=== PATIENT | male | born 1970 | race Caucasian/White ===

== ENCOUNTER 2016-06-18 09:51 | Emergency (ER) | payer OTHER ==
--- NOTE | 2016-06-18 10:40 | ED ---
Extremity Problem HPI - General Chief complaint: Extremity Problem,Nontraumatic Stated complaint: Foot pain Time Seen by Provider: 06/18/16 10:26 Source: patient Mode of arrival: ambulatory Limitations: no limitations - History of Present Illness Initial comments: 45-year-old male presenting for gout attack in his left foot MTP. Patient states he's had recurrent issues with gout flareups in both of his feet over the past several years. He is not currently on allopurinol. He states that he believes this was triggered by eating steak about a week ago. He denies any injury or trauma to the area. He denies any fevers or chills. - Related Data Home Medications Medication Instructions Recorded Confirmed Aspirin 81 mg PO DAILY 10/12/13 06/18/16 Previous Rx's Medication Instructions Recorded Indomethacin [Indocin] 50 mg PO TID #21 capsule 06/18/16 Allergies Allergy/AdvReac Type Severity Reaction Status Date / Time No Known Allergies Allergy Verified 06/18/16 10:36 Review of Systems ROS Statement: Those systems with pertinent positive or pertinent negative responses have been documented in the HPI. ROS Other: All systems not noted in ROS Statement are negative. Past Medical History Past Medical History: No Reported History History of Any Multi-Drug Resistant Organisms: None Reported Past Surgical History: No Surgical Hx Reported Past Psychological History: No Psychological Hx Reported Smoking Status: Current every day smoker Past Alcohol Use History: None Reported Past Drug Use History: None Reported General Exam - General Exam Comments Initial Comments: General: Awake and Alert. No acute distress. Does not appear acutely ill. Eyes: NELIDA, EOM intact. No scleral icterus. HENT: Atraumatic, normocephalic. Mucous membranes moist. Trachea midline. Neck: The neck is supple, there is no tenderness or JVD. Cardiovascular: Regular rate and rhythm. Distal pulses intact. Respiratory: No respiratory distress. Nonlabored breathing. Normal respiratory rate. Gastrointestinal: Soft, Nontender. Non-distended. Musculoskeletal: No tenderness. Normal ROM. No gross deformity. No strength deficits. Left foot MTP with overlying erythema and tenderness. He is able to move all digits. Good distal pulses. Sensation intact distally. Neurological: A&Ox3. CN II-XII grossly intact, There are no obvious motor or sensory deficits. Coordination appears grossly intact. Speech is normal. Gait is normal. Skin: Skin is warm and dry and no rashes or lesions are noted. Psychiatric: Cooperative, appropriate mood & affect, normal judgment. Limitations: no limitations Course Vital Signs 06/18/16 06/18/16 10:22 10:52 Temperature 97.6 F 97.7 F Pulse Rate 79 75 Respiratory 20 16 Rate Blood Pressure 178/100 160/78 O2 Sat by Pulse 99 98 Oximetry Medical Decision Making - Medical Decision Making 45-year-old male presenting for left foot gout flareup. Patient without significant risk concerning for septic joint at this time. Symptoms do appear consistent with gout flare. Discussed dietary recommendations. Patient was written for indomethacin for symptomatic management. Discussed elevating affected limb and heat packs as well. Discussed importance of starting allopurinol given the recurrent nature of this, although he will need to follow up with his PCP after this flareup has resolved to pursue this. Patient voices understanding of this. Patient is otherwise stable and safe for discharge home. Discussed concerning signs symptoms for immediate return to the ED. Patient is agreeable to plan of discharge home. Disposition Clinical Impression: Acute gout of left foot Disposition: HOME SELF-CARE Condition: Stable Instructions: Gout (ED), Low Purine Diet (ED) Additional Instructions: Please follow up with your regular doctor in the next few weeks after the flare up has resolved, and discuss being started on Allopurinol to help prevent further gout flareups. Prescriptions: Indomethacin [Indocin] 50 mg PO TID #21 capsule Referrals: None,Stated [Primary Care Provider] - 1-2 days Time of Disposition: 10:35
[2016-06-18 10:54] VITALS: BP 160/78; PULSE 75; RESP 16; TEMP 97.7
== END 2016-06-18 10:52 | disposition home or self-care (01) ==
LOC: EC 09:51
DX: M10.9 Gout, unspecified (principal); F17.200 Nicotine dependence, unspecified, uncomplicated; Z79.82 Long term (current) use of aspirin
CPT/HCPCS: 99283

== ENCOUNTER 2016-12-20 11:52 | Emergency (ER) | payer OTHER ==
[2016-12-20 11:58] VITALS: TEMP 99
[2016-12-20] MEDS ORDERED: KETOROLAC 30 MG/ML 1 ML VIAL IVP STA (12:05)
--- NOTE | 2016-12-20 12:06 | ED ---
General Adult HPI - General Chief complaint: Chest Pain Stated complaint: chest pain Time Seen by Provider: 12/20/16 12:04 Source: patient, family, RN notes reviewed, old records reviewed Mode of arrival: wheelchair Limitations: no limitations - History of Present Illness Initial comments: This is a 46-year-old male to the ER for evaluation of chest pain. Left sided chest pain left-sided breast pain, pain for 2 days. Consistent. Patient does have history of high blood pressures of alcohol abuse history of smoking abuse. No recent fevers no cough no congestion or shortness of breath. Pain is worse with movement pain is rated on his left rib right under his left nipple. Patient was recently admitted in the hospital for blood pressure control and evaluation of his heart, patient states all symptoms and test came back normal all symptoms have resolved and patient has having much better blood pressure control at this time - Related Data Home Medications Medication Instructions Recorded Confirmed Aspirin 81 mg PO DAILY 10/12/13 06/18/16 Allergies Allergy/AdvReac Type Severity Reaction Status Date / Time atenolol Allergy Unknown Verified 12/20/16 13:11 Review of Systems ROS Statement: Those systems with pertinent positive or pertinent negative responses have been documented in the HPI. ROS Other: All systems not noted in ROS Statement are negative. Past Medical History Past Medical History: Hypertension History of Any Multi-Drug Resistant Organisms: None Reported Past Surgical History: No Surgical Hx Reported Past Psychological History: Anxiety Smoking Status: Current every day smoker Past Alcohol Use History: Daily Past Drug Use History: None Reported General Exam - General Exam Comments Initial Comments: Reproducible tenderness to left ribs Limitations: no limitations General appearance: alert, in no apparent distress Head exam: Present: atraumatic, normocephalic, normal inspection Eye exam: Present: normal appearance, PERRL, EOMI. Absent: scleral icterus, conjunctival injection, periorbital swelling ENT exam: Present: normal exam, mucous membranes moist Neck exam: Present: normal inspection. Absent: tenderness, meningismus, lymphadenopathy Respiratory exam: Present: normal lung sounds bilaterally. Absent: respiratory distress, wheezes, rales, rhonchi, stridor Cardiovascular Exam: Present: regular rate, normal rhythm, normal heart sounds. Absent: systolic murmur, diastolic murmur, rubs, gallop, clicks GI/Abdominal exam: Present: soft, normal bowel sounds. Absent: distended, tenderness, guarding, rebound, rigid Extremities exam: Present: normal inspection, full ROM, normal capillary refill. Absent: tenderness, pedal edema, joint swelling, calf tenderness Back exam: Present: normal inspection Neurological exam: Present: alert, oriented X3, CN II-XII intact Psychiatric exam: Present: normal affect, normal mood Skin exam: Present: warm, dry, intact, normal color. Absent: rash Course Vital Signs 12/20/16 11:55 Temperature 99 F Pulse Rate 74 Respiratory 16 Rate Blood Pressure 150/78 O2 Sat by Pulse 98 Oximetry - Reevaluation(s) Reevaluation #1: 12/20/16 13:14 Patient does have improvement pain control with Toradol, no acute distress EKG Findings - EKG Comments: EKG Findings:: EKG shows normal sinus of 60, KY 136, QRS 100, QTC 414 Medical Decision Making - Medical Decision Making 38 female here for evaluation of chest pain. Left-sided chest pain, no fevers cough congestion history of high blood pressure smoking, at this time patient would like to be discharged home, however considerable EKG is negative, both lipase and DVT, d-dimer negative - Radiology Data Radiology results: report reviewed, image reviewed Disposition Clinical Impression: Chest pain Disposition: HOME SELF-CARE Condition: Good Instructions: Chest Pain (ED) Referrals: Boni Monet MD [Primary Care Provider] - 1-2 days
--- NOTE | 2016-12-20 13:04 | XR ---
EXAMINATION TYPE: XR chest 2V DATE OF EXAM: 12/20/2016 COMPARISON: 07/15/2009 TECHNIQUE: PA and lateral views submitted. HISTORY: Chest pain FINDINGS: Subsegmental changes left lung base. Hyperinflation noted. Chronic rib deformities are seen. No overt failure. Hypertrophic and degenerative change of the spine. IMPRESSION: 1. No acute process. Correlate for COPD. 2. Subsegmental changes left lung base. Atelectasis favored over infiltrate. Correlate clinically. 3. Tiny nodularity overlying the cardiac border and lateral view may represent tiny granuloma short-t erm follow up CT chest is obtained.
[2016-12-20 13:32] LABS: Basophils % (A) 0 %; CH 33.2; CHCM 35.7; Eosinophils # (A) 0.2 k/uL (0-0.7); Eosinophils % (A) 3 %; HCT 44.5 % (39.0-53.0); HDW 2.11; HGB 15.9 gm/dL (13.0-17.5); Luc # (Auto) 0.14; Luc % (Auto) 2; Lymphocytes # (A) 1.3 k/uL (1.0-4.8); Lymphocytes % (A) 18 %; MCH 33.3 pg (25.0-35.0); MCHC 35.7 g/dL (31.0-37.0); MCV 93.1 fL (80.0-100.0); Mean Platelet Volume 7.5; Monocytes # (A) 0.5 k/uL (0-1.0); Monocytes % (A) 7 %; Neutrophils # (A) 5.1 k/uL (1.3-7.7); Neutrophils % (A) 69 %; RBC 4.78 m/uL (4.30-5.90); RDW 11.9 % (11.5-15.5); WBC 7.4 k/uL (3.8-10.6); WBC (Perox) 7.05
[2016-12-20 13:46] VITALS: BP 131/80; PULSE 70; RESP 18
[2016-12-20 13:47] LABS: ALT 50 U/L (21-72); AST 35 U/L (17-59); Alkaline Phosphatase 112 U/L (38-126); Anion Gap 8 mmol/L; Blood Urea Nitrogen 17 mg/dL (9-20); Calcium 9.4 mg/dL (8.4-10.2); Carbon Dioxide 27 mmol/L (22-30); Chloride 107 mmol/L (98-107); Glucose 130 mg/dL (74-99); Magnesium 1.9 mg/dL (1.6-2.3); Non-African American GFR(MDRD) >60 (>60 ml/min/1.73 sqM); Potassium 3.8 mmol/L (3.5-5.1); Sodium 142 mmol/L (137-145); Total Bilirubin 0.7 mg/dL (0.2-1.3); Total Protein 6.4 g/dL (6.3-8.2)
[2016-12-20 13:48] LABS: Creatine Kinase 87 U/L (55-170)
[2016-12-20 13:49] LABS: INR 1.1 (<1.2)
[2016-12-20] MEDS ORDERED: RX INFO: IV CONTRAST WAS GIVEN 1 EACH MISC MISCELLANE PRN (13:56)
[2016-12-20 14:00] LABS: Creatine Kinase MB 1.8 ng/mL (0.0-2.4); Troponin I <0.012 ng/mL (0.000-0.034)
--- NOTE | 2016-12-20 14:40 | CT ---
EXAMINATION TYPE: CT angio chest DATE OF EXAM: 12/20/2016 2:29 PM COMPARISON: NONE HISTORY: Lt side chest pain CT DLP: 389.1 mGycm Automated exposure control for dose reduction was used. CONTRAST: CTA scan of the thorax is performed with IV Contrast, patient injected with 77 mL of Omnipaque 350, p ulmonary embolism protocol. . FINDINGS: There is a 4 mm calcified granuloma in the right midlung there is a second, partially calci fied lesion along the major fissure on the right in the superior segment of the right lower lobe. Sev eral other calcified granulomas are identified. There is some airspace disease in the lateral aspect of the left lingula. There is some dependent ate lectasis. There is a small left effusion. There is no significant axillary, mediastinal or hilar adenopathy. There is no evidence of pulmonary embolus. Aorta is normal in caliber without evidence of dissection. The heart is not enlarged. There is a small hiatal hernia present. There is evidence of old granulomatous disease within the spleen. There is hypertrophic spondylosis within the dorsal spine. IMPRESSION: 1. THIS EXAMINATION IS NEGATIVE FOR PULMONARY EMBOLUS. 2. EVIDENCE OF OLD GRANULOMATOUS DISEASE INVOLVING THE SPLEEN AND LUNGS. 3. SMALL AMOUNT OF CONSOLIDATION IN THE LEFT LINGULA WITH CONCOMITANT EFFUSION. 4. DEGENERATIVE CHANGES WITHIN THE SPINE.
== END 2016-12-20 15:10 | disposition home or self-care (01) ==
LOC: EC 11:52
DX: R07.9 Chest pain, unspecified (principal); N64.4 Mastodynia; I10 Essential (primary) hypertension; F17.200 Nicotine dependence, unspecified, uncomplicated; Z79.82 Long term (current) use of aspirin; Z88.8 Allergy status to other drugs, medicaments and biological substances
CPT/HCPCS: 36415; 93005; 85379; 83880; 80053; 82550; 82553; 83690; 83735; 84484; 85025; 85610; 85730; 71020; 71275; 99285; 96374; Q9967; J1885

== ENCOUNTER 2017-07-12 07:09 | Emergency (ER) | payer OTHER ==
[2017-07-12 07:15] VITALS: BP 161/95; PULSE 69; RESP 16; TEMP 97.4
[2017-07-12] MEDS ORDERED: KETOROLAC 60 MG/2 ML VIAL IM STA (07:47)
--- NOTE | 2017-07-12 07:51 | ED ---
General Adult HPI - General Chief complaint: Extremity Problem,Nontraumatic Stated complaint: Foot pain Time Seen by Provider: 07/12/17 07:10 Source: patient, RN notes reviewed Mode of arrival: ambulatory Limitations: no limitations - History of Present Illness Initial comments: This is a 47-year-old male who presents to the emergency department complaining of left foot pain. Patient states been hurting for the last couple of days he doesn't recall injuring it but it is swelled up in the middle of his foot and now it hurts to walk on. Patient states he is able to walk on it but he does a lot of walking all day and it's irritating he wanted to make sure he didn't have a fracture in his foot. Patient denies any ankle pain patient denies knee pain patient denies any direct trauma or injury to the foot. - Related Data Home Medications Medication Instructions Recorded Confirmed Bisoprolol-Hctz 5-6.25 mg [Ziac 1 tab PO DAILY 12/20/16 07/12/17 5-6.25] Previous Rx's Medication Instructions Recorded Ibuprofen [Motrin] 600 mg PO Q6HR PRN #20 tab 07/12/17 Allergies Allergy/AdvReac Type Severity Reaction Status Date / Time atenolol Allergy Unknown Verified 07/12/17 08:38 Review of Systems ROS Statement: Those systems with pertinent positive or pertinent negative responses have been documented in the HPI. ROS Other: All systems not noted in ROS Statement are negative. Past Medical History Past Medical History: Hypertension History of Any Multi-Drug Resistant Organisms: None Reported Past Surgical History: No Surgical Hx Reported Past Psychological History: Anxiety Smoking Status: Current every day smoker Past Alcohol Use History: Occasional Past Drug Use History: None Reported General Exam - General Exam Comments Initial Comments: GENERAL Patient is well-developed and well-nourished. Patient is in mild distress. EYES Patient's pupils are equal and round. Extraocular motion is intact SKIN Unremarkable NEURO The patient is alert and oriented 3 PYSCH Patient has normal interpersonal interactions. MUSCULOSKELETAL The top left foot is mildly swollen and is tender to palpation Limitations: no limitations Course Vital Signs 07/12/17 07:12 Temperature 97.4 F L Pulse Rate 69 Respiratory 16 Rate Blood Pressure 161/95 O2 Sat by Pulse 99 Oximetry Medical Decision Making - Medical Decision Making x-ray shows no acute injury. Disposition Clinical Impression: Foot sprain Disposition: HOME SELF-CARE Instructions: Foot Sprain (ED) Prescriptions: Ibuprofen [Motrin] 600 mg PO Q6HR PRN #20 tab PRN Reason: For pain Referrals: Boni Monet MD [Primary Care Provider] - 1-2 days Time of Disposition: 08:49
--- NOTE | 2017-07-12 08:40 | XR ---
Left foot HISTORY: Pain and swelling 3 views of the left foot Bone mineralization, joint spaces and alignment are maintained. Soft tissue swelling noted at the fir st metatarsophalangeal joint and dorsum of the foot. Some degenerative change present at the joint. T here is a plantar calcaneal spur. Spurring also present at the intertarsal joints. IMPRESSION: Osteoarthritis.
== END 2017-07-12 09:06 | disposition home or self-care (01) ==
LOC: EC 07:09
DX: S93.602A Unspecified sprain of left foot, initial encounter (principal); I10 Essential (primary) hypertension; F17.200 Nicotine dependence, unspecified, uncomplicated; Z79.899 Other long term (current) drug therapy; Z88.8 Allergy status to other drugs, medicaments and biological substances
CPT/HCPCS: 73630; 99283; 96372; J1885

== ENCOUNTER 2018-01-28 06:54 | Emergency (ER) | payer OTHER ==
[2018-01-28] MEDS ORDERED: MECLIZINE 12.5 MG TAB PO STA (07:11)
[2018-01-28] MEDS ORDERED: SODIUM CHLORIDE 0.9% 1,000 ML IV STA ×2 (07:11)
--- NOTE | 2018-01-28 07:15 | ED ---
Dizziness HPI - General Chief Complaint: Dizziness Stated Complaint: ANXIETY Time Seen by Provider: 01/28/18 07:02 Source: patient, RN notes reviewed, old records reviewed Mode of arrival: ambulatory Limitations: no limitations - History of Present Illness Initial Comments: 47-year-old male presents emergency Department due to complaint of dizziness. Patient reports that he woke up around 3 AM feeling dizzy and lightheaded. Patient states that his took his blood pressure before leaving for work and he does not remember the number but feels like the diastolic number was 160. Patient states that he has had no fevers or chills. He denies any reasons for dehydration including nausea vomiting or diarrhea. He denies any significant chest pain. He does relate that he has a history of anxiety. Patient is a smoker. Patient denies any headaches. - Related Data Home Medications Medication Instructions Recorded Confirmed Bisoprolol-Hctz 5-6.25 mg [Ziac 1 tab PO DAILY 12/20/16 01/28/18 5-6.25] Aspirin EC [Ecotrin Low Dose] 81 mg PO DAILY 01/28/18 01/28/18 Allergies Allergy/AdvReac Type Severity Reaction Status Date / Time atenolol Allergy Unknown Verified 01/28/18 07:20 Review of Systems ROS Statement: Those systems with pertinent positive or pertinent negative responses have been documented in the HPI. ROS Other: All systems not noted in ROS Statement are negative. Past Medical History Past Medical History: Hypertension History of Any Multi-Drug Resistant Organisms: None Reported Past Surgical History: No Surgical Hx Reported Past Psychological History: Anxiety Smoking Status: Current every day smoker Past Alcohol Use History: Occasional Past Drug Use History: None Reported General Exam - General Exam Comments Initial Comments: 47-year-old male. Alert and oriented 3. No acute distress. Limitations: no limitations General appearance: alert, in no apparent distress Head exam: Present: atraumatic, normocephalic, normal inspection Eye exam: Present: normal appearance, PERRL, EOMI. Absent: scleral icterus, conjunctival injection, periorbital swelling ENT exam: Present: normal exam, mucous membranes moist Neck exam: Present: normal inspection. Absent: tenderness, meningismus, lymphadenopathy Respiratory exam: Present: normal lung sounds bilaterally. Absent: respiratory distress, wheezes, rales, rhonchi, stridor Cardiovascular Exam: Present: regular rate, normal rhythm, normal heart sounds. Absent: systolic murmur, diastolic murmur, rubs, gallop, clicks GI/Abdominal exam: Present: soft, normal bowel sounds. Absent: distended, tenderness, guarding, rebound, rigid Extremities exam: Present: normal inspection, full ROM, normal capillary refill. Absent: tenderness, pedal edema, joint swelling, calf tenderness Back exam: Present: normal inspection Neurological exam: Present: alert, oriented X3, CN II-XII intact Psychiatric exam: Present: normal affect, normal mood Skin exam: Present: warm, dry, intact, normal color. Absent: rash Course Vital Signs 01/28/18 01/28/18 06:58 07:57 Temperature 98.2 F Pulse Rate 51 L 49 L Respiratory 16 16 Rate Blood Pressure 149/91 160/90 O2 Sat by Pulse 99 96 Oximetry Medical Decision Making - Medical Decision Making 47-year-old male presents emergency Department chief complaint of dizziness. He questions that he was having a panic attack this is occurring around 3 AM today. Patient is some episodes of vomiting complaint of increased gas production. A discussed at this time patient's EKG shows no significant changes. He did report that he's had outpatient stress test with the past year at [facility]. Patient had no abdominal tenderness, lung sounds are clear to auscultation and heart was normal rate and rhythm. Troponin was negative at this time. Patient's lab work otherwise was unremarkable. I discussed at this time patient's etiology could be related to an anxiety attack. He does state he feels better upon arriving to the emergency department. Discussed also the possibility of gallbladder etiology for increased belching. Patient has been advised that close follow-up with his primary care physician and to return to the emergency department if any alarming signs or symptoms occur. Discussed the Patient could likely get further testing per the gallbladder as well as recommended following up with a loan and credit manager. I did discuss the case with Dr. Raphael. Patient understands treatment plan will comply. Return parameters were discussed. - Lab Data Result diagrams: 01/28/18 07:29 01/28/18 07:29 Lab Results 01/28/18 01/28/18 01/28/18 Range/Units 07:29 07:29 07:29 WBC 5.3 (3.8-10.6) k/uL RBC 4.69 (4.30-5.90) m/uL Hgb 14.9 (13.0-17.5) gm/dL Hct 43.7 (39.0-53.0) % MCV 93.0 (80.0-100.0) fL MCH 31.8 (25.0-35.0) pg MCHC 34.2 (31.0-37.0) g/dL RDW 12.0 (11.5-15.5) % Plt Count 152 (150-450) k/uL Neutrophils % 61 % Lymphocytes % 24 % Monocytes % 8 % Eosinophils % 5 % Basophils % 1 % Neutrophils # 3.3 (1.3-7.7) k/uL Lymphocytes # 1.3 (1.0-4.8) k/uL Monocytes # 0.4 (0-1.0) k/uL Eosinophils # 0.3 (0-0.7) k/uL Basophils # 0.0 (0-0.2) k/uL Sodium 145 (137-145) mmol/L Potassium 4.0 (3.5-5.1) mmol/L Chloride 111 H (98-107) mmol/L Carbon Dioxide 25 (22-30) mmol/L Anion Gap 9 mmol/L BUN 21 H (9-20) mg/dL Creatinine 0.93 (0.66-1.25) mg/dL Est GFR (CKD-EPI)AfAm >90 (>60 ml/min/1.73 sqM) Est GFR (CKD-EPI)NonAf >90 (>60 ml/min/1.73 sqM) Glucose 113 H (74-99) mg/dL Calcium 9.5 (8.4-10.2) mg/dL Total Bilirubin 0.5 (0.2-1.3) mg/dL AST 35 (17-59) U/L ALT 36 (21-72) U/L Alkaline Phosphatase 97 (38-126) U/L Troponin I <0.012 (0.000-0.034) ng/mL Total Protein 6.7 (6.3-8.2) g/dL Albumin 3.7 (3.5-5.0) g/dL 01/28/18 07:34 EKG shows sinus bradycardia with marked sinus arrhythmia, incomplete right bundle block. Whirling EKG noted. Ventricular rate of 51 bpm. LA interval is 170 ms. QRS ration 104 ms. QTQTC's 44/400 ms. - Radiology Data Interpreted by me: Chest x-ray was reviewed and negative for any acute cardiac pulmonary process. This is read by Dr. gregg. Disposition Clinical Impression: Light-headed feeling Disposition: HOME SELF-CARE Condition: Good Instructions: Dizziness (ED) Additional Instructions: Patient is advised to rest, remain hydrated. Have close follow-up with primary care physician within the week. Follow up in regards to possible anxiety , gallbladder issues. Return to the emergency department if any alarming signs or symptoms occur. Is patient prescribed a controlled substance at d/c from ED?: No Referrals: Boni Monet MD [Primary Care Provider] - 1-2 days Time of Disposition: 08:44
[2018-01-28 07:38] LABS: Basophils % (A) 1 %; Eosinophils # (A) 0.3 k/uL (0-0.7); Eosinophils % (A) 5 %; HCT 43.7 % (39.0-53.0); HGB 14.9 gm/dL (13.0-17.5); Lymphocytes # (A) 1.3 k/uL (1.0-4.8); Lymphocytes % (A) 24 %; MCH 31.8 pg (25.0-35.0); MCHC 34.2 g/dL (31.0-37.0); Mean Platelet Volume 7.8; Monocytes # (A) 0.4 k/uL (0-1.0); Monocytes % (A) 8 %; Neutrophils # (A) 3.3 k/uL (1.3-7.7); Neutrophils % (A) 61 %; Platelet Count 152 k/uL (150-450); RBC 4.69 m/uL (4.30-5.90); WBC 5.3 k/uL (3.8-10.6)
[2018-01-28 07:46] LABS: ALT 36 U/L (21-72); AST 35 U/L (17-59); Albumin 3.7 g/dL (3.5-5.0); Alkaline Phosphatase 97 U/L (38-126); Anion Gap 9 mmol/L; Blood Urea Nitrogen 21 mg/dL (9-20); Calcium 9.5 mg/dL (8.4-10.2); Carbon Dioxide 25 mmol/L (22-30); Chloride 111 mmol/L (98-107); Glucose 113 mg/dL (74-99); Sodium 145 mmol/L (137-145); Total Bilirubin 0.5 mg/dL (0.2-1.3); Total Protein 6.7 g/dL (6.3-8.2)
[2018-01-28 07:59] VITALS: PULSE 49
--- NOTE | 2018-01-28 08:01 | XR ---
EXAMINATION TYPE: XR chest 2V DATE OF EXAM: 01/28/2018 COMPARISON: Chest x-ray and CT chest December 20, 2016. HISTORY: Shortness of breath and dizziness. TECHNIQUE: Frontal and lateral views of the chest are obtained. FINDINGS: There is no focal air space opacity, pleural effusion, or pneumothorax seen. Some calcifi ed nodules or granulomas scattered throughout the right lung are redemonstrated The cardiac silhouett e size is within normal limits. There are several old posterior lateral left upper to mid rib fractur es redemonstrated. IMPRESSION: No acute cardiopulmonary process.
[2018-01-28 08:47] LABS: Appearance,Urine Clear (Clear); Bilirubin,Urine Negative (Negative); Blood,Urine Trace (Negative); Color,Urine Light Yellow; Glucose,Urine (UA) Negative (Negative); Ketones,Urine Negative (Negative); Leukocyte Esterase,Urine Negative (Negative); Mucus,Urine Rare /hpf; Nitrite,Urine Negative (Negative); PH, Urine 5.5 (5.0-8.0); Protein,Urine Negative (Negative); RBC,Urine 2 /hpf (0-5); Specific Gravity,Urine 1.011 (1.001-1.035); Urobilinogen,Urine <2.0 mg/dL (<2.0); WBC,Urine <1 /hpf (0-5)
[2018-01-28 08:52] LABS: Amphetamine Screen,Urine Not Detected (NotDetected); Barbiturate Screen,Urine Not Detected (NotDetected); Benzodiazepines Screen,Urine Not Detected (NotDetected); Cocaine Screen,Urine Not Detected (NotDetected); Methadone Screen, Urine Not Detected (NotDetected); Opiate Screen,Urine Not Detected (NotDetected); Oxycodone Screen, Urine Not Detected (NotDetected); Phencyclidine Screen,Urine Not Detected (NotDetected); Tricyclic Antidepressant,Urine Not Detected (NotDetected); Urn Cannabinoid Scrn Not Detected (NotDetected)
[2018-01-28 09:01] VITALS: BP 152/92; RESP 18; TEMP 97.2
== END 2018-01-28 09:01 | disposition home or self-care (01) ==
LOC: EC 06:54
DX: R42 Dizziness and giddiness (principal); R11.10 Vomiting, unspecified; F41.9 Anxiety disorder, unspecified; I10 Essential (primary) hypertension; F17.200 Nicotine dependence, unspecified, uncomplicated; Z79.82 Long term (current) use of aspirin; Z79.899 Other long term (current) drug therapy; Z88.8 Allergy status to other drugs, medicaments and biological substances
CPT/HCPCS: 36415; 71046; 80053; 80306; 81001; 84484; 85025; 93005; 96360; 99284

== ENCOUNTER 2018-11-08 13:27 | Emergency (ER) | payer OTHER ==
[2018-11-08 13:45] VITALS: BP 143/99; PULSE 90; RESP 18; TEMP 98.1
[2018-11-08] MEDS ORDERED: KETOROLAC 60 MG/2 ML VIAL IM STA (14:27)
--- NOTE | 2018-11-08 14:46 | ED ---
General Adult HPI - General Chief complaint: Extremity Injury, Lower Stated complaint: Gout Time Seen by Provider: 11/08/18 13:47 Source: patient, RN notes reviewed, old records reviewed Mode of arrival: ambulatory Limitations: no limitations - History of Present Illness Initial comments: 48-year-old male patient past medical history of gout presents ED for reported gout exacerbation that has been ongoing for 1 week. Patient reports that he has pain in his right great toe as well as bases ankle. Patient reports that these are identical to his gout symptoms of the past. Patient has a new concerning symptoms, denies any fevers chills, nausea vomiting diarrhea, denies other complaints. Systemic: Pt denies fatigue, fever/chills, rash. Pt denies weakness, night sweats, weight loss. Neuro: Pt denies headache, visual disturbances, syncope or pre-syncope. HEENT: Pt denies ocular discharge or irritation, otalgia, rhinorrhea, pharyngiti s or notable lymphadenopathy. Cardiopulmonary: Pt denies chest pain, SOB, heart palpitations, dyspnea on exertion. Abdominal/GI: Pt denies abdominal pain, n/v/d. : Pt denies dysuria, burning w/ urination, frequency/urgency. Denies new onset urinary or bowel incontinence. MSK: Pt deniesoss of strength or function in extremities. Neuro: Pt denies new onset weakness, paresthesias. - Related Data Home Medications Medication Instructions Recorded Confirmed Bisoprolol-Hctz 5-6.25 mg [Ziac 1 tab PO DAILY 12/20/16 01/28/18 5-6.25] Aspirin EC [Ecotrin Low Dose] 81 mg PO DAILY 01/28/18 01/28/18 Previous Rx's Medication Instructions Recorded Ibuprofen [Motrin] 600 mg PO Q6HR PRN #40 day 11/08/18 Allergies Allergy/AdvReac Type Severity Reaction Status Date / Time atenolol Allergy Unknown Verified 01/28/18 07:20 Review of Systems ROS Statement: Those systems with pertinent positive or pertinent negative responses have been documented in the HPI. ROS Other: All systems not noted in ROS Statement are negative. Past Medical History Past Medical History: Hypertension Additional Past Medical History / Comment(s): gout History of Any Multi-Drug Resistant Organisms: None Reported Past Surgical History: No Surgical Hx Reported Past Psychological History: Anxiety Smoking Status: Current every day smoker Past Alcohol Use History: Occasional Past Drug Use History: None Reported General Exam - General Exam Comments Initial Comments: Constitutional: NAD, AOX3, Pt has pleasant affect. HEENT: NC/AT, trachea midline, neck supple, no lymphadenopathy. Posterior pharynx non erythematous, without exudates. External ears appear normal, without discharge. Mucous membranes moist. Eyes PERRLA, EOM intact. There is no scleral icterus. No pallor noted. Cardiopulmonary: RRR, no murmurs, rubs or gallops, no JVD noted. Lungs CTAB in anterior and posterior vides. No peripheral edema. Abdominal exam: Abdomen soft and non-distended. Abdomen non-tender to palpation in all 4 quadrants. Bowel sounds active in LLQ. No hepatosplenomegaly. No ecchymosis Neuro: CN II-XII grossly intact. No nuchal rigidity. No raccon eyes, no baldwin sign, no hemotympanum. No cervical spinal tenderness. MSK: Right great toe, anterior aspect of ankle mortise mildly tender to palpation. No other areas of tenderness. No erythema or skin changes. Distal pulses intact and equal. Capillary refill less than 2 seconds. No posterior calf tenderness bilaterally, homans sign negative bilaterally. Posterior tibialis and radial pulse +2 bilaterally. Sensation intact in upper and lower extremities. Full active ROM in upper and lower extremities, 5/5 stregnth. Limitations: no limitations Course Vital Signs 11/08/18 13:41 Temperature 98.1 F Pulse Rate 90 Respiratory 18 Rate Blood Pressure 143/99 O2 Sat by Pulse 98 Oximetry Medical Decision Making - Medical Decision Making 48-year-old male patient presents to ED with chief complaint of gout exacerbation. Patient wasn't stable, afebrile. Physicla exam displayed: Right great toe, anterior aspect of ankle mortise mildly tender to palpation. No other areas of tenderness. No erythema or skin changes. Distal pulses intact and equal. Patient administered a dose of Toradol, will discharge ibuprofen. Patient follow up with primary care provider tomorrow. Return to ER patient worsens. Case discussed with Dr. George. Disposition Clinical Impression: Gout Disposition: HOME SELF-CARE Condition: Stable Instructions (If sedation given, give patient instructions): Low Purine Diet (ED), Gout (ED) Additional Instructions: Patient to adhere to previously discussed treatment plan and will take medication(s) as directed. Patient to follow up with PCP in 1-2 days. Patient to return to ED if symptoms do not improve. Take medication as directed. Follow-up with primary care provider tomorrow. Return to ER if condition worsens. Prescriptions: Ibuprofen [Motrin] 600 mg PO Q6HR PRN #40 day PRN Reason: Pain Is patient prescribed a controlled substance at d/c from ED?: No Referrals: Boni Monet MD [Primary Care Provider] - 1-2 days
== END 2018-11-08 15:08 | disposition home or self-care (01) ==
LOC: EC 13:27
DX: M10.9 Gout, unspecified (principal); I10 Essential (primary) hypertension; F17.200 Nicotine dependence, unspecified, uncomplicated; Z79.82 Long term (current) use of aspirin; Z79.899 Other long term (current) drug therapy; Z88.8 Allergy status to other drugs, medicaments and biological substances
CPT/HCPCS: 99283; 96372; J1885

== ENCOUNTER 2019-08-20 11:38 | Emergency (ER) | payer OTHER ==
[2019-08-20 11:47] VITALS: TEMP 98
[2019-08-20] MEDS ORDERED: KETOROLAC 60 MG/2 ML VIAL IM STA (12:04)
--- NOTE | 2019-08-20 12:08 | ED ---
General Adult HPI - General Chief complaint: Extremity Problem,Nontraumatic Stated complaint: possible blood clot Time Seen by Provider: 08/20/19 11:45 Source: patient, RN notes reviewed, old records reviewed Mode of arrival: wheelchair Limitations: no limitations - History of Present Illness Initial comments: This is a 49-year-old male who presents to the emergency department complaining of posterior right thigh pain. Patient states it started yesterday at work and now is become much more sensitive particularly to touch. Patient does not notice any swelling to the right patient denies any redness to the area. 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 Patient denies any swelling to the calf pain to the calf. Patient denies any lower leg symptoms. Patient states touching it or extending the lower leg completely increases the pain in that area. Patient points to the lower medial posterior aspect of the thigh. She denies any fever chills per patient denies any difficulty breathing shortest breath or chest pain. - Related Data Home Medications Medication Instructions Recorded Confirmed Bisoprolol-Hctz 5-6.25 mg [Ziac 1 tab PO DAILY 12/20/16 08/20/19 5-6.25] Aspirin EC [Ecotrin Low Dose] 81 mg PO DAILY 01/28/18 08/20/19 Previous Rx's Medication Instructions Recorded Apixaban [Eliquis Starter Pack 0 mg PO DIRECTED 30 Days #1 pack 08/20/19 (for VTE)] Allergies Allergy/AdvReac Type Severity Reaction Status Date / Time atenolol Allergy Unknown Verified 08/20/19 12:55 Review of Systems ROS Statement: Those systems with pertinent positive or pertinent negative responses have been documented in the HPI. ROS Other: All systems not noted in ROS Statement are negative. Past Medical History Past Medical History: Hypertension Additional Past Medical History / Comment(s): gout History of Any Multi-Drug Resistant Organisms: None Reported Past Surgical History: No Surgical Hx Reported Past Psychological History: Anxiety Smoking Status: Current every day smoker Past Alcohol Use History: Occasional Past Drug Use History: None Reported General Exam - General Exam Comments Initial Comments: GENERAL: Patient is well-developed and well-nourished. Patient is nontoxic and well- hydrated and is in mild distress. ENT: Neck has full range of motion without eliciting any pain. EYES: The sclera were anicteric and conjunctiva were pink and moist. Extraocular movements were intact and pupils were equal round and reactive to light. Eyelids were unremarkable. PULMONARY: Unlabored respirations. Good breath sounds bilaterally. No audible rales rhonchi or wheezing was noted. CARDIOVASCULAR: There is a regular rate and rhythm without any murmurs gallops or rubs. Patient has good DP pulses on the right ABDOMEN: Soft and nontender with normal bowel sounds. No palpable organomegaly was noted. There is no palpable pulsatile mass. SKIN: Skin is clear with no lesions or rashes and otherwise unremarkable. NEUROLOGIC: Patient is alert and oriented x3. Cranial nerves II through XII are grossly intact. Motor and sensory are also intact. Normal speech, volume and content. Symmetrical smile. MUSCULOSKELETAL: Normal extremities with adequate strength and full range of motion. Patient has some tenderness to the distal medial posterior aspect of the right thigh. There is no area of redness or swelling. LYMPHATICS: No significant lymphadenopathy is noted PSYCHIATRIC: Normal psychiatric evaluation Limitations: no limitations Course Vital Signs 08/20/19 11:44 Temperature 98 F Pulse Rate 62 Respiratory 18 Rate Blood Pressure 144/96 O2 Sat by Pulse 98 Oximetry Medical Decision Making - Medical Decision Making Ultrasound shows a DVT and superficial venous thrombosis. Patient was started on eliquis. Patient will be giving a prescription for eliquis to go home with Disposition Clinical Impression: Deep vein thrombosis (DVT) of lower extremity Disposition: HOME SELF-CARE Condition: Good Instructions (If sedation given, give patient instructions): Deep Vein Thrombosis (ED) Prescriptions: Apixaban [Eliquis Starter Pack (for VTE)] 0 mg PO DIRECTED 30 Days #1 pack Is patient prescribed a controlled substance at d/c from ED?: No Referrals: Boni Monet MD [Primary Care Provider] - 1-2 days Time of Disposition: 13:02
--- NOTE | 2019-08-20 12:40 | US ---
EXAMINATION TYPE: US venous doppler duplex LE RT DATE OF EXAM: 08/20/2019 12:31 PM COMPARISON: NONE CLINICAL HISTORY: Right leg pain . Pain. No redness or swelling. No injury. Not on blood clots. SIDE PERFORMED: Right TECHNIQUE: The lower extremity deep venous system is examined utilizing real time linear array sonog dominga with graded compression, doppler sonography and color-flow sonography. VESSELS IMAGED: External Iliac Vein (EIV) Common Femoral Vein Deep Femoral Vein Greater Saphenous Vein * Femoral Vein Popliteal Vein Small Saphenous Vein * Proximal Calf Veins (* superficial vessels) Right Leg: Appears POSITIVE for DVT at CFV/GSV junction. Appears POSITIVE for SVT in GSV. Grayscale, color doppler, spectral doppler imaging performed of the deep veins of the right lower ext remity. Acute venous thrombus in the greater saphenous vein is present with some extension into the c ommon femoral vein in the right groin region which is hyperexpanded with hyperechoic material and are as of diminished and absent color flow. IMPRESSION: Acute superficial and deep venous thrombosis right lower extremity as detailed above.
[2019-08-20] MEDS ORDERED: APIXABAN 5 MG TAB PO STA (12:57)
[2019-08-20 13:10] VITALS: RESP 20
[2019-08-20 13:11] VITALS: BP 136/99; PULSE 59
== END 2019-08-20 13:20 | disposition home or self-care (01) ==
LOC: EC 11:38
DX: I82.411 Acute embolism and thrombosis of right femoral vein (principal); I82.811 Embolism and thrombosis of superficial veins of right lower extremity; I10 Essential (primary) hypertension; F17.200 Nicotine dependence, unspecified, uncomplicated; Z79.82 Long term (current) use of aspirin; Z79.899 Other long term (current) drug therapy; Z88.8 Allergy status to other drugs, medicaments and biological substances
CPT/HCPCS: 93971; 99284; 96372; J1885

== ENCOUNTER 2019-11-19 14:01 | Emergency (ER) | payer OTHER ==
[2019-11-19] MEDS ORDERED: IBUPROFEN 600 MG TAB PO STA (14:29)
--- NOTE | 2019-11-19 14:50 | ED ---
Fever HPI - General Chief Complaint: Fever Stated Complaint: fever Time Seen by Provider: 11/19/19 14:20 Source: patient Mode of arrival: ambulatory Limitations: no limitations - History of Present Illness Initial Comments: 49-year-old male with history of hypertension, DVT, gout presenting to the ER today for cc of fever, urgency and foul smelling urine. Patient states the past 2 days he has had urgency and foul smelling urine he went to his primary care office where he had a fever and was told to come to the emergency department for evaluation patient denies any diarrhea. Admits to one episode of nausea. Denies CP, SOB or cough. Candelario URI symptoms such as sore throat or congestion. patient candelario abdominal pain. Admits to some fullness of the lower back b/l, denies unilateral back or flank pain Denies DM history of history of UTIs. bedside states he does have prostate disorder. Remaining ROS (-). Upon arrival patient does not appears toxic nor in distress. - Related Data Home Medications Medication Instructions Recorded Confirmed Bisoprolol-Hctz 5-6.25 mg [Ziac 1 tab PO DAILY 12/20/16 11/19/19 5-6.25] Allopurinol [Zyloprim] 300 mg PO DAILY 11/19/19 11/19/19 Apixaban [Eliquis] 5 mg PO BID 11/19/19 11/19/19 Previous Rx's Medication Instructions Recorded Cephalexin [Keflex] 500 mg PO Q6HR 10 Days #40 cap 11/19/19 Allergies Allergy/AdvReac Type Severity Reaction Status Date / Time atenolol AdvReac PASSED OUT Verified 11/19/19 18:22 Review of Systems ROS Statement: Those systems with pertinent positive or pertinent negative responses have been documented in the HPI. ROS Other: All systems not noted in ROS Statement are negative. Past Medical History Past Medical History: Hypertension Additional Past Medical History / Comment(s): gout History of Any Multi-Drug Resistant Organisms: None Reported Past Surgical History: No Surgical Hx Reported Past Psychological History: Anxiety Smoking Status: Current every day smoker Past Alcohol Use History: Occasional Past Drug Use History: None Reported General Exam - General Exam Comments Initial Comments: General: The patient is awake and alert, in no distress Eye: +3 mm pupils are equal, round and reactive to light, extra-ocular movements are intact. No nystagmus. There is normal conjunctiva bilaterally. No signs of icterus. Ears, nose, mouth and throat: There are moist mucous membranes and no oral lesions. Neck: The neck is supple, there is no tenderness or JVD. Cardiovascular: There is a regular rate and rhythm. No murmur, rub or gallop is appreciated. Respiratory: Lungs are clear to auscultation, respirations are non-labored, breath sounds are equal. No wheezes, stridor, rales, or rhonchi. Gastrointestinal: Soft, non-distended, non-tender abdomen without masses or organomegaly noted. There is no rebound or guarding present. No CVA tenderness. Musculoskeletal: Normal ROM, no tenderness. Strength 5/5. Sensation intact. Radial pulses equal bilaterally 2+. Neurological: A&O x 3. CN II-XII intact grossly, There are no obvious motor or sensory deficits. Coordination appears grossly intact. Speech is normal. Skin: Skin is warm and dry and no rashes or lesions are noted. Psychiatric: Cooperative, appropriate mood & affect, normal judgment. Limitations: no limitations Course Vital Signs 11/19/19 11/19/19 11/19/19 14:17 15:19 18:32 Temperature 101.4 F H 99.5 F Pulse Rate 87 96 Respiratory 18 16 16 Rate Blood Pressure 143/87 120/74 O2 Sat by Pulse 99 98 Oximetry 11/19/19 19:05 Temperature 98.6 F Pulse Rate 72 Respiratory 16 Rate Blood Pressure 142/82 O2 Sat by Pulse 97 Oximetry Medical Decision Making - Medical Decision Making nontoxic-appearing 49-year-old male who presents febrile complaining of foul- smelling urine and urgency. UA concerning for hemorrhagic cystitis. CT obtained to rule out a septic stone. No stone identified on CT. Patient denied a unilateral flank pain only very low back fullness. No severe pain. Patient does not appear toxic. He denies any past medical history that would make him immune compromise. Denies chronic steroid use. I encouraged admission however patient is adamant on discharge if possible I discussed [facility] Dr. Estevez who is agreeable to discharge with IV dose of rocephin, strict return parameters and f/u in 24-48 hours for repeat laboratory studies. Patient is agreeable to this care plan and discharge. she is to follow-up with urology within the next week - Lab Data Result diagrams: 11/19/19 14:43 11/19/19 14:43 Lab Results 11/19/19 11/19/19 11/19/19 Range/Units 14:43 14:43 14:43 WBC 9.1 (3.8-10.6) k/uL RBC 4.82 (4.30-5.90) m/uL Hgb 15.0 (13.0-17.5) gm/dL Hct 44.5 (39.0-53.0) % MCV 92.5 (80.0-100.0) fL MCH 31.1 (25.0-35.0) pg MCHC 33.6 (31.0-37.0) g/dL RDW 13.3 (11.5-15.5) % Plt Count 152 (150-450) k/uL Neutrophils % 82 % Lymphocytes % 7 % Monocytes % 8 % Eosinophils % 1 % Basophils % 0 % Neutrophils # 7.5 (1.3-7.7) k/uL Lymphocytes # 0.6 L (1.0-4.8) k/uL Monocytes # 0.7 (0-1.0) k/uL Eosinophils # 0.1 (0-0.7) k/uL Basophils # 0.0 (0-0.2) k/uL Sodium 135 L (137-145) mmol/L Potassium 4.2 (3.5-5.1) mmol/L Chloride 102 (98-107) mmol/L Carbon Dioxide 24 (22-30) mmol/L Anion Gap 9 mmol/L BUN 28 H (9-20) mg/dL Creatinine 1.51 H (0.66-1.25) mg/dL Est GFR (CKD-EPI)AfAm 61 (>60 ml/min/1.73 sqM) Est GFR (CKD-EPI)NonAf 53 (>60 ml/min/1.73 sqM) Glucose 124 H (74-99) mg/dL Plasma Lactic Acid Todd 1.2 (0.7-2.0) mmol/L Calcium 9.4 (8.4-10.2) mg/dL Total Bilirubin 1.2 (0.2-1.3) mg/dL AST 31 (17-59) U/L ALT 22 (4-49) U/L Alkaline Phosphatase 98 (38-126) U/L Total Protein 7.4 (6.3-8.2) g/dL Albumin 3.9 (3.5-5.0) g/dL Urine Color Urine Appearance (Clear) Urine pH (5.0-8.0) Ur Specific [place] (1.001-1.035) Urine Protein (Negative) Urine Glucose (UA) (Negative) Urine Ketones (Negative) Urine Blood (Negative) Urine Nitrite (Negative) Urine Bilirubin (Negative) Urine Urobilinogen (<2.0) mg/dL Ur Leukocyte Esterase (Negative) Urine RBC (0-5) /hpf Urine WBC (0-5) /hpf Urine WBC Clumps (None) /hpf Ur Squamous Epith Cells (0-4) /hpf Urine Bacteria (None) /hpf Hyaline Casts (0-2) /lpf Urine Mucus (None) /hpf 11/19/19 Range/Units 15:32 WBC (3.8-10.6) k/uL RBC (4.30-5.90) m/uL Hgb (13.0-17.5) gm/dL Hct (39.0-53.0) % MCV (80.0-100.0) fL MCH (25.0-35.0) pg MCHC (31.0-37.0) g/dL RDW (11.5-15.5) % Plt Count (150-450) k/uL Neutrophils % % Lymphocytes % % Monocytes % % Eosinophils % % Basophils % % Neutrophils # (1.3-7.7) k/uL Lymphocytes # (1.0-4.8) k/uL Monocytes # (0-1.0) k/uL Eosinophils # (0-0.7) k/uL Basophils # (0-0.2) k/uL Sodium (137-145) mmol/L Potassium (3.5-5.1) mmol/L Chloride (98-107) mmol/L Carbon Dioxide (22-30) mmol/L Anion Gap mmol/L BUN (9-20) mg/dL Creatinine (0.66-1.25) mg/dL Est GFR (CKD-EPI)AfAm (>60 ml/min/1.73 sqM) Est GFR (CKD-EPI)NonAf (>60 ml/min/1.73 sqM) Glucose (74-99) mg/dL Plasma Lactic Acid Todd (0.7-2.0) mmol/L Calcium (8.4-10.2) mg/dL Total Bilirubin (0.2-1.3) mg/dL AST (17-59) U/L ALT (4-49) U/L Alkaline Phosphatase (38-126) U/L Total Protein (6.3-8.2) g/dL Albumin (3.5-5.0) g/dL Urine Color Dark Brown Urine Appearance Turbid (Clear) Urine pH 5.5 (5.0-8.0) Ur Specific [place] 1.019 (1.001-1.035) Urine Protein 2+ H (Negative) Urine Glucose (UA) Negative (Negative) Urine Ketones Negative (Negative) Urine Blood Moderate H (Negative) Urine Nitrite Negative (Negative) Urine Bilirubin Negative (Negative) Urine Urobilinogen 3.0 (<2.0) mg/dL Ur Leukocyte Esterase Large H (Negative) Urine RBC >182 H (0-5) /hpf Urine WBC >182 H (0-5) /hpf Urine WBC Clumps Many H (None) /hpf Ur Squamous Epith Cells 2 (0-4) /hpf Urine Bacteria Occasional H (None) /hpf Hyaline Casts 14 H (0-2) /lpf Urine Mucus Few H (None) /hpf Disposition Clinical Impression: Pyelonephritis, Hemorrhagic cystitis Disposition: HOME SELF-CARE Condition: Good Additional Instructions: Please use medication as discussed. Please follow-up with family doctor in the next 2 days REPEAT Cr and BUN, urology in next week. IMMEDIATE RETURN FOR WORSENING SYMPTOMS, PERSISTENT fever Please return to emergency room if the symptoms increase or worsen or for any other concerns. Prescriptions: Cephalexin [Keflex] 500 mg PO Q6HR 10 Days #40 cap Is patient prescribed a controlled substance at d/c from ED?: No Referrals: Boni Monet MD [Primary Care Provider] - 1-2 days Ibrahima Santos MD [STAFF PHYSICIAN] - 1-2 days Time of Disposition: 18:48
[2019-11-19 15:01] LABS: Albumin 3.9 g/dL (3.5-5.0); Calcium 9.4 mg/dL (8.4-10.2); Potassium 4.2 mmol/L (3.5-5.1); Total Bilirubin 1.2 mg/dL (0.2-1.3); Total Protein 7.4 g/dL (6.3-8.2)
[2019-11-19 15:09] LABS: Basophils % (A) 0 %; Eosinophils # (A) 0.1 k/uL (0-0.7); Eosinophils % (A) 1 %; HCT 44.5 % (39.0-53.0); Lymphocytes # (A) 0.6 k/uL (1.0-4.8); Lymphocytes % (A) 7 %; MCH 31.1 pg (25.0-35.0); MCHC 33.6 g/dL (31.0-37.0); MCV 92.5 fL (80.0-100.0); Mean Platelet Volume 8.7; Monocytes # (A) 0.7 k/uL (0-1.0); Monocytes % (A) 8 %; Neutrophils # (A) 7.5 k/uL (1.3-7.7); Neutrophils % (A) 82 %; Platelet Count 152 k/uL (150-450); RBC 4.82 m/uL (4.30-5.90); RDW 13.3 % (11.5-15.5); WBC 9.1 k/uL (3.8-10.6)
[2019-11-19] MEDS ORDERED: SODIUM CHLORIDE 0.9% 1,000 ML IV ONE ×2 (15:39→16:47)
[2019-11-19] MEDS ORDERED: SODIUM CHLORIDE 0.9% 500 ML 500 ML IV ONE (15:39)
[2019-11-19] MEDS ORDERED: SODIUM CHLORIDE 0.9% 1,000 ML IV SCH (15:45)
[2019-11-19 15:54] LABS: Appearance,Urine Turbid (Clear); Bacteria,Urine Occasional /hpf; Bilirubin,Urine Negative (Negative); Blood,Urine Moderate (Negative); Color,Urine Dark Brown; Glucose,Urine (UA) Negative (Negative); Hyaline Casts,Urine 14 /lpf (0-2); Ketones,Urine Negative (Negative); Leukocyte Esterase,Urine Large (Negative); Mucus,Urine Few /hpf; Nitrite,Urine Negative (Negative); PH, Urine 5.5 (5.0-8.0); Protein,Urine 2+ (Negative); RBC,Urine >182 /hpf (0-5); Specific Gravity,Urine 1.019 (1.001-1.035); Squamous Epithelial Cell,Urine 2 /hpf (0-4); WBC,Urine >182 /hpf (0-5)
[2019-11-19] MEDS ORDERED: cefTRIAXone IN SWFI 1,000 MG/10 ML SYRINGE IVP STA (16:47)
[2019-11-19 16:53] VITALS: RESP 16
[2019-11-19] MEDS ORDERED: ACETAMINOPHEN TAB 325 MG TAB PO STA (16:59)
--- NOTE | 2019-11-19 17:39 | CT ---
EXAMINATION TYPE: CT abdomen pelvis wo con DATE OF EXAM: 11/19/2019 COMPARISON: Lung base images 12/20/2016 HISTORY: Abdominal and back pain. Pain with urination. CT DLP: 785.1 mGycm Automated exposure control for dose reduction was used. TECHNIQUE: Helical acquisition of images was performed from the lung bases through the pelvis. FINDINGS: Given the decreased sensitivity for focal visceral and intravascular findings without the u se of IV contrast, the following observations are made. LUNG BASES: No acute processes. A few scattered subcentimeter calcifications at the periphery are red emonstrated, unchanged. These are likely calcified granulomas. LIVER/GB: No significant abnormality is appreciated. PANCREAS: No significant abnormality is seen. SPLEEN: No significant abnormality is seen. ADRENALS: No significant abnormality is seen. KIDNEYS: No significant abnormality is seen. FREE AIR: No free air is visualized RETROPERITONEAL ADENOPATHY: None visualized REPRODUCTIVE ORGANS: No significant abnormality is seen URINARY BLADDER: No significant abnormality is seen. PELVIC ADENOPATHY: None visualized. OSSEOUS STRUCTURES: There are advanced multilevel level lumbar spondylosis changes noted. No focal s keletal lesions. BOWEL: No acute process. IMPRESSION: NO ACUTE PROCESS.
[2019-11-19 19:11] VITALS: BP 142/82; PULSE 72; TEMP 98.6
== END 2019-11-19 19:05 | disposition home or self-care (01) ==
LOC: EC 14:01
DX: N12 Tubulo-interstitial nephritis, not specified as acute or chronic (principal); N30.90 Cystitis, unspecified without hematuria; I10 Essential (primary) hypertension; M10.9 Gout, unspecified; F17.200 Nicotine dependence, unspecified, uncomplicated; Z20.828 Contact with and (suspected) exposure to other viral communicable diseases; Z86.718 Personal history of other venous thrombosis and embolism; Z79.01 Long term (current) use of anticoagulants; Z79.899 Other long term (current) drug therapy; Z88.8 Allergy status to other drugs, medicaments and biological substances
CPT/HCPCS: 99284; 96374; 96361 ×2; 36415; 80053; 83605; 85025; 81001; 87040; 87086; 87077; 87186; 74176; U0003; J0696

== ENCOUNTER → 2023-01-24 | Outpatient (CLI) | payer OTHER ==
--- NOTE | 2023-01-24 13:28 | CT ---
"EXAMINATION TYPE: CT lumbar spine wo con DATE OF EXAM: 01/24/2023 1:11 PM COMPARISON: CT abdomen pelvis dated 11/19/2019 HISTORY: Low back pain radiating down left leg post lifting injury. CT DLP: 768.4 mGycm Automated exposure control for dose reduction was used. Unenhanced CT of the lumbar spine was performed. Bone and soft tissue window settings are submitted as well as coronal and sagittal reconstructions. There is straightening of the lumbar spine with large spurs noted anteriorly involving the lower lumb ar spine and thoracolumbar junction. Diffuse osteopenia. Mild thickening of the left adrenal gland st able. Small hiatal hernia. Assessment spinal canal limited due to resolution artifact. There is ectasia of the abdominal aorta. Measures a maximal dimension of 3 cm. Mild hypertrophic arthropathy of the SI joints. L1-L2: There is posterior disc herniation capped by spur with severe compression of the thecal sac. C annot exclude compression of the distal spinal cord. Bilateral foraminal facet arthropathy. L2-L3: Diffuse disc bulging with spur and facet arthropathy with severe canal stenosis and bilateral foraminal encroachment. L3-L4: Diffuse disc bulging with posterior spurring. Advanced facet arthropathy ligament flavum hyper trophy. Severe canal stenosis and bilateral foraminal protrusion L4-L5: Broad-based central disc protrusion with facet arthropathy and ligamentum flavum hypertrophy. Severe canal stenosis and bilateral foraminal encroachment. L5-S1: Broad-based disc bulging. Degenerative disc disease with posterior spurring. Neural foramina. BE patent. No obvious canal stenosis. IMPRESSION: 1. There is disc herniation with posterior spurring or disc osteophyte complexes most noted at L1-L2 with severe compression of the thecal sac. Mass effect upon the distal spinal cord not excluded corre late clinically. MRI recommended. 2. Disc protrusion or herniations with posterior spondylosis and hypertrophic changes result in sever e additional multilevel canal stenosis and bilateral foraminal encroachment. A [place] critical message alert has been initiated for Mitchell Alvarez DO via the [place] [facility] 0 | Critical Results System on 01/24/2023 1:23 PM. This message alert has been sent to Mitchell yadav DO via the preferences provided by the clinician for the receipt of Radiology Critical Findings. Message ID [id number]."
== END | disposition home or self-care (01) ==
LOC: RADCTMAIN 12:56
PROVIDERS: ATTEND Emergency Medicine
DX: S39.012A Strain of muscle, fascia and tendon of lower back, initial encounter (principal); M51.26 Other intervertebral disc displacement, lumbar region; M47.816 Spondylosis without myelopathy or radiculopathy, lumbar region; M48.061 Spinal stenosis, lumbar region without neurogenic claudication; R20.9 Unspecified disturbances of skin sensation
CPT/HCPCS: 72131

== ENCOUNTER → 2023-02-07 | Outpatient (CLI) | payer OTHER ==
--- NOTE | 2023-02-09 00:23 | MR ---
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 IV Contrast: (None if empty) FINDINGS: Alignment: The lumbar vertebral bodies have preserved heights and straightened alignment. Cord: The conus medullaris and the distal spinal cord appear unremarkable with regards to their signa l intensity and morphology. Cauda equina bunching as described below. Bones/Discs: Degeneration changes throughout the spine with osteophyte formation and Modic endplate c hanges as well as facet joint arthropathy. There is large osteophytes in the spinal canal at L1-L2, L 2-L3 and L3-L4. T12-L1: No evidence of significant spinal canal stenosis or neural foraminal stenosis. L1-L2: Severe spinal canal stenosis secondary to central disc extrusion with inferior and superior mi gration up to 6 mm inferiorly and 13 mm superiorly. There is osteophytes which correlate with prior C T also largely contributing to this spinal canal stenosis. There is bunching of the cauda equina. L2-L3: Severe spinal canal stenosis secondary disc bulge and facet joint arthropathy and superimposed right central and right subarticular disc protrusion with possible underlying extrusion that extends across midline to the left aspect of the spinal canal. Moderate bilateral neural foraminal stenosis. Disc material is felt to be extending inferiorly 5 mm and superiorly 3 mm. There is osteophytes whic h correlate with prior CT also largely contributing to this spinal canal stenosis. There is bunching of the cauda equina. L3-L4: Severe spinal canal stenosis secondary to disc bulge and facet joint arthropathy and superimpo sed right central disc protrusion. Moderate bilateral neural foraminal stenosis. There is osteophytes which correlate with prior CT also largely contributing to this spinal canal stenosis. There is bunc nany of the cauda equina. L4-L5: Disc bulge and facet joint arthropathy result in mild spinal canal and moderate to severe left and moderate right bilateral neural foraminal stenosis. There is a posterior annular fissure. L5-S1: The disc is rounded posterior morphology without significant spinal canal stenosis. Facet join t arthropathy with mild bilateral neural foraminal stenosis. There is a posterior annular fissure. No significant spinal canal or neural foraminal stenosis in the remainder of the visualized levels. Other findings: None. IMPRESSION: 1. L3-L4 severe spinal canal stenosis with disc bulge with right central disc protrusion. 2. L2-L3 severe spinal canal stenosis with disc bulge, osteophytes and large protrusion/extrusion. 3. L1-L2 severe spinal canal stenosis with disc bulge, osteophytes and large protrusion/extrusion. 4. Multilevel disc degeneration changes throughout the spine as described above.
== END | disposition home or self-care (01) ==
LOC: RADMRIMAIN 20:45
PROVIDERS: ATTEND Orthopaedic Surgery Orthopaedic Surgery of the Spine
DX: M47.26 Other spondylosis with radiculopathy, lumbar region (principal); M51.16 Intervertebral disc disorders with radiculopathy, lumbar region; S39.012A Strain of muscle, fascia and tendon of lower back, initial encounter; M45.9 Ankylosing spondylitis of unspecified sites in spine; M25.78 Osteophyte, vertebrae; M48.062 Spinal stenosis, lumbar region with neurogenic claudication; M47.24 Other spondylosis with radiculopathy, thoracic region; M99.73 Connective tissue and disc stenosis of intervertebral foramina of lumbar region; M47.27 Other spondylosis with radiculopathy, lumbosacral region; M62.830 Muscle spasm of back; X58.XXXA Exposure to other specified factors, initial encounter
CPT/HCPCS: 72148

== ENCOUNTER 2023-05-18 12:59 | Emergency (ER) | payer OTHER ==
[2023-05-18 13:12] VITALS: RESP 16; TEMP 98.2
--- NOTE | 2023-05-18 13:31 | ED ---
Chest Pain HPI - General Chief Complaint: Chest Pain Stated Complaint: Chest pain Time Seen by Provider: 05/18/23 13:05 Source: patient, EMS Mode of arrival: ambulatory Limitations: no limitations - History of Present Illness Initial Comments: This patient is a 52-year-old man who presents evaluation of substernal chest pain that started approximately an hour before he got here while he was watching TV. The patient noticed the pain in the substernal area and states that he then felt like something was going to his left arm. He was not able to characterize it well stating it was "just pain." Patient tried taking Mylanta and didn't notice immediate improvement. There were no associated symptoms, but when the pain was in the left arm he called EMS. The patient had aspirin, nitroglycerin, oxygen and states that between all of things pain seemed to go away and he has no symptoms now. MD Complaint: chest pain Onset/Timin -: hour(s) Onset: during rest Pain Location: substernal Pain Radiation: LUE Severity: mild Quality: other (Just pain) Consistency: now resolved Improves With: nitroglycerin, antacids Worsens With: nothing Treatments Prior to Arrival: aspirin, nitroglycerin, other (Antacid) - Related Data Home Medications Medication Instructions Recorded Confirmed Apixaban [Eliquis] 5 mg PO DAILY 11/19/19 05/18/23 Bisoprolol-Hctz 2.5-6.25 mg [Ziac 1 tab PO DAILY 05/18/23 05/18/23 2.5-6.25 MG] Omeprazole Magnesium [PriLOSEC OTC] 20 mg PO DAILY PRN 05/18/23 05/18/23 Allergies Allergy/AdvReac Type Severity Reaction Status Date / Time atenolol AdvReac PASSED OUT Verified 11/19/19 18:22 Review of Systems ROS Statement: Those systems with pertinent positive or pertinent negative responses have been documented in the HPI. ROS Other: All systems not noted in ROS Statement are negative. Constitutional: Denies: fever, chills, weakness Respiratory: Denies: cough, dyspnea Cardiovascular: Reports: chest pain. Denies: palpitations, dyspnea on exertion, orthopnea, edema, syncope Gastrointestinal: Denies: abdominal pain, nausea, vomiting, diarrhea Genitourinary: Denies: dysuria, hematuria Musculoskeletal: Denies: back pain Skin: Denies: rash Neurological: Denies: headache, weakness, numbness EKG Findings - EKG Comments: EKG Findings:: Possible old septal infarct - EKG Results: EKG: interpreted by NESS, sinus rhythm, normal axis EKG shows: bradycardia (Rate 54 bpm) - Blocks, [place], Hypertrophy, ST Abn: AV and intraventricular conduction: right bundle branch block (fixed/intermittent, complete/incomplete) (Incomplete right bundle branch) Chamber hypertrophy or enlargement: only voltage criteria for left ventricular hypertrophy Past Medical History Past Medical History: Hypertension Additional Past Medical History / Comment(s): gout History of Any Multi-Drug Resistant Organisms: None Reported Past Surgical History: No Surgical Hx Reported Past Psychological History: Anxiety Smoking Status: Current every day smoker Past Alcohol Use History: Occasional Past Drug Use History: None Reported General Exam Limitations: no limitations General appearance: alert, in no apparent distress Head exam: Present: atraumatic, normocephalic Eye exam: Present: normal appearance. Absent: scleral icterus, conjunctival injection Neck exam: Present: normal inspection Respiratory exam: Present: normal lung sounds bilaterally. Absent: respiratory distress, wheezes, rales, rhonchi, stridor Cardiovascular Exam: Present: regular rate, normal rhythm, normal heart sounds. Absent: systolic murmur, diastolic murmur, rubs, gallop GI/Abdominal exam: Present: soft. Absent: distended, tenderness, guarding, rebound, rigid, mass Extremities exam: Present: normal inspection, normal capillary refill. Absent: pedal edema, calf tenderness Back exam: Present: normal inspection. Absent: CVA tenderness (R), CVA tender ness (L) Neurological exam: Present: alert Skin exam: Present: warm, dry, intact, normal color. Absent: rash Course Vital Signs 05/18/23 05/18/23 05/18/23 13:01 14:09 17:00 Temperature 98.2 F Pulse Rate 54 L 52 L 52 L Respiratory 16 16 16 Rate Blood Pressure 153/105 164/101 163/116 O2 Sat by Pulse 98 100 100 Oximetry Chest Pain MDM - MDM The patient had chest x-ray that I interpreted to show no acute infiltrate, pneumothorax, congestive heart failure Patient had CT of the chest which I interpreted as being negative for acute pulmonary embolism. Patient is 52-year-old man with chest pain though that did resolve and he has no symptoms now. My recommendation based on the risk factors and on the character the pain is that he stay to have repeat cardiac enzymes and telemetry monitoring as well as cardiology consultation. We discussed the rationale for this and the patient is declining. He states that he will follow-up as an outpatient. He will return should any symptoms recur. Was pt. sent in by a medical professional or institution (, [facility], [employer] CUTTER HELPER, urgent care, hospital, or halfway...) When possible be specific @ -[No] Did you speak to anyone other than the patient for history (EMS, parent, family, police, friend...)? What history was obtained from this source @ -[No] Did you review nursing and triage notes (agree or disagree)? Why? @ -[I reviewed and agree with nursing and triage notes] Were old charts reviewed (outside hosp., previous admission, EMS record, old EKG, old radiological studies, urgent care reports/EKG's, halfway records)? Report findings @ -[No old charts were reviewed] Differential Diagnosis (chest pain, altered mental status, abdominal pain women, abdominal pain men, vaginal bleeding, weakness, fever, dyspnea, syncope, headache, dizziness, GI bleed, back pain, seizure, CVA, palpatations, mental health, musculoskeletal)? @ -[Differential Chest Pain: Stable Angina, Unstable Angina, STEMI, NSTEMI Aortic Dissection, Pneumothorax, Musculoskeletal, Esophageal Spasm GERD, Cholecystitis, Pancreatitis, Zoster, this is not meant to be an all-inclusive list. EKG interpreted by me (3pts min.). @ -[I interpreted as above] X-rays interpreted by me (1pt min.). @ -[I interpreted as above CT interpreted by me (1pt min.). @ -[I interpreted as above U/S interpreted by me (1pt. min.). @ -[None done] What testing was considered but not performed or refused? (CT, X-rays, U/S, labs)? Why? @ -[None] What meds were considered but not given or refused? Why? @ -[None] Did you discuss the management of the patient with other professionals (professionals i.e. , [facility], [employer] HELPER, lab, RT, psych nurse, social media sr strategy manager, bead stringer, teacher, adult parole officer, child support case officer)? Give summary @ -[No] Was smoking cessation discussed for >3mins.? @ -[No] Was critical care preformed (if so, how long)? @ -[No] Were there social determinants of health that impacted care today? How? (Homelessness, low income, unemployed, alcoholism, drug addiction, transportation, low edu. Level, literacy, decrease access to med. care, fpc, rehab)? @ -[No] Was there de-escalation of care discussed even if they declined (Discuss DNR or withdrawal of care, Hospice)? DNR status @ -[No] What co-morbidities impacted this encounter? (DM, HTN, Smoking, COPD, CAD, Cancer, CVA, ARF, Chemo, Hep., AIDS, mental health diagnosis, sleep apnea, morbid obesity)? @ -[None] Was patient admitted / discharged? Hospital course, mention meds given and route, prescriptions, significant lab abnormalities, going to OR and other pertinent info. @ -[See above Undiagnosed new problem with uncertain prognosis? @ -[No] Drug Therapy requiring intensive monitoring for toxicity (Heparin, Nitro, Insulin, Cardizem)? @ -[No] Were any procedures done? @ -[No] Diagnosis/symptom? @ -[Acute chest pain Acute, or Chronic, or Acute on Chronic? @ -[Acute Uncomplicated (without systemic symptoms) or Complicated (systemic symptoms)? @ -[Uncomplicated Side effects of treatment? @ -[No] Exacerbation, Progression, or Severe Exacerbation? @ -[No] Poses a threat to life or bodily function? How? (Chest pain, [place], [place], pneumonia, PE, COPD, DKA, ARF, appy, cholecystitis, CVA, Diverticulitis, Homicidal, Suicidal, threat to staff... and all critical care pts) @ -[This will require further evaluation, but there definitely is risk that the chest pain is of cardiac etiology given the patient's risk factors Disposition Clinical Impression: Chest pain Disposition: HOME SELF-CARE Condition: Good Instructions (If sedation given, give patient instructions): Chest Pain (ED) Is patient prescribed a controlled substance at d/c from ED?: No Referrals: Boni Monet MD [Primary Care Provider] - 1-2 days Zach Fernandez MD [Medical Doctor] - 1-2 days
[2023-05-18 14:03] LABS: Basophils % (A) 0 %; Eosinophils % (A) 0 %; HCT 43.8 % (39.0-53.0); HGB 15.4 gm/dL (13.0-17.5); Lymphocytes # (A) 1.1 k/uL (1.0-4.8); Lymphocytes % (A) 9 %; MCH 35.1 pg (25.0-35.0); MCHC 35.1 g/dL (31.0-37.0); MCV 99.9 fL (80.0-100.0); Mean Platelet Volume 8.6; Monocytes # (A) 0.8 k/uL (0-1.0); Monocytes % (A) 7 %; Neutrophils # (A) 10.1 k/uL (1.3-7.7); Neutrophils % (A) 83 %; Platelet Count 168 k/uL (150-450); RBC 4.38 m/uL (4.30-5.90); RDW 11.9 % (11.5-15.5); WBC 12.2 k/uL (3.8-10.6)
--- NOTE | 2023-05-18 14:07 | XR ---
EXAMINATION TYPE: XR chest 2V DATE OF EXAM: 05/18/2023 COMPARISON: 01/28/2018 INDICATION: Chest pain TECHNIQUE: Frontal and lateral views of the chest are obtained. FINDINGS: The heart size is normal. The pulmonary vasculature is normal. The lungs are clear. Some hyperinflation is present. IMPRESSION: 1. No acute pulmonary process.
[2023-05-18 14:15] LABS: ALT 66 U/L (4-49); AST 53 U/L (17-59); African American GFR (CKD) >90 (>60 ml/min/1.73 sqM); Albumin 4.1 g/dL (3.5-5.0); Alkaline Phosphatase 93 U/L (38-126); Anion Gap 9 mmol/L; Blood Urea Nitrogen 25 mg/dL (9-20); Calcium 9.2 mg/dL (8.4-10.2); Carbon Dioxide 23 mmol/L (22-30); Chloride 111 mmol/L (98-107); Glucose 146 mg/dL (74-99); Non-African American GFR(CKD) >90 (>60 ml/min/1.73 sqM); Potassium 3.7 mmol/L (3.5-5.1); Sodium 143 mmol/L (137-145); Total Bilirubin 0.7 mg/dL (0.2-1.3); Total Protein 6.9 g/dL (6.3-8.2)
[2023-05-18 14:22] LABS: Partial Thromboplastin Time 23.1 sec (22.0-30.0); Prothrombin Time 10.5 sec (10.0-12.5)
[2023-05-18 14:23] VITALS: PULSE 52
--- NOTE | 2023-05-18 15:08 | CT ---
CTA CHEST EXAMINATION TYPE: CT angio chest DATE OF EXAM: 05/18/2023 INDICATION: CP. R/O PE. CT DLP: 395.3 mGycm, Automated exposure control for dose reduction was used. CONTRAST: Patient injected with 100ml mL of Isovue 370. COMPARISON: 12/20/2016 TECHNIQUE: CT of the chest is performed on a spiral scan at 2 mm thick sections. Study is performed with intravenous contrast timed for evaluation for pulmonary embolism. This will limit additional po rtions of the evaluation. 3-D MIP images reconstructed by the technologist are reviewed on the compu ter in the coronal and sagittal planes. FINDINGS: No persistent filling defects are evident to suggest an acute pulmonary embolism. No mediastinal or hilar adenopathy enlarged by CT criteria is evident. The ascending aorta diameter at the level of the main pulmonary artery is 3.2 cm. The main pulmonary artery diameter at the bifurcation is 2.6 cm. Calcified lymphadenopathy is at the right infrahilar region. Calcified granulomas in the posterior lateral right lung present previously, image 97, 88, 73 and 49 right lung. Punctate calcifications in the left lower lobe, image 96. Limited CT sections were through the upper abdomen. Upper abdomen appears unremarkable. IMPRESSION: 1. No acute pulmonary embolism.
[2023-05-18 17:10] VITALS: BP 163/116
== END 2023-05-18 17:18 | disposition home or self-care (01) ==
LOC: EC 12:59
DX: R07.2 Precordial pain (principal); R00.1 Bradycardia, unspecified; I25.2 Old myocardial infarction; I10 Essential (primary) hypertension; F17.200 Nicotine dependence, unspecified, uncomplicated; Z86.59 Personal history of other mental and behavioral disorders; Z88.8 Allergy status to other drugs, medicaments and biological substances
CPT/HCPCS: 36415; 93005; 85379; 80053; 83735; 84484; 85025; 85610; 85730; 71046; 71275; 99285; Q9967

== ENCOUNTER 2023-08-09 09:51 | Observation (INO) | payer BC, OTHER ==
[2023-08-09 11:20] LABS: Basophils % (A) 0 %; Eosinophils # (A) 0.1 k/uL (0-0.7); Eosinophils % (A) 1 %; HCT 50.1 % (39.0-53.0); HGB 16.7 gm/dL (13.0-17.5); Lymphocytes % (A) 12 %; MCH 34.2 pg (25.0-35.0); MCHC 33.3 g/dL (31.0-37.0); MCV 102.6 fL (80.0-100.0); Macrocytosis Slight; Mean Platelet Volume 8.8; Monocytes # (A) 0.6 k/uL (0-1.0); Monocytes % (A) 8 %; Neutrophils # (A) 6.2 k/uL (1.3-7.7); Neutrophils % (A) 77 %; Platelet Count 147 k/uL (150-450); RBC 4.89 m/uL (4.30-5.90); RDW 12.4 % (11.5-15.5); WBC 8.1 k/uL (3.8-10.6)
[2023-08-09 11:32] LABS: ALT 45 U/L (4-49); AST 41 U/L (17-59); African American GFR (CKD) >90 (>60 ml/min/1.73 sqM); Alkaline Phosphatase 126 U/L (38-126); Anion Gap 7 mmol/L; Blood Urea Nitrogen 14 mg/dL (9-20); Carbon Dioxide 29 mmol/L (22-30); Chloride 107 mmol/L (98-107); Glucose 119 mg/dL (74-99); Magnesium 1.6 mg/dL (1.6-2.3); Non-African American GFR(CKD) >90 (>60 ml/min/1.73 sqM); Potassium 3.9 mmol/L (3.5-5.1); Sodium 143 mmol/L (137-145)
[2023-08-09 11:37] LABS: INR 0.9 (<1.2); Partial Thromboplastin Time 24.6 sec (22.0-30.0); Prothrombin Time 10.4 sec (10.0-12.5)
--- NOTE | 2023-08-09 11:42 | XR ---
EXAMINATION TYPE: XR chest 2V DATE OF EXAM: 08/09/2023 10:45 AM CLINICAL INDICATION:Male, 53 years old with history of Chest Pain; COMPARISON: Chest radiographs from 05/18/2023 TECHNIQUE: XR chest 2V Frontal and lateral views of the chest. FINDINGS: Lungs/Pleura: There is no evidence of pleural effusion, focal consolidation, or pneumothorax. Pulmonary vascularity: Unremarkable. Heart/mediastinum: Cardiomediastinal silhouette is unremarkable. Musculoskeletal: No acute osseous pathology. Other findings: None IMPRESSION: No acute cardiopulmonary disease/process.
[2023-08-09] MEDS ORDERED: HEPARIN SODIUM 1,000 UN/ML (10ML VL) IV PRN (12:58)
--- NOTE | 2023-08-09 13:00 | CT ---
EXAMINATION TYPE: CT angio chest DATE OF EXAM: 08/09/2023 COMPARISON: 05/18/2023 HISTORY: 53-year-old male Right sided chest pain, Elevated D-dimer TECHNIQUE: Contiguous axial scanning of the chest after the administration of 100 ml mL of Isovue 370 . Coronal/sagittal MIP reconstructions performed. CT DLP: 339.2mGycm. Automatic exposure control utilized for a dose reduction. FINDINGS: The heart is normal size without pericardial effusion. No flattening of the interventricular septum o r reflux of contrast into the hepatic veins. Aorta normal caliber with conventional arch vessel branching anatomy. Calcified right hilar lymph nodes. No thoracic lymph adenopathy by CT size criteria. Satisfactory opacification of the pulmonary arterial system with small distal segmental and subsegmen sharifa branch emboli to the right lateral and posterior basilar lower lobe, for example, axial image 78 through 87. No large central embolus is seen. Some patchy subpleural groundglass change is developing in the corresponding right lung base. A few scattered small calcified granulomas. No pleural effusion. Tiny hiatal hernia. Moderate to severe fatty infiltration of the liver. Benign calcified granulomas w ithin the spleen. Bones: [facility] throughout the visualized thoracic spine. IMPRESSION: 1. Exam positive for small peripheral pulmonary emboli to the basilar right lower lobe (distal segmen sharifa and subsegmental branches of the posterior and lateral basilar RLL). No right heart strain or la rge central embolus. 2. Some developing subpleural groundglass in the corresponding right lung base may reflect early pulm onary infarct. 3. Evidence of prior granulomatous disease. 4. Tiny hiatal hernia and hepatic steatosis. Critical findings called to Dr. Estevez in the ER at 12:57 PM.
[2023-08-09] MEDS: HEPARIN SODIUM 1,000 UN/ML (10ML VL) IV ONE (13:16)
[2023-08-09] MEDS: HEPARIN SOD,PORK IN 0.45% NACL 25,000 UNIT in 0.45% NACL 1 250ML.BAG IV SCH (13:44)
--- NOTE | 2023-08-09 13:56 | ED ---
General Adult HPI - General Chief complaint: Recheck/Abnormal Lab/Rx Stated complaint: AUSTYN,R side pain Time Seen by Provider: 08/09/23 10:27 Source: patient, RN notes reviewed, old records reviewed Mode of arrival: ambulatory Limitations: no limitations - History of Present Illness Initial comments: 53-year-old male presenting with right-sided chest pain which has been present throughout the day today. Worse with deep inspiration. No injury. Patient does report productive cough with yellow sputum. No fever. Patient has history of DVT and is prescribed Eliquis but he has been out of this medication for the past 1 week. - Related Data Home Medications Medication Instructions Recorded Confirmed Apixaban [Eliquis] 5 mg PO DAILY 11/19/19 08/09/23 Bisoprolol-Hctz 2.5-6.25 mg [Ziac 1 tab PO DAILY 05/18/23 08/09/23 2.5-6.25 MG] Omeprazole Magnesium [PriLOSEC OTC] 20 mg PO DAILY PRN 05/18/23 08/09/23 Multivitamins, Thera [Multivitamin 1 tab PO DAILY 08/09/23 08/09/23 (formulary)] Allergies Allergy/AdvReac Type Severity Reaction Status Date / Time atenolol AdvReac PASSED OUT Verified 08/09/23 12:38 Review of Systems ROS Statement: Those systems with pertinent positive or pertinent negative responses have been documented in the HPI. ROS Other: All systems not noted in ROS Statement are negative. Past Medical History Past Medical History: Hypertension Additional Past Medical History / Comment(s): gout History of Any Multi-Drug Resistant Organisms: None Reported Past Surgical History: No Surgical Hx Reported Past Psychological History: Anxiety Smoking Status: Current every day smoker Past Alcohol Use History: Occasional Past Drug Use History: None Reported General Exam Limitations: no limitations General appearance: alert, in no apparent distress Head exam: Present: atraumatic, normocephalic Eye exam: Present: normal appearance, PERRL ENT exam: Present: normal exam Neck exam: Present: normal inspection. Absent: tenderness, meningismus Respiratory exam: Present: normal lung sounds bilaterally. Absent: respiratory distress, wheezes Cardiovascular Exam: Present: regular rate, normal rhythm GI/Abdominal exam: Present: soft. Absent: distended, tenderness Extremities exam: Present: normal inspection, normal capillary refill Neurological exam: Present: alert, oriented X3, CN II-XII intact, normal gait. Absent: motor sensory deficit Psychiatric exam: Present: normal affect, normal mood Skin exam: Present: warm, dry, intact. Absent: cyanosis, diaphoretic Course Vital Signs 08/09/23 10:06 Temperature 98 F Pulse Rate 74 Respiratory 18 Rate Blood Pressure 152/90 O2 Sat by Pulse 99 Oximetry Medical Decision Making - Medical Decision Making Was pt. sent in by a medical professional or institution (CANDIDA Yap, RN NEONATAL, urgent care, hospital, or shelter...) When possible be specific @ -No Did you speak to anyone other than the patient for history (EMS, parent, family, police, friend...)? What history was obtained from this source @ -No Did you review nursing and triage notes (agree or disagree)? Why? @ -I reviewed and agree with nursing and triage notes Were old charts reviewed (outside hosp., previous admission, EMS record, old EKG, old radiological studies, urgent care reports/EKG's, shelter records)? Report findings @ -No old charts were reviewed Differential Diagnosis (chest pain, altered mental status, abdominal pain women, abdominal pain men, vaginal bleeding, weakness, fever, dyspnea, syncope, headache, dizziness, GI bleed, back pain, seizure, CVA, palpatations, mental health, musculoskeletal)? @ -Not applicable EKG interpreted by me (3pts min.). @Sinus bradycardia incomplete right bundle branch block, rate of 58, CT interval 160, QRS duration 102, QTc [address] segment elevation. X-rays interpreted by me (1pt min.). @ -Chest x-ray negative for acute cardiopulmonary findings. CT interpreted by me (1pt min.). @CT angiogram showing pulmonary embolism without right heart strain, concern for pulmonary infarction. U/S interpreted by me (1pt. min.). @ -None done What testing was considered but not performed or refused? (CT, X-rays, U/S, labs)? Why? @ -None What meds were considered but not given or refused? Why? @ -None Did you discuss the management of the patient with other professionals (professionals i.e. CANDIDA Yap, RN NEONATAL, lab, RT, psych nurse, administrator social welfare, harmonic analyst, teacher, targeting acquisition officer, casework specialist)? Give summary @ -EMH Was smoking cessation discussed for >3mins.? @ -No Was critical care preformed (if so, how long)? @ -Yes, 35 minutes Were there social determinants of health that impacted care today? How? (Homelessness, low income, unemployed, alcoholism, drug addiction, transportation, low edu. Level, literacy, decrease access to med. care, residential, rehab)? @ -No Was there de-escalation of care discussed even if they declined (Discuss DNR or withdrawal of care, Hospice)? DNR status @ -No What co-morbidities impacted this encounter? (DM, HTN, Smoking, COPD, CAD, Cancer, CVA, ARF, Chemo, Hep., AIDS, mental health diagnosis, sleep apnea, morbid obesity)? @ -DVT Was patient admitted / discharged? Hospital course, mention meds given and route, prescriptions, significant lab abnormalities, going to OR and other pertinent info. @ -53-year-old male history of DVT with pleuritic right-sided chest pain. D- dimer is positive. CT angiogram confirms pulmonary embolism with concern for developing infarction. Patient started on heparin. There is no signs of right heart strain, EKG is sinus bradycardia. Troponin is negative. Patient admitted to internal medicine with pulmonology on consult. Undiagnosed new problem with uncertain prognosis? @ -No Drug Therapy requiring intensive monitoring for toxicity (Heparin, Nitro, I nsulin, Cardizem)? @ -No Were any procedures done? @ -No Diagnosis/symptom? @Pulmonary embolism Acute, or Chronic, or Acute on Chronic? @ -Acute Uncomplicated (without systemic symptoms) or Complicated (systemic symptoms)? @ -Complicated Side effects of treatment? @ -No Exacerbation, Progression, or Severe Exacerbation? @ -No Poses a threat to life or bodily function? How? (Chest pain, [place], [place], pneumonia, PE, COPD, DKA, ARF, appy, cholecystitis, CVA, Diverticulitis, Homicidal, Suicidal, threat to staff... and all critical care pts) @Yes, pulmonary embolism - Lab Data Result diagrams: 08/09/23 10:49 08/09/23 10:49 Lab Results 08/09/23 08/09/23 08/09/23 Range/Units 10:49 10:49 10:49 WBC 8.1 (3.8-10.6) k/uL RBC 4.89 (4.30-5.90) m/uL Hgb 16.7 (13.0-17.5) gm/dL Hct 50.1 (39.0-53.0) % MCV 102.6 H (80.0-100.0) fL MCH 34.2 (25.0-35.0) pg MCHC 33.3 (31.0-37.0) g/dL RDW 12.4 (11.5-15.5) % Plt Count 147 L (150-450) k/uL MPV 8.8 Neutrophils % 77 % Lymphocytes % 12 % Monocytes % 8 % Eosinophils % 1 % Basophils % 0 % Neutrophils # 6.2 (1.3-7.7) k/uL Lymphocytes # 1.0 (1.0-4.8) k/uL Monocytes # 0.6 (0-1.0) k/uL Eosinophils # 0.1 (0-0.7) k/uL Basophils # 0.0 (0-0.2) k/uL Macrocytosis Slight PT 10.4 (10.0-12.5) sec INR 0.9 (<1.2) APTT 24.6 (22.0-30.0) sec D-Dimer 2.61 H (<0.60) mg/L FEU Sodium 143 (137-145) mmol/L Potassium 3.9 (3.5-5.1) mmol/L Chloride 107 (98-107) mmol/L Carbon Dioxide 29 (22-30) mmol/L Anion Gap 7 mmol/L BUN 14 (9-20) mg/dL Creatinine 0.72 (0.66-1.25) mg/dL Est GFR (CKD-EPI)AfAm >90 (>60 ml/min/1.73 sqM) Est GFR (CKD-EPI)NonAf >90 (>60 ml/min/1.73 sqM) Glucose 119 H (74-99) mg/dL Calcium 9.0 (8.4-10.2) mg/dL Magnesium 1.6 (1.6-2.3) mg/dL Total Bilirubin 1.0 (0.2-1.3) mg/dL AST 41 (17-59) U/L ALT 45 (4-49) U/L Alkaline Phosphatase 126 (38-126) U/L Troponin I (0.000-0.034) ng/mL Total Protein 7.0 (6.3-8.2) g/dL Albumin 4.0 (3.5-5.0) g/dL 08/09/23 Range/Units 10:49 WBC (3.8-10.6) k/uL RBC (4.30-5.90) m/uL Hgb (13.0-17.5) gm/dL Hct (39.0-53.0) % MCV (80.0-100.0) fL MCH (25.0-35.0) pg MCHC (31.0-37.0) g/dL RDW (11.5-15.5) % Plt Count (150-450) k/uL MPV Neutrophils % % Lymphocytes % % Monocytes % % Eosinophils % % Basophils % % Neutrophils # (1.3-7.7) k/uL Lymphocytes # (1.0-4.8) k/uL Monocytes # (0-1.0) k/uL Eosinophils # (0-0.7) k/uL Basophils # (0-0.2) k/uL Macrocytosis PT (10.0-12.5) sec INR (<1.2) APTT (22.0-30.0) sec D-Dimer (<0.60) mg/L FEU Sodium (137-145) mmol/L Potassium (3.5-5.1) mmol/L Chloride (98-107) mmol/L Carbon Dioxide (22-30) mmol/L Anion Gap mmol/L BUN (9-20) mg/dL Creatinine (0.66-1.25) mg/dL Est GFR (CKD-EPI)AfAm (>60 ml/min/1.73 sqM) Est GFR (CKD-EPI)NonAf (>60 ml/min/1.73 sqM) Glucose (74-99) mg/dL Calcium (8.4-10.2) mg/dL Magnesium (1.6-2.3) mg/dL Total Bilirubin (0.2-1.3) mg/dL AST (17-59) U/L ALT (4-49) U/L Alkaline Phosphatase (38-126) U/L Troponin I <0.012 (0.000-0.034) ng/mL Total Protein (6.3-8.2) g/dL Albumin (3.5-5.0) g/dL Critical Care Time Critical Care Time: Yes Total Critical Care Time: 35 Disposition Clinical Impression: Pulmonary embolism, Pulmonary embolism and infarction Disposition: ADMITTED IP TO THIS HOSP Condition: Stable Is patient prescribed a controlled substance at d/c from ED?: No Referrals: Boni Monet MD [Primary Care Provider] - 1-2 days Time of Disposition: 13:58
[2023-08-09] MEDS ORDERED: NALOXONE 0.4 MG/ML 1 ML VIAL IV PRN (13:58)
[2023-08-09] MEDS ORDERED: IBUPROFEN 400 MG TAB PO PRN (13:58)
[2023-08-09] MEDS ORDERED: ACETAMINOPHEN TAB 325 MG TAB PO PRN (13:58)
[2023-08-09] MEDS ORDERED: PANTOPRAZOLE 40 MG TABLET PO PRN (15:19)
[2023-08-09] MEDS ORDERED: HYDROmorphone 0.5 MG/0.5 ML SYRINGE IVP PRN (15:20)
[2023-08-09] MEDS ORDERED: ALPRAZolam 0.25 MG TAB PO PRN (15:20)
[2023-08-09] MEDS: NICOTINE 14MG/24HR PATCH TRANSDERM SCH (15:31)
--- NOTE | 2023-08-09 17:23 | P.CNPUL ---
History of Present Illness Consult date: 08/09/23 Requesting physician: Kin Ritchie Reason for consult: chest pain, pulmonary embolism Chief complaint: Right-sided chest pain History of present illness: This is a very pleasant 53-year-old male patient with a known history of hypertension, gastroesophageal reflux disease and a right lower extremity DVT approximately 1 year ago and had been maintained on Eliquis. Recently the patient had been having chronic back pain issues and was taken off his Eliquis for 1 week for spinal injections per anesthesia. He was to participate in physical therapy today however he developed right-sided chest pain with pain on inhalation and presented here to the emergency room. He is still off his Eliquis that he was going to be picking up today. Unfortunately he is found to have a small peripheral pulmonary emboli to the basilar right lower lobe. No evidence of right heart strain or large central embolus. There is some developing subpleural groundglass in the right lung base reflecting early pulm onary infarct. Evidence of prior granulomatous disease. Chest x-ray revealed no acute pulmonary process. White count 8.1. Hemoglobin 16.7. Platelets 147. D- dimer 2.61. Sodium 143. Potassium 3.9. Bicarb 29. BUN 14. Creatinine 0.72. Glucose 119. He has been initiated on a heparin drip. He is seen today in the emergency department. Sitting up in a stretcher. Awake and alert in no acute distress. He is maintaining good O2 saturations in the 90s on room air. He is afebrile. Hemodynamically stable. He denies any worsening shortness of breath cough or congestion. No hemoptysis. Review of Systems REVIEW OF SYSTEMS: CONSTITUTIONAL: Denies any recent significant weight loss or weight gain. EYES: Denies change in vision. EARS, NOSE, MOUTH, THROAT: Denies headaches, denies sore throat. CARDIOVASCULAR: Positive for right-sided chest pain, no palpitations or syncopal episodes. RESPIRATORY: Denies shortness of breath, cough, congestion or hemoptysis. GASTROINTESTINAL: Denies change in appetite, denies abdominal pain GENITOURINARY: Denies hematuria, denies infections. MUSKULOSKELETAL: Denies pain, denies swelling. INTEGUMENTARY: Denies rash, denies eczema. NEUROLOGICAL: Denies recent memory loss, no recent seizure activity. PSYCHIATRIC: Denies anxiety, denies depression. HEMATOLOGIC/LYMPHATIC: Denies anemia, denies enlarged lymph nodes. Past Medical History Past Medical History: Hypertension Additional Past Medical History / Comment(s): gout History of Any Multi-Drug Resistant Organisms: None Reported Past Surgical History: No Surgical Hx Reported Past Psychological History: Anxiety Smoking Status: Current every day smoker Past Alcohol Use History: Occasional Past Drug Use History: None Reported Medications and Allergies Home Medications Medication Instructions Recorded Confirmed Type Apixaban [Eliquis] 5 mg PO DAILY 11/19/19 08/09/23 History Bisoprolol-Hctz 2.5-6.25 mg [Ziac 1 tab PO DAILY 05/18/23 08/09/23 History 2.5-6.25 MG] Omeprazole Magnesium [PriLOSEC OTC] 20 mg PO DAILY PRN 05/18/23 08/09/23 History Multivitamins, Thera [Multivitamin 1 tab PO DAILY 08/09/23 08/09/23 History (formulary)] Allergies Allergy/AdvReac Type Severity Reaction Status Date / Time atenolol AdvReac PASSED OUT Verified 08/09/23 12:38 Physical Exam Vitals: Vital Signs Temp Pulse Resp BP Pulse Ox 08/09/23 10:06 98 F 74 18 152/90 99 Intake and Output 08/09/23 08/09/23 08/09/23 06:59 14:59 22:59 Other: Weight 89.358 kg GENERAL EXAM: Alert, pleasant 53-year-old male, on room air, fairly comfortable in no apparent distress. HEAD: Normocephalic. EYES: Normal reaction of pupils, equal size. NOSE: Clear with pink turbinates. THROAT: No erythema or exudates. NECK: No masses, no JVD. CHEST: No chest wall deformity. LUNGS: Equal air entry with crackles in the right posterior base. CVS: S1 and S2 normal with no audible murmur, regular rhythm. ABDOMEN: No hepatosplenomegaly, normal bowel sounds, no guarding or rigidity. SPINE: No scoliosis or deformity SKIN: No rashes CENTRAL NERVOUS SYSTEM: No focal deficits, tone is normal in all 4 extremities. EXTREMITIES: There is no peripheral edema. No clubbing, no cyanosis. Per ipheral pulses are intact. Results - Laboratory Findings CBC and BMP: 08/09/23 10:49 08/09/23 10:49 PT/INR, D-dimer PT 10.4 sec (10.0-12.5) 08/09/23 10:49 INR 0.9 (<1.2) 08/09/23 10:49 D-Dimer 2.61 mg/L FEU (<0.60) H 08/09/23 10:49 Abnormal lab findings: Abnormal Labs 08/09/23 08/09/23 08/09/23 10:49 10:49 10:49 MCV 102.6 H Plt Count 147 L D-Dimer 2.61 H Glucose 119 H - Diagnostic Findings Chest x-ray: image reviewed CT scan - chest: image reviewed Assessment and Plan Assessment: Right-sided chest pain in a patient found to have right-sided pulmonary emboli with signs of early pulmonary infarct. No evidence of right heart strain. Stable and on room air. Chronic back pain with recent spinal injection and had been off his Eliquis for 1 week History of right lower extremity DVT had been maintained on Eliquis Hypertension Gastroesophageal reflux disease Chronic tobacco dependence Plan: The patient was seen and evaluated CAT scan, chest x-ray, labs and medications reviewed Continue heparin drip for now Will resume Eliquis tomorrow Will require lifelong anticoagulation Currently stable and on room air Educated regarding the importance of smoking cessation NicoDerm patch will be offered We will continue to follow and make further recommendations based on his clinical status I have personally seen and examined the patient, performed the documentation and the assessment and plan as written. Number of minutes spent on the visit: 20.
--- NOTE | 2023-08-09 22:29 | HP ---
HISTORY AND PHYSICAL CHIEF COMPLAINT: Right-sided chest pain, shortness of breath. HISTORY OF PRESENT ILLNESS: This is a 53-year-old gentleman with a past medical history of multiple medical problems including hypertension, gout, possibly on blood thinner which the patient is not taking for 1 week. The patient is complaining of shortness of breath and right- sided chest pains, increasing aspiration, D-dimer was elevated. CT angio chest for pulmonary embolism on the right lower lobe. The patient was admitted for further evaluation and treatment. A pulmonary infarct was also suspected. PAST MEDICAL HISTORY: History of hypertension, gout, rest of the history and rest of the chart is also reviewed. HOME MEDICATIONS: Reviewed include Prilosec and Eliquis, dose and rest of medications noted. ALLERGIES: Atenolol. FAMILY HISTORY: No history of heart disease or strokes in the family. SOCIAL HISTORY: Smoking. REVIEW OF SYSTEMS: A 14-point review is negative except as mentioned earlier. PHYSICAL EXAMINATION: VITAL SIGNS: Pulse is 74, blood pressure 150/90, respirations 18. HEENT: Conjunctivae normal. NECK: No jugular venous distention. CARDIOVASCULAR: S1, S2. RESPIRATIONS: Diminished at the bases, few scattered rhonchi. No crackles. ABDOMEN: Soft. LEGS: No edema. NERVOUS SYSTEM: Nonfocal. SKIN: No ulcer, rash, bleeding. JOINTS: No active deforming arthropathy. LABORATORY DATA: D-dimer 2.6, CT angio noted. ASSESSMENT: 1. Right-sided chest pain, shortness of breath, possible acute pulmonary embolism. 2. Possibly early pulmonary infarct. 3. Hypertension. 4. Gout. 5. Anxiety. 6. History of nicotine dependence. RECOMMENDATIONS AND DISCUSSION: This 53-year-old gentleman presented with multiple complex medical history, will monitor the patient closely. Continue with IV heparin. Symptomatic treatment and also consult Pulmonary. Once the patient is stabilized, the patient will be discharged home on Eliquis. Guarded prognosis. Further recommendations to follow. See orders for details. Repeat labs will be ordered for tomorrow. MMODL / IJN: [id number] /
[2023-08-10 04:46] LABS: Basophils % (A) 0 %; Eosinophils # (A) 0.1 k/uL (0-0.7); Eosinophils % (A) 3 %; HCT 43.7 % (39.0-53.0); Lymphocytes # (A) 0.9 k/uL (1.0-4.8); Lymphocytes % (A) 16 %; MCH 34.8 pg (25.0-35.0); MCHC 34.4 g/dL (31.0-37.0); MCV 101.1 fL (80.0-100.0); Mean Platelet Volume 9.4; Monocytes # (A) 0.5 k/uL (0-1.0); Monocytes % (A) 9 %; Neutrophils # (A) 3.8 k/uL (1.3-7.7); Neutrophils % (A) 70 %; Platelet Count 107 k/uL (150-450); RBC 4.32 m/uL (4.30-5.90); RDW 12.7 % (11.5-15.5); WBC 5.4 k/uL (3.8-10.6)
[2023-08-10 05:06] LABS: African American GFR (CKD) >90 (>60 ml/min/1.73 sqM); Anion Gap 7 mmol/L; Blood Urea Nitrogen 13 mg/dL (9-20); Calcium 7.9 mg/dL (8.4-10.2); Carbon Dioxide 23 mmol/L (22-30); Chloride 107 mmol/L (98-107); Glucose 89 mg/dL (74-99); Non-African American GFR(CKD) >90 (>60 ml/min/1.73 sqM); Sodium 137 mmol/L (137-145)
[2023-08-10] MEDS ORDERED: Potassium Replacement Protocol 1 EACH MISC MISCELLANE PRN (06:57)
[2023-08-10] MEDS: Apixaban Initiation Dose--VTE 5 MG TAB PO SCH (08:20)
[2023-08-10] MEDS: POTASSIUM CHLORIDE ER 20 MEQ TAB.ER PO SCH (08:20)
[2023-08-10] MEDS: BISOPROLOL-HCTZ 2.5-6.25 MG 1 EACH TAB PO SCH (08:20)
[2023-08-10] MEDS: MULTIVITAMINS, THERA 1 EACH TAB PO SCH (08:20)
--- NOTE | 2023-08-10 12:31 | P.PN ---
Subjective Progress Note Date: 08/10/23 This is a very pleasant 53-year-old male patient with a known history of hypertension, gastroesophageal reflux disease and a right lower extremity DVT approximately 1 year ago and had been maintained on Eliquis. Recently the patient had been having chronic back pain issues and was taken off his Eliquis f or 1 week for spinal injections per anesthesia. He was to participate in physical therapy today however he developed right-sided chest pain with pain on inhalation and presented here to the emergency room. He is still off his Eliquis that he was going to be picking up today. Unfortunately he is found to have a small peripheral pulmonary emboli to the basilar right lower lobe. No evidence of right heart strain or large central embolus. There is some developing subpleural groundglass in the right lung base reflecting early pulmonary infarct. Evidence of prior granulomatous disease. Chest x-ray revealed no acute pulmonary process. White count 8.1. Hemoglobin 16.7. Platelets 147. D-dimer 2.61. Sodium 143. Potassium 3.9. Bicarb 29. BUN 14. Creatinine 0.72. Glucose 119. He has been initiated on a heparin drip. He is seen today in the emergency department. Sitting up in a stretcher. Awake and alert in no acute distress. He is maintaining good O2 saturations in the 90s on room air. He is afebrile. Hemodynamically stable. He denies any worsening shortness of breath cough or congestion. No hemoptysis. The patient is seen today August 10, 2023 in follow-up on the regular medical floor. He is awake and alert in no acute distress. Maintaining O2 saturations in the 90s on room air. His right-sided chest discomfort is subsiding. Echocardiogram pending. White count 5.4. Hemoglobin 15.0. Platelets 107. Sodium 137. Potassium 3.0. Bicarb 23. BUN 13. Creatinine 0.63. Glucose 89. He remains on a heparin drip. Objective - Vital Signs Vital signs: Vital Signs Temp 98.6 F 08/10/23 07:23 Pulse 68 08/10/23 07:23 Resp 16 08/10/23 07:23 BP 167/96 08/10/23 07:23 Pulse Ox 95 08/10/23 07:23 FiO2 Intake & Output 04/19/24 04/20/24 04/20/24 18:59 06:59 18:59 Intake Total 720.248 Balance 720.248 Weight 89.358 kg Intake: Intake, IV Titration 240.248 Amount Heparin Sod,Pork in 0.45% 240.248 NaCl 25,000 unit In 0.45 % NaCl 1 250ml.bag @ 18 UNITS/KG/HR 16.084 mls/hr IV .[id number] [facility] Rx#: [id number] Oral 480 Other: Voiding Method Toilet Toilet Urinal Urinal - Exam GENERAL EXAM: Alert, 53-year-old male, on room air, comfortable in no apparent distress. HEAD: Normocephalic. EYES: Normal reaction of pupils, equal size. NOSE: Clear with pink turbinates. THROAT: No erythema or exudates. NECK: No masses, no JVD. CHEST: No chest wall deformity. LUNGS: Equal air entry with no crackles, wheeze, rhonchi or dullness. CVS: S1 and S2 normal with no audible murmur, regular rhythm. ABDOMEN: No hepatosplenomegaly, normal bowel sounds, no guarding or rigidity. SPINE: No scoliosis or deformity SKIN: No rashes CENTRAL NERVOUS SYSTEM: No focal deficits, tone is normal in all 4 extremities. EXTREMITIES: There is no peripheral edema. No clubbing, no cyanosis. Peripheral pulses are intact. - Labs CBC & Chem 7: 08/10/23 03:53 08/10/23 03:53 Labs: Abnormal Lab Results - Last 24 Hours (Table) 08/09/23 08/10/23 08/10/23 Range/Units 18:56 03:53 03:53 MCV 101.1 H (80.0-100.0) fL Plt Count 107 L (150-450) k/uL Lymphocytes # 0.9 L (1.0-4.8) k/uL APTT 96.8 H (22.0-30.0) sec Potassium 3.0 L (3.5-5.1) mmol/L Creatinine 0.63 L (0.66-1.25) mg/dL Calcium 7.9 L (8.4-10.2) mg/dL 08/10/23 Range/Units 03:53 MCV (80.0-100.0) fL Plt Count (150-450) k/uL Lymphocytes # (1.0-4.8) k/uL APTT 65.9 H (22.0-30.0) sec Potassium (3.5-5.1) mmol/L Creatinine (0.66-1.25) mg/dL Calcium (8.4-10.2) mg/dL Assessment and Plan Assessment: Right-sided chest pain in a patient found to have right-sided pulmonary emboli with signs of early pulmonary infarct. No evidence of right heart strain. Stable and on room air. Chronic back pain with recent spinal injection and had been off his Eliquis for 1 week History of right lower extremity DVT had been maintained on Eliquis Hypertension Gastroesophageal reflux disease Chronic tobacco dependence Plan: The patient was seen and evaluated Labs and medications reviewed Echocardiogram pending Discontinue heparin Initiate Eliquis Will require lifelong anticoagulation Currently stable and on room air We will continue to follow I have personally seen and examined the patient, performed the documentation and the assessment and plan as written. Number of minutes spent on the visit: 10.
[2023-08-10 13:09] VITALS: BP 147/98; PULSE 80; RESP 20; TEMP 98.4
--- NOTE | 2023-08-10 14:36 | DS ---
DISCHARGE SUMMARY FINAL DIAGNOSES: 1. Right-sided chest pain, shortness of breath, possible acute pulmonary embolism. 2. Possible early pulmonary infarct, improved. 3. Hypertension. 4. Gout. DISCHARGE DISPOSITION: The patient will be discharged in stable condition and guarded prognosis. HISTORY OF PRESENT ILLNESS: This is a 53-year-old gentleman, admitted with features of pulmonary embolism, treated symptomatically, improved significantly. The patient was noncompliant with medications. Pulmonary saw the patient, recommend outpatient discharge, outpatient followup. PHYSICAL EXAMINATION: VITAL SIGNS: Stable. CARDIOVASCULAR: S1 and S2. ABDOMEN: Soft. MEDICATIONS: Please refer to the medication sheet for list of medications. Continue with apixaban initiation dose. Follow up with CBC and BMP with Dr. Monet. MMEDGARDO / LETYN: [id number] /
--- NOTE | 2023-08-10 15:33 | CA ---
Transthoracic Echo Report Name: Richard Hope Age: 53 Gender: M : 1970 Exam Date: 08/10/2023 07:55 Exam Location: [facility] Ht (in): 73 Wt (lb): 197 Ordering Physician: Kin Ritchie MD Attending/Referring Phys: Keg Raiser Meenakshi Nava RDCS Procedure CPT: Indications: PE Cardiac Hx: Technical Quality: Good Contrast 1: Total Dose (mL): Contrast 2: Total Dose (mL): MEASUREMENTS (Male / Female) Normal Values 2D ECHO LV Diastolic Diameter PLAX 4.8 cm 4.2 - 5.9 / 3.9 - 5.3 cm LV Systolic Diameter PLAX 3.0 cm IVS Diastolic Thickness 1.0 cm 0.6 - 1.0 / 0.6 - 0.9 cm LVPW Diastolic Thickness 1.1 cm 0.6 - 1.0 / 0.6 - 0.9 cm LV Relative Wall Thickness 0.4 RV Internal Dim ED PLAX 3.1 cm LA Systolic Diameter LX 3.7 cm 3.0 - 4.0 / 2.7 - 3.8 cm LA Volume 49.0 cm??? 18 - 58 / 22 - 52 cm??? LA Volume Index 22.7 cm???/m??? 16 - 28 cm???/m??? Aorta at Sinotubular Diameter 3.5 cm DOPPLER AV Peak Velocity 159.4 cm/s AV Peak Gradient 10.2 mmHg MV Area PHT 3.1 cm??? Mitral E Point Velocity 69.5 cm/s Mitral A Point Velocity 76.8 cm/s Mitral E to A Ratio 0.9 MV Deceleration Time 243.1 ms FINDINGS Left Ventricle Left ventricular ejection fraction is estimated at 60-65 %. Left ventricular cavity size normal. Left ventricular wall thickness normal. No obvious regional wall motion abnormalities. Right Ventricle Normal right ventricular size. Unable to estimate the right ventricular systolic pressure. Right Atrium Normal right atrial size. Left Atrium Normal left atrial size. Mitral Valve Structurally normal mitral valve. No evidence for mitral valve prolapse. No mitral stenosis. Trace mitral regurgitation. Aortic Valve Trileaflet aortic valve. No aortic valve stenosis or regurgitation. Tricuspid Valve Structurally normal tricuspid valve. No tricuspid stenosis, regurgitation or prolapse. Pulmonic Valve Structurally normal pulmonic valve. No pulmonic regurgitation. Pericardium No pericardial effusion. Aorta Normal size aortic root and proximal ascending aorta. CONCLUSIONS Normal LV systolic function Previewed by: Dr. Shaggy Singh MD (Electronically Signed) Final Date: 10 August 2023 15:32
== END 2023-08-10 13:50 | disposition home or self-care (01) ==
LOC: EC 09:51 → 5NMEDONC 13:58
PROVIDERS: ADMIT Hospitalist; ATTEND Hospitalist
DX: I26.99 Other pulmonary embolism without acute cor pulmonale (principal); T45.516A Underdosing of anticoagulants, initial encounter; D71 Functional disorders of polymorphonuclear neutrophils; I45.10 Unspecified right bundle-branch block; I10 Essential (primary) hypertension; M10.9 Gout, unspecified; K21.9 Gastro-esophageal reflux disease without esophagitis; G89.29 Other chronic pain; M54.9 Dorsalgia, unspecified; F41.9 Anxiety disorder, unspecified; F17.200 Nicotine dependence, unspecified, uncomplicated; Z79.01 Long term (current) use of anticoagulants; Z79.899 Other long term (current) drug therapy; Z88.8 Allergy status to other drugs, medicaments and biological substances; Z86.718 Personal history of other venous thrombosis and embolism; Z98.890 Other specified postprocedural states
CPT/HCPCS: 96366 ×3; 96376; 96365; 99291; 36415; 93005; 93306; 85379; 80053; 80048; 83735; 84484; 85025 ×2; 85610; 85730 ×2; 71046; 71275; G0378 ×2; S4990 ×2; J1644 ×3; Q9967

== ENCOUNTER → 2024-02-03 | Outpatient (CLI) | payer SELFPAY | END | disposition home or self-care (01) | LOC: LABWHC1 15:31 | PROVIDERS: ATTEND Physician Assistant | CPT/HCPCS: 80307 ==

== ENCOUNTER → 2024-03-02 | Outpatient (CLI) | payer OTHER | END | disposition home or self-care (01) | LOC: LABWHC1 13:53 | PROVIDERS: ATTEND Physician Assistant | DX: Z01.818 Encounter for other preprocedural examination (principal) | CPT/HCPCS: 80307 ==

== ENCOUNTER → 2024-04-03 | Outpatient (CLI) | payer OTHER ==
[2024-04-03 16:18] LABS: INR 1.1 (<1.2); Partial Thromboplastin Time 25.1 sec (22.0-30.0); Prothrombin Time 11.9 sec (10.0-12.5)
[2024-04-03 18:35] LABS: Basophils # (A) 0.04 X 10*3/uL (0.00-0.10); Basophils % (A) 0.7 %; Eosinophils # (A) 0.16 X 10*3/uL (0.04-0.35); HCT 49.1 % (39.6-50.0); Lymphocytes # (A) 0.78 X 10*3/uL (0.90-5.00); Lymphocytes % (A) 14.5 %; MCH 33.7 pg (27.0-32.0); MCHC 34.6 g/dL (32.0-37.0); MCV 97.4 FL (80.0-97.0); Mean Platelet Volume 11.2 FL (9.5-12.2); Monocytes # (A) 0.57 X 10*3/uL (0.20-1.00); Monocytes % (A) 10.6 %; NRBC Per 100 WBC 0 X 10*3/uL (0.00-0.01); Neutrophils # (A) 3.78 X 10*3/uL (1.80-7.70); Neutrophils % (A) 70.3 %; Platelet Count 126 X 10*3/uL (140-440); RBC 5.04 X 10*6/uL (4.40-5.60); RDW 11.7 % (11.5-14.5); WBC 5.38 X 10*3/uL (4.50-10.00)
[2024-04-03 19:27] LABS: Appearance,Urine Cloudy (Clear); Bilirubin,Urine Moderate (Negative); Blood,Urine Negative (Negative); Color,Urine Orange (Yellow); Ketones,Urine Trace (Negative); Nitrite,Urine Positive (Negative); PH, Urine 5.5; Specific Gravity,Urine 1.024 (1.001-1.030)
[2024-04-03 19:46] LABS: Amorphous Sediment,Urine Present (None Seen); Bacteria,Urine None Seen (None Seen)
[2024-04-03 22:03] LABS: Blood Urea Nitrogen 11.6 mg/dL (9.0-27.0); Calcium 9.3 mg/dL (8.7-10.3); Carbon Dioxide 20.8 mmol/L (21.6-31.8); Chloride 101 mmol/L (96-109); Glucose 140 mg/dL (70-110); Potassium 3.4 mmol/L (3.5-5.5); Sodium 139 mmol/L (135-145)
== END | disposition home or self-care (01) ==
LOC: LABPAT 14:56
PROVIDERS: ATTEND Orthopaedic Surgery Orthopaedic Surgery of the Spine
DX: Z01.812 Encounter for preprocedural laboratory examination (principal); M48.061 Spinal stenosis, lumbar region without neurogenic claudication; Z22.322 Carrier or suspected carrier of Methicillin resistant Staphylococcus aureus
CPT/HCPCS: 80048; 81001; 85025; 85610; 85730; 86850; 86900; 86901; 87070

== ENCOUNTER → 2024-04-07 | Outpatient (CLI) | payer OTHER ==
--- NOTE | 2024-04-07 11:55 | XR ---
EXAMINATION TYPE: XR chest 2V DATE OF EXAM: 04/07/2024 11:38 AM COMPARISON: Chest radiographs from 08/09/2023 CLINICAL INDICATION: Male, 53 years old with history of Pre surgical; TECHNIQUE: XR chest 2V Frontal and lateral views of the chest. FINDINGS: Lungs/Pleura: There is no evidence of pleural effusion, focal consolidation, or pneumothorax. Pulmonary vascularity: Unremarkable. Heart/mediastinum: Cardiomediastinal silhouette is unremarkable. Musculoskeletal: No acute osseous pathology. IMPRESSION: No acute cardiopulmonary disease/process. [facility], , 04/07/2024 11:53 AM
== END | disposition home or self-care (01) ==
LOC: LABPAT 10:56
PROVIDERS: ATTEND Orthopaedic Surgery Orthopaedic Surgery of the Spine
DX: Z01.818 Encounter for other preprocedural examination (principal); M48.061 Spinal stenosis, lumbar region without neurogenic claudication; Z22.322 Carrier or suspected carrier of Methicillin resistant Staphylococcus aureus
CPT/HCPCS: 71046

== ENCOUNTER 2024-04-08 10:35 | Observation (INO) | payer OTHER ==
[2024-04-06 14:33] VITALS: BMI 28.2
[2024-04-08] MEDS: IV FLUID CONTINUATION 1,000 ML IV ONE ×2 (10:58→17:09)
[2024-04-08] MEDS: LACTATED RINGERS 1,000 ML IV SCH (11:11)
[2024-04-08] MEDS: ONDANSETRON 4 MG/2 ML VIAL IVP ONE (11:14)
[2024-04-08] MEDS: MIDAZOLAM 2 MG/2 ML VIAL IV ONE (11:41)
[2024-04-08] MEDS ORDERED: TRANEXAMIC 1,000 MG/100ML-NACL PREMIX BAG ONE (12:00)
[2024-04-08] MEDS ORDERED: ceFAZolin 1 GM/50 ML BAG (PMX) ONE (12:00)
[2024-04-08] MEDS ORDERED: GLYCOPYRROLATE 0.2 MG/ML 2 ML VIAL ONE (12:00)
[2024-04-08] MEDS ORDERED: PHENYLEPHRINE 10 MG/ML VIAL ONE (12:00)
[2024-04-08] MEDS ORDERED: PHENYLEPHRINE-0.9% NACL SYG 1,000 MCG/10 ML SYRINGE ONE (12:00)
[2024-04-08] MEDS ORDERED: PROPOFOL 10 MG/ML 20 ML VIAL IV ONE (12:00)
[2024-04-08] MEDS ORDERED: NEOSTIGMINE 1 MG/ML 10 ML VIAL ONE (12:00)
[2024-04-08] MEDS ORDERED: MIDAZOLAM 2 MG/2 ML VIAL ONE (12:00)
[2024-04-08] MEDS ORDERED: SODIUM CHLORIDE 0.9% IRRIG 1,000 ML BTL IRRIGATION ONE (12:00)
[2024-04-08] MEDS ORDERED: HYDROmorphone (PF) 1 MG/ML ONE (12:00)
[2024-04-08] MEDS ORDERED: ROCURONIUM 10 MG/ML (5 ML VIAL) IV ONE (12:00)
[2024-04-08] MEDS ORDERED: SUCCINYLCHOLINE CHLORIDE 200 MG/10 ML VIAL IV ONE (12:00)
[2024-04-08] MEDS ORDERED: fentaNYL (PF) 50 MCG/ML 2 ML AMP ONE (12:00)
[2024-04-08] MEDS ORDERED: ALBUMIN HUMAN 5% (25gm) 500 ML VIAL IVPB ONE (12:00)
[2024-04-08] MEDS ORDERED: KETAMINE HCL IN 0.9 % NACL 50 MG/5 ML SYRINGE ONE (12:00)
[2024-04-08] MEDS ORDERED: LIDOCAINE 1% INJ 10MG/ML (20 ML MDV) ONE (12:00)
[2024-04-08] MEDS ORDERED: HEPARIN SODIUM,PORCINE 10,000 UNIT/ML 1 ML VIAL ONE (12:00)
[2024-04-08] MEDS: LIDOCAINE 1%-EPI 1:100,000 20 ML VIAL SQ ONE ×2 (12:04)
[2024-04-08] MEDS: LACTATED RINGERS 1,000 ML IV ONE ×2 (12:04→16:48)
[2024-04-08] MEDS: BUPIVACAINE (PF) 0.5% 30 ML VIAL SQ ONE ×2 (12:04)
[2024-04-08] MEDS: ceFAZolin 1,000 MG in SODIUM CHLORIDE 0.9% 1,000 ML IRRIGATION ONE ×4 (12:04→18:46)
[2024-04-08] MEDS: THROMBIN (BOVINE) 5,000 UNIT VIAL TOPICAL ONE (12:04)
[2024-04-08] MEDS ORDERED: ONDANSETRON 4 MG/2 ML VIAL IVP PRN (17:07)
[2024-04-08] MEDS ORDERED: SENNOSIDES-DOCUSATE SODIUM 1 EACH TAB PO PRN (17:07)
[2024-04-08] MEDS ORDERED: PANTOPRAZOLE 40 MG TABLET PO PRN (17:09)
--- NOTE | 2024-04-08 17:40 | FL ---
EXAMINATION TYPE: FL guidance operating room, XR lumbar spine 2 or 3V DATE OF EXAM: 04/08/2024 5:21 PM COMPARISON: Pre Operative Images if available both CT/MRI or plain film CLINICAL INDICATION: Male, 53 years old with history of PLDF; TECHNIQUE: FL guidance operating room, XR lumbar spine 2 or 3V, multiple fluoroscopic images provided for procedure. Total fluoroscopy time: 44 seconds Total submitted images to PACS: 6 DAP: 84.040 mGym2 Gycm2 uGym2 cGycm2 or equivalent. FINDINGS: Fluoroscopic images during internal fixation/arthroplasty demonstrate hardware in appropriate positio n. Hardware appears intact. No immediate complication identified. IMPRESSION: 1. No evidence for intraoperative complication. 2. Please see the operative/procedural note for further details. [facility], , 04/08/2024 5:38 PM
[2024-04-08] MEDS: HYDROmorphone 0.5 MG/0.5 ML SYRINGE IVP PRN (17:49)
[2024-04-08] MEDS: DEXAMETHASONE SOD PHOSPHATE 4 MG/ML 1 ML VIAL IV ONE (18:46)
[2024-04-08] MEDS: HYDROcodone/APAP 7.5-325MG 1 EACH TAB PO PRN (18:51)
[2024-04-08] MEDS: CYCLOBENZAPRINE 10 MG TAB PO PRN (18:51)
[2024-04-08] MEDS: SODIUM CHLORIDE 0.9% 1,000 ML IV SCH (18:55)
--- NOTE | 2024-04-08 19:33 | P.OP ---
Date of Procedure: 04/08/24 Preoperative Diagnosis: Spinal stenosis L1-L2 3 L3-4 L4-5 L5-S1, herniated nucleus pulposus L1-L2 3 L3-4 L4-5, low back pain, lower extremity radiculopathy, Postoperative Diagnosis: Same Anesthesia: GETA Pathology: none sent Condition: stable Disposition: PACU Description of Procedure: BRIEF OPERATIVE NOTE Preoperative Diagnosis:Spinal stenosis L1-2 L2 3 L3-4 L4-5 , herniated nucleus pulposus L1-L2 3 L3-4 L4-5, low back pain, lower extremity radiculopathy, Postoperative Diagnosis:Spinal stenosis L1-L2 L2-3 L3-4 L4-5 , herniated nucleus pulposus L1-L2 3 L3-4 L4-5, low back pain, lower extremity radiculopathy, Procedure: Open lumbar posterior lateral decompression and fusion L1-L2 3 L3-4 L4-5 Transforaminal interbody fusion for a 360 degree fusion L3-4 L4-5 Wide laminectomy decompression with partial medial facetectomy and foraminotomies L1-L2 3 L3-4 L4-5 Discectomy for decompression L3-4 L4-5 Harvesting local autogenous bone graft Harvesting of bone marrow aspirate via the pedicle of L3 on the right Use of Ziemba CT-guided navigation intraoperatively for placement of hardware and evaluation of screw sites Use of fluoroscopic guidance for fusion technique Use of neuromonitoring Use of Cell Saver Surgeon: Dr. Cantu Inspector Assembly: Raul TIRADO who is present throughout the entire the case persistence during positioning, dissection, exposure, visualization, and all crucial elements of the case as well as closure. Anesthesia: General anesthesia per Dr. Donato Estimated blood loss: Approximately 450 cc with 175 given back through Cell Saver Complications: None apparent Components implanted: Peculiar K2 M cannulated Carlton pedicle screws measuring 5.5 and 6.5 mm x 50 mm with 2 rods and 2 expandable interbody cages with allogra ft bone fiber boats, DBX bone putty to supplement the local autogenous bone graft and 2 cross-links Disposition: To recovery room in good stable condition. OPERATIVE INDICATIONS OPERATIVE SUMMARY Patient has a long history of lumbar issues after sustaining an injury. He was found to have significant changes at his lumbar spine with herniations at L1-L2 3 L3-4 and L4-5 causing significant stenosis which correlated with his back and lower extremity symptoms. Patient has been treated conservatively for an extended period of time however failed conservative management exhausted conservative care and different treatment options clean surgical intervention was discussed with him. After discussing all the risks, patient alternatives and benefits at length, the patient elected to proceed with surgical intervention, signed informed consent, and presented for their procedure. The patient was seen and examined in the preoperative holding area and the surgical site was marked. The patient was given antibiotics and brought to the operating room. The patient was sedated and intubated by anesthesia in standard fashion. The patient was positioned on to the operating room table in a prone position on the appropriate frame which was well-padded and well molded. We were careful to pad any bony prominences and pressure points. We were careful to maintain the patient's cervical spine and good neutral alignment and position throughout. The patient was prepped and draped in a normal standard fashion. An appropriate timeout and keystone protocol performed. We were able to proceed with the surgery. The local wound area was infiltrated with local anesthetic. An incision was made at the midline longitudinally over the appropriate levels from L1-L5. Dissection was taken down subcutaneously to the level of the fascia which was split midline. Dissection was taken over the lamina bilaterally over the facet joints and to the transverse processes. Intraoperative x-ray was take n which showed a marker at the appropriate level. I was able to establish appropriate exposure from L1-L5 and was able to place a spinous process clamp with a navigation device attached. We then prepped and draped with a circumferential drape and then used the [email or web address] CT-guided navigation system in order to do appropriate spin intraoperatively. With this we then prepared for placement of screws from L1-L5 bilaterally. With the appropriate level positively confirmed, we were able to proceed with placement of the pedicle holes and screws. The patient had all their twitches back. The wound was copiously irrigated and suctioned dry as had been done periodically throughout the case. Screw holes were established similarly at each level. A navigated sharp awl was used to establish the starting hole. I was able to visually inspect as well as use the navigation system in order to establish the screw at the pedicle. I started to establish the pedicle hole being careful not to penetrate superiorly and medially inferior or laterally and entered into the posterior aspect vertebral body. With this I was able to place a wire for guidance for the cannulated screw. This was done similarly at each level from L1 L5 bilaterally. Imaging was done with fluoroscopic guidance as well to show excellent lamina and position of all the wires. And then screws were placed individually L1 L2-L3-L4 and L5 bilaterally with's guidance over the guidewire. All the screws had good alignment good position with excellent bony purchase. Images were taken which showed excellent alignment and position. The transverse process or sacral ala was decorticated with a high-speed bur. I was able to use these holes to place the appropriate size screw and good alignment and good position with good bony purchase. When the screws were inserted there were stimulated, and found to have no stimulation at 20 mA, except at L5 on the left which had stimulation at 12 mA. We did another CT guided spin which showed excellent position of all the hardware from L1 L5 pedicle screws. I was able to turn my attention to the decompression decompression was performed with a combination of rongeurs, curettes, Kerrison rongeurs and a ball-tip feeler. All of the bone that was removed was stripped and morcellized for use as autogenous bone graft later in the case. This was done similarly at L1-2 and then L2-3 and then 3 4 and then 4 5. There is significant foraminal stenosis each level which was remedied with decompression. I was able to obtain good central decompression as well as wide bilateral foraminal decompression. There is no evidence of dural tear or leak. Good hemostasis was maintained. The wound was irrigated and suctioned dry. I prepared to do interbody fusion at L3-4 and L4-5. This was done similarly. I performed a complete facetectomy at the appropriate level starting at L3-4 and then at L4-5 on the most symptomatic side on the left. All bone that was removed was saved for local autogenous bone grafting. I was able to gain access to the disc space at the appropriate level/levels. Good hemostasis was maintained. I was able to protect the neurologic structures. A discectomy was performed. There was some disc protrusion at each of the levels and the discectomy provided further decompression. I was also able to perform complete discectomy and endplate preparation with a combination of pituitary curettes, rasps and scrapers. With the interbody space prepared, I was able to do appropriate sizing. The appropriate size cage was chosen. The wound was irrigated and suctioned dry. The interbody space was packed with local autogenous bone graft and a small portion of bone graft substitute, and I backfilled the expandable cage after placement as well. Protecting the soft tissue structures, I was able place the cage in good alignment and good position with good fit and fill after appropriate expansion under C-arm guidance. There is no evidence of extrusion of the graft material nor protrusion of the interbody device. The wound was irrigated and suctioned dry. With the hardware intact, intraoperative x-ray was again taken which showed good alignment and position of the hardware at the appropriate levels from L1-L5. We were then able to measure, contour and place the rods and appropriate hardware bilaterally. I was able to place capcrews, tighten them down, and torque them off appropriately. I also placed raad connectors x 2 from raad to raad for further stability. With this intact I was able to place the local autogenous bone graft with additional bone graft enhancer as necessary into the posterior lateral gutters bilaterally. With the bone graft intact, a stable construct, and good decompression at the appropriate levels, we were able to proceed with closure. Good hemostasis was maintained. There is no evidence of dural tear or leak. The fascia was closed for a watertight closure. The subcutaneous tissue was closed over a superficial drain. The subcuticular tissue was closed with absorbable suture. The wound was cleaned and dried and dressed with the appropriate dressing. The drapes were broken down. The patient was gently rolled back onto their hospital bed being careful to maintain their cervical spine and good neutral alignment and position. They were woken up by anesthesia, extubated, and brought to the recovery room in good stable condition. The patient will be admitted to the hospital for appropriate postoperative care, medical management and monitoring. We will continue to follow them closely about the postoperative course.
[2024-04-08] MEDS: HYDROmorphone 1 MG/ML 1 ML SYRINGE IVP PRN (20:06)
[2024-04-09] MEDS: diazePAM 5 MG TAB PO PRN (06:08)
[2024-04-09] MEDS ORDERED: Potassium Replacement Protocol 1 EACH MISC MISCELLANE PRN (08:45)
--- NOTE | 2024-04-09 08:47 | P.CONS ---
History of Present Illness - Reason for Consult Consult date: 04/09/24 - Chief Complaint medical management - History of Present Illness This is a 53-year-old male with a history of a work injury which resulted in a lower back injury. Yesterday patient underwent extensive spinal surgery with Dr. Cantu for spinal stenosis L1-L2 3 L3-4 L4-5 L5-S1, herniated nucleus p ulposus L1-L2 3 L3-4 L4-5. Patient seen this morning laying in bed resting comfortably. Patient reports pain is well-controlled, however did have some difficulty with sleeping last night with bed position. He has a history of a pulmonary embolism, is maintained on Eliquis. Also has a history of hypertension. Vital signs are stable. He is able to move his lower extremities with no difficulty. Review of Systems Constitutional: Denies chills, Denies fever Cardiovascular: Denies chest pain, Denies dyspnea on exertion Respiratory: Denies cough, Denies dyspnea Gastrointestinal: Denies abdominal pain, Denies nausea, Denies vomiting Musculoskeletal: Denies arm numbness/tingling, Denies leg numbness/tingling Neurological: Denies headaches, Denies weakness Past Medical History Past Medical History: Hypertension Additional Past Medical History / Comment(s): gout History of Any Multi-Drug Resistant Organisms: None Reported Past Surgical History: No Surgical Hx Reported Past Anesthesia/Blood Transfusion Reactions: No Reported Reaction Past Psychological History: Anxiety Smoking Status: Current every day smoker Past Alcohol Use History: Occasional Additional Past Alcohol Use History / Comment(s): QUIT SMOKING 12/18/23 Past Drug Use History: None Reported - Past Family History Father Family Medical History: Diabetes Mellitus Medications and Allergies Home Medications Medication Instructions Recorded Confirmed Type Bisoprolol-Hctz 2.5-6.25 mg [Ziac 1 tab PO DAILY 05/18/23 04/08/24 History 2.5-6.25 MG] Omeprazole Magnesium [PriLOSEC OTC] 20 mg PO DAILY PRN 05/18/23 04/08/24 History Multivitamins, Thera [Multivitamin 1 tab PO DAILY 08/09/23 04/08/24 History (formulary)] Nicotine 14Mg/24Hr Patch [Habitrol] 1 patch TRANSDERM DAILY patch 08/10/23 04/08/24 Rx Apixaban Initiation Dose--VTE 5 mg PO BID 04/06/24 04/08/24 History [Eliquis Initiation Dosing for VTE Treatment] amLODIPine [Norvasc] 5 mg PO DAILY 04/06/24 04/08/24 History Allergies Allergy/AdvReac Type Severity Reaction Status Date / Time atenolol AdvReac PASSED OUT Verified 04/08/24 11:09 Physical Exam Vitals: Vital Signs Temp Pulse Resp BP Pulse Ox 04/09/24 01:04 98.3 F 71 15 114/77 98 04/08/24 20:45 66 111/69 97 04/08/24 20:29 63 114/73 97 04/08/24 20:14 63 119/77 95 04/08/24 19:59 103 H 136/86 100 04/08/24 19:44 72 136/87 97 04/08/24 19:29 63 146/86 96 04/08/24 19:14 72 135/88 97 04/08/24 19:01 72 136/87 97 04/08/24 18:44 77 138/87 97 04/08/24 18:20 70 16 119/74 96 04/08/24 17:55 83 16 130/78 94 L 04/08/24 17:40 85 16 132/80 94 L 04/08/24 17:24 97 16 139/78 93 L 04/08/24 17:09 98.7 F 97 14 141/78 95 04/08/24 10:59 98.0 F 64 16 149/89 97 Intake and Output 04/08/24 04/09/24 04/09/24 22:59 06:59 14:59 Intake Total 1100 Output Total 950 80 Balance 150 -80 Intake: IV 1100 Output: Drainage 100 80 Back 100 80 Urine 400 Estimated Blood Loss 450 Other: Voiding Method Indwelling Catheter # Voids 1 Weight 96.4 kg - Constitutional General appearance: cooperative, no acute distress - EENT Eyes: PERRLA - Neck Neck: no lymphadenopathy, normal ROM, no rigidity - Respiratory Respiratory: bilateral: CTA - Cardiovascular Rhythm: regular Heart sounds: normal: S1, S2 - Gastrointestinal General gastrointestinal: soft, no tenderness - Integumentary Integumentary: normal, normal turgor - Neurologic Neurologic: CNII-XII intact - Psychiatric Psychiatric: A&O x's 3 Results CBC & Chem 7: 12/18/24 11:12 Labs: Abnormal Lab Results - Last 24 Hours (Table) 04/08/24 Range/Units 11:12 Potassium 3.3 L (3.5-5.1) mmol/L Assessment and Plan (1) Lumbar spinal stenosis Current Visit: No Status: Acute Code(s): M48.061 - SPINAL STENOSIS, LUMBAR REGION WITHOUT NEUROGENIC GIANNI SNOMED Code(s): 17315290 (2) History of pulmonary embolism Current Visit: Yes Status: Acute Code(s): Z86.711 - PERSONAL HISTORY OF PULMONARY EMBOLISM SNOMED Code(s): 726516945 (3) Hypertension Current Visit: Yes Status: Acute Code(s): I10 - ESSENTIAL (PRIMARY) HYPERTENSION SNOMED Code(s): 25899516 Plan: Continue home medications. Replace potassium per protocol. Check CBC and CMP in the morning. Patient seen and evaluated by nurse practitioner, physician in agreement with plan.
[2024-04-09 08:56] LABS: Basophils # (A) 0.04 X 10*3/uL (0.00-0.10); Basophils % (A) 0.6 %; Eosinophils # (A) 0.13 X 10*3/uL (0.04-0.35); HCT 38.1 % (39.6-50.0); HGB 12.5 g/dL (13.0-17.0); Lymphocytes # (A) 1.05 X 10*3/uL (0.90-5.00); Lymphocytes % (A) 16.4 %; MCH 33.3 pg (27.0-32.0); MCHC 32.8 g/dL (32.0-37.0); MCV 101.6 FL (80.0-97.0); Mean Platelet Volume 11.8 FL (9.5-12.2); Monocytes # (A) 0.74 X 10*3/uL (0.20-1.00); Monocytes % (A) 11.5 %; NRBC Per 100 WBC 0 X 10*3/uL (0.00-0.01); Neutrophils # (A) 4.41 X 10*3/uL (1.80-7.70); Neutrophils % (A) 68.9 %; Platelet Count 116 X 10*3/uL (140-440); RBC 3.75 X 10*6/uL (4.40-5.60); RDW 11.6 % (11.5-14.5); WBC 6.41 X 10*3/uL (4.50-10.00)
[2024-04-09] MEDS: amLODIPine 5 MG TAB PO SCH (09:27)
[2024-04-09] MEDS: BISOPROLOL-HCTZ 2.5-6.25 MG 1 EACH TAB PO SCH (09:27)
[2024-04-09] MEDS: APIXABAN 5 MG TAB PO SCH (09:42)
[2024-04-09] MEDS: MULTIVITAMINS, THERA 1 EACH TAB PO SCH (09:42)
[2024-04-09] MEDS: SENNOSIDES-DOCUSATE SODIUM 1 EACH TAB PO SCH (09:42)
[2024-04-09] MEDS: POTASSIUM CHLORIDE ER 20 MEQ TAB.ER PO SCH (09:42)
[2024-04-09 10:15] LABS: Blood Urea Nitrogen 14.4 mg/dL (9.0-27.0); Calcium 8.1 mg/dL (8.7-10.3); Carbon Dioxide 23.2 mmol/L (21.6-31.8); Chloride 102 mmol/L (96-109); Glucose 115 mg/dL (70-110); Potassium 3.5 mmol/L (3.5-5.5); Sodium 137 mmol/L (135-145)
--- NOTE | 2024-04-09 10:59 | P.PN ---
Progress Note - Text Progress Note Date: 04/09/24 Postoperative day #1 Patient is seen and examined today at bedside. The patient has some pain around the surgical site as expected, but was able to get up to a chair with physical therapy well. Pain is being controlled with medication. He still has his Tinajero intact. He is able to tolerate his regular diet. Physical Exam Afebrile with stable vital signs Abdomen is soft nontender. Chest has good excursion deep and space expiration The incision site is clean dry and intact. No erythema there is no purulence.The dressing and the drain are intact. There is minimal drainage from the Hemovac His thighs and calf soft nontender. He has sustained dorsiflexion plantarflexion EHL intact Extremities have not had neurologic change from prior to surgery. Calves and thighs were soft nontender without evidence of DVT. Assessment/Plan Postoperative day #1 status post open decompression fusion L1-5 for his severe spinal stenosis with lower extreme radiculopathy Patient is progressing as expected from the surgery. He has already been able to get up and his pain is adequately controlled but he still requiring IV medications as expected. We need to get his Tinajero catheter out today. We will continue to increase the patient's mobilization with therapy. We will continue pain control with oral or IV medications. We'll continue to follow patient closely.
--- NOTE | 2024-04-09 12:34 | P.PN ---
Progress Note - Text Progress Note Date: 04/09/24 Orthopedic Spine History of present illness: Patient is a pleasant 53-year-old male who is seen and examined at the bedside following posterior lateral decompression and fusion performed yesterday. Patient states they are doing well post operatively. He states he has been out of bed multiple times to the bedside. His Tinajero catheter was discontinued within the last hour. He continues to have pain at the surgical site at his lumbar spine which is currently being controlled with oral and IV medications. He does have some numbness in his left lower extremity most significant at the foot. He is currently happy with his initial progress postoperatively. Currently does not complain of nausea, vomiting, fever, or chills. Patient states pain has been adequately controlled. Patient is eating without difficulty. Patient is being seen by medicine for his other medical diagnoses including hypertension and history of pulmonary embolism. Physical Exam Lumbar Fusion: Status post surgical day number 1 Patient is awake, alert, and oriented 3 Vital signs stable Good chest excursion with deep inspiration and expiration Dorsiflexion, plantarflexion, and extensor hallucis longus positive sustained bilaterally No signs or symptoms of DVT; no calf pain; pneumatic cuffs intact bilateral lower extremities Optifoam dressings are clean, dry, and intact over the lumbar spine and right iliac crest; no erythema, purulence, or signs of infection Neurovascularly intact bilaterally lower extremities Hemovac drain intact Assessment: Status post open L1-2, L2-3, L3-4, and L4-5 posterior lateral decompression and fusion with L3-4 and L4-5 transforaminal lumbar interbody fusion Low back pain Left lower extremity radiculopathy Lumbar spinal stenosis Lumbar herniated nucleus pulposus Plan: 1. Ambulate as tolerated; work with Physical Therapy to increase mobilization. We will plan for a walker at the time of discharge. Walker is necessary to help increase the patient's mobility and ambulation status while within his home. 2. Continue pain control with IV and oral medications; will plan to begin weaning the patient off of IV narcotic medication in anticipation for discharge home in the next 1-2 days. 3. Dressings to remain intact with Optifoam; patient may shower with dressings intact 4. Medical management can continue to manage patient for patient's other medical diagnoses 5. We will continue to follow the patient closely; depending on the patient's progress, we may plan for discharge home as early as tomorrow, 04/10/2024, or 04/11/2024. 6. Patient can follow-up with Raul Beck PA-C or Dr. Syd Cantu at [facility] in 2-3 weeks following discharge
[2024-04-09] MEDS: BENZOCAINE/MENTHOL LOZENG 1 EACH LOZENGE MUCOUS MEM PRN (22:51)
--- NOTE | 2024-04-10 08:37 | P.PN ---
Subjective Principal diagnosis: Status post laminectomy. This is a 53-year-old white male essentially admitted for work-related injury with low back pain and disc herniation. The patient is doing quite well postop day #2. Objective - Vital Signs Vital signs: Vital Signs Temp 98.8 F 04/10/24 06:10 Pulse 90 04/10/24 02:53 Resp 16 04/10/24 02:53 BP 133/83 04/10/24 02:53 Pulse Ox 94 L 04/10/24 02:53 FiO2 Intake & Output 04/09/24 04/10/24 04/10/24 18:59 06:59 18:59 Intake Total 1000 Output Total 1845 1450 Balance -845 -1450 Intake: Intake, IV Titration 1000 Amount Sodium Chloride 0.9% 1, 900 000 ml @ 75 mls/hr IV . [id number] [facility] Rx#:[id number] ceFAZolin 2 gm In Sodium 100 Chloride 0.9% 50 ml @ 100 mls/hr IVPB Q8H [facility] Rx#: [id number] Output: Drainage 220 200 Back 220 200 Urine 1625 1250 Uretheral (Tinajero) 100 Other: Voiding Method Indwelling Catheter # Voids 1 - Constitutional General appearance: Present: average body habitus, cooperative - EENT Eyes: Absent: abnormal pupil - Neck Neck: Absent: lymphadenopathy - Respiratory Respiratory: bilateral: diminished - Cardiovascular Rhythm: regular Heart sounds: normal: S1, S2 Abnormal Heart Sounds: Absent: S3 Gallop - Gastrointestinal General gastrointestinal: Present: soft. Absent: tenderness - Integumentary Integumentary: Absent: cellulitis - Labs CBC & Chem 7: 04/09/24 03:46 04/09/24 03:46 Labs: Abnormal Lab Results - Last 24 Hours (Table) 04/09/24 04/09/24 Range/Units 03:46 03:46 RBC 3.75 L (4.40-5.60) X 10*6/uL Hgb 12.5 L (13.0-17.0) g/dL Hct 38.1 L (39.6-50.0) % MCV 101.6 H (80.0-97.0) FL MCH 33.3 H (27.0-32.0) pg Plt Count 116 L (140-440) X 10*3/uL Glucose 115 H (70-110) mg/dL Calcium 8.1 L (8.7-10.3) mg/dL Assessment and Plan (1) History of pulmonary embolism Current Visit: Yes Status: Acute Code(s): Z86.711 - PERSONAL HISTORY OF PULMONARY EMBOLISM SNOMED Code(s): 974644631 (2) Lumbar spinal stenosis Current Visit: No Status: Acute Code(s): M48.061 - SPINAL STENOSIS, LUMBAR REGION WITHOUT NEUROGENIC GIANNI SNOMED Code(s): 21708159 Plan: Continue current regimen of treatment. Discharge when cleared by Ortho. Blood pressure stable. Continue appropriate pain control. Time with Patient: Less than 30
--- NOTE | 2024-04-10 08:47 | P.PN ---
Progress Note - Text Progress Note Date: 04/10/24 Orthopedic Spine History of present illness: Patient is a pleasant 53-year-old male who is seen and examined at the bedside following posterior lateral decompression and fusion performed Saturday. Patient states he has been improving post operatively. He states he has been out of bed multiple times to the bedside. His Tinajero catheter was discontinued and he has been voiding without difficulty. He continues to have pain at the surgical site at his lumbar spine which is currently being controlled with oral and IV medications. He does have some numbness in his left lower extremity but states today it is only in his toes. He is currently happy with his initial progress postoperatively. Currently does not complain of nausea, vomiting, fever, or chills. Patient states pain has been adequately controlled. Patient is eating without difficulty. His postoperative Hemovac drain continues to be intact. He did have 200 mL of blood loss during the overnight shift. Patient is being seen by medicine for his other medical diagnoses including hypertension and history of pulmonary embolism. Physical Exam Lumbar Fusion: Status post surgical day number 2 Patient is awake, alert, and oriented 3 Vital signs stable Good chest excursion with deep inspiration and expiration Dorsiflexion, plantarflexion, and extensor hallucis longus positive sustained bilaterally No signs or symptoms of DVT; no calf pain; pneumatic cuffs intact bilateral lower extremities Optifoam dressings are clean, dry, and intact over the lumbar spine and right iliac crest; no erythema, purulence, or signs of infection Neurovascularly intact bilaterally lower extremities Hemovac drain intact Assessment: Status post open L1-2, L2-3, L3-4, and L4-5 posterior lateral decompression and fusion with L3-4 and L4-5 transforaminal lumbar interbody fusion Low back pain Left lower extremity radiculopathy Lumbar spinal stenosis Lumbar herniated nucleus pulposus Plan: 1. Ambulate as tolerated; work with Physical Therapy to increase mobilization. We will plan for a walker at the time of discharge. Prescription is signed and provided to case management to obtain walker for home use. Walker is necessary to help increase the patient's mobility and ambulation status while within his home. 2. Continue pain control with IV and oral medications; will plan to begin weaning the patient off of IV narcotic medication in anticipation for discharge home in the next 1-2 days. MAPS has been reviewed today, 04/10/2024, with an Overall Overdose Risk Score of 320. An "Opiod Start Talking" Form has been signed and placed in the patient's chart. A prescription has been written for prescription is written and sent to the [facility] pharmacy for hydrocodone 7.5 mg / 325 mg, 1 tab, every 4 hours, as needed for acute pain, dispense #42. Prescriptions also written for cyclobenzaprine 10 mg, 1 tab, 3 times daily, as needed for muscle spasm, dispense #60, and Senokot-S, 1 tab, twice daily, as needed for constipation, dispense #60. 3. Dressings to remain intact with Optifoam; patient may shower with dressings intact 4. Hemovac drain continues to remain intact. There was 200 mL blood loss overnight shift. We will continue to keep the Hemovac drain intact until the drainage slows. If the drainage slows we may plan to discontinue the drain tomorrow with possible discharge home. 5. Medical management can continue to manage patient for patient's other medical diagnoses 6. We will continue to follow the patient closely; depending on the patient's progress, we may plan for discharge home as early as tomorrow, 04/10/2024, or 04/11/2024. 7. Patient can follow-up with Raul Beck PA-C or Dr. Syd Cantu at [facility] in 2-3 weeks following discharge
[2024-04-10 09:14] LABS: ALT 27 U/L (10-49); AST 51 U/L (14-35); Albumin 3.2 g/dL (3.8-4.9); Albumin/Globulin Ratio 1.52 Ratio (1.60-3.17); Alkaline Phosphatase 75 U/L (41-126); BUN/Creat Ratio 15.62 Ratio (12.00-20.00); Blood Urea Nitrogen 12.5 mg/dL (9.0-27.0); Calcium 8.1 mg/dL (8.7-10.3); Carbon Dioxide 24.3 mmol/L (21.6-31.8); Chloride 104 mmol/L (96-109); Globulin 2.1 g/dL (1.6-3.3); Glucose 111 mg/dL (70-110); HGB 11.5 g/dL (13.0-17.0); MCH 33.6 pg (27.0-32.0); MCHC 33.8 g/dL (32.0-37.0); MCV 99.4 FL (80.0-97.0); Mean Platelet Volume 11.3 FL (9.5-12.2); NRBC Per 100 WBC 0 X 10*3/uL (0.00-0.01); Platelet Count 96 X 10*3/uL (140-440); Potassium 3.6 mmol/L (3.5-5.5); RBC 3.42 X 10*6/uL (4.40-5.60); RDW 11.5 % (11.5-14.5); Sodium 139 mmol/L (135-145); Total Bilirubin 0.9 mg/dL (0.3-1.2); Total Protein 5.3 g/dL (6.2-8.2); WBC 7.14 X 10*3/uL (4.50-10.00)
[2024-04-11] MEDS: MAGNESIUM HYDROXIDE 2,400 MG/30 ML CUP PO PRN (08:13)
--- NOTE | 2024-04-11 09:32 | P.DS ---
Providers Date of admission: 04/08/24 16:59 Attending physician: William Cantu Consults: 04/08/24 17:07 Consult Physician Routine Consulting Provider: Boni Monet Consult Reason/Comments: Medical management Do you want consulting provider notified?: Yes Primary care physician: Boni Monet Hospital Course: The patient presented on the day of admission as per their operative note. He had multilevel spinal stenosis and underwent open decompression fusion L1-L2 3 L3-4 and L4-5 for his stenosis with lower extreme radiculopathy and low back pain. He feels like his legs are doing better. He still having soreness at his back but it is controlled with oral medication. He is voiding freely and ambulatory in his room. Physical Exam The incision site is clean dry and intact. There is no erythema no drainage. There is no purulence no evidence of infection. There is no active drainage. There is no erythema. There are some diffuse swelling which appears stable Abdomen soft and nontender. Chest has good excursion with deep inspiration and expiration. The patient has active and passive range of motion intact at the upper and lower extremities. There is no acute change in neurologic status. He has sustained dorsiflexion plantarflexion EHL intact. Calves and thighs soft nontender. Hospital Course Postoperative day #3 status post open decompression and fusion L1-5 for his spinal stenosis with lower extreme radiculopathy. The patient has been making good progress postoperatively. They have completed the prophylactic antibiotics without any signs or symptoms of infection. The p atient has been able to advance their diet, and is tolerating diet adequately. The pain was initially controlled with IV medications and is now controlled appropriately with oral medications. The patient has been able to increase their mobilization. She he is ambulatory while in his room and into the hallways The patient has progressed appropriately. He has not yet had a bowel movement but he is passing some gas. He had some milk of mag this morning. If he is not having bowel movement however to collect suppository later today. If he is able to have a bowel movement and he feels comfortable then I think that he would be gay good stable condition for discharge today. If he is still unable to have a bowel movement we will continue to monitor this and hold him for another night. They will be sent home with appropriate prescriptions. I answered their questions to the best of my ability in a language that they can understand and they are agreeable with the plan. They will follow up as directed. Patient Condition at Discharge: Good Plan - Discharge Summary Discharge Rx Participant: Yes New Discharge Prescriptions: New HYDROcodone/APAP 7.5-325MG [[place] 7.5-325] 1 each PO Q4HR PRN #42 tab PRN Reason: Pain Cyclobenzaprine [Flexeril] 10 mg PO TID PRN #60 tab PRN Reason: Muscle Spasm Sennosides-Docusate Sodium [Senokot-S] 1 tab PO BID PRN #60 tablet PRN Reason: Constipation No Action Bisoprolol-Hctz 2.5-6.25 mg [Ziac 2.5-6.25 MG] 1 tab PO DAILY Omeprazole Magnesium [PriLOSEC OTC] 20 mg PO DAILY PRN PRN Reason: Heartburn Nicotine 14Mg/24Hr Patch [Habitrol] 1 patch TRANSDERM DAILY patch amLODIPine [Norvasc] 5 mg PO DAILY Multivitamins, Thera [Multivitamin (formulary)] 1 tab PO DAILY Apixaban Initiation Dose--VTE [Eliquis Initiation Dosing for VTE Treatment] 5 mg PO BID Discharge Medication List Bisoprolol-Hctz 2.5-6.25 mg [Ziac 2.5-6.25 MG] 1 tab PO DAILY 05/18/23 [History] Omeprazole Magnesium [PriLOSEC OTC] 20 mg PO DAILY PRN 05/18/23 [History] Multivitamins, Thera [Multivitamin (formulary)] 1 tab PO DAILY 08/09/23 [History] Nicotine 14Mg/24Hr Patch [Habitrol] 1 patch TRANSDERM DAILY patch 08/10/23 [Rx] Apixaban Initiation Dose--VTE [Eliquis Initiation Dosing for VTE Treatment] 5 mg PO BID 04/06/24 [History] amLODIPine [Norvasc] 5 mg PO DAILY 04/06/24 [History] Cyclobenzaprine [Flexeril] 10 mg PO TID PRN #60 tab 04/10/24 [Rx] HYDROcodone/APAP 7.5-325MG [[place] 7.5-325] 1 each PO Q4HR PRN #42 tab 04/10/24 [Rx] Sennosides-Docusate Sodium [Senokot-S] 1 tab PO BID PRN #60 tablet 04/10/24 [Rx] Follow up Appointment(s)/Referral(s): Raul Beck, KLAUS [PHYSICIAN TANK INSPECTOR] - 2 Weeks (Patient may follow-up with Raul Beck PA-C or Dr. Syd Cantu at [facility] in 2-3 weeks following discharge. ) Activity/Diet/Wound Care/Special Instructions: 1. Patient may shower with Optifoam dressing intact. 2. Patient may remove Optifoam dressing in 3 days and shower without a dressing at that time. 3. Patient should refrain from driving until at least after their first follow- up appointment in the office. 4. Patient should avoid excessive bending, twisting, lifting; avoid overhead lifting; no lifting greater than 10 pounds 5. Take medications as prescribed 6. Patient should avoid anti-inflammatory medications over the next 6 weeks postoperatively 7. Patient is encouraged to utilize walker to aid in ambulation as needed 8. Do not soak in tub Discharge Disposition: HOME SELF-CARE
[2024-04-11] MEDS: bisacodyL 10 MG SUPP RECTAL PRN (11:43)
--- NOTE | 2024-04-11 13:26 | P.PN ---
Subjective Progress Note Date: 04/11/24 Status post laminectomy. This is a 53-year-old white male essentially admitted for work-related injury wi th low back pain and disc herniation 04/11. Patient seen and examined. Complaining of constipation. If patient has a bowel movement and he can be discharged from medical perspective REVIEW OF SYSTEMS: CONSTITUTIONAL: No fever, no malaise,. CARDIOVASCULAR: No chest pain, no palpitations, no syncope. PULMONARY: No shortness of breath, no cough, GASTROINTESTINAL: No diarrhea, no nausea, no vomiting, no abdominal pain. NEUROLOGICAL: No headaches, no weakness, PHYSICAL EXAMINATION: GENERAL: The patient is alert and oriented x3, not in any acute distress. Well developed, well nourished. HEENT: Pupils are round and equally reacting to light. EOMI. No scleral icterus. No conjunctival pallor. Normocephalic, atraumatic. No pharyngeal erythema. No thyromegaly. CARDIOVASCULAR: S1 and S2 present. No murmurs, rubs, or gallops. PULMONARY: Chest is clear to auscultation, no wheezing or crackles. ABDOMEN: Soft, nontender, nondistended, normoactive bowel sounds. No palpable organomegaly. MUSCULOSKELETAL: No joint swelling or deformity. EXTREMITIES: No cyanosis, clubbing, or pedal edema. NEUROLOGICAL: Gross neurological examination did not reveal any focal deficits. SKIN: Lumbar area surgical incision seen Assessment and plan Status post open L1-2, L2-3, L3-4, and L4-5 posterior lateral decompression and fusion with L3-4 and L4-5 transforaminal lumbar interbody fusion Low back pain Left lower extremity radiculopathy Lumbar spinal stenosis Lumbar herniated nucleus pulposus History of PE Monitor vital signs Monitor CBC Monitor CMP status post open decompression fusion L1-L2 3 L3-4 and L4-5 Continue pain management per orthopedics Continue DVT prophylaxis per orthopedics Aggressive bowel regimen Resume home meds PT and OT consulted Labs and medication were reviewed.. Continue same treatment. Continue with symptomatic treatment. Resume home medication. Monitor labs and vitals. DVT and GI prophylaxis. Further recommendations as per clinical course of the patient Dictation was produced using [employer] dictation software. please excuse any grammatical, word or spelling errors. Objective - Vital Signs Vital signs: Vital Signs Temp 99.7 F H 04/11/24 06:50 Pulse 77 04/11/24 06:50 Resp 18 04/11/24 06:50 BP 132/76 04/11/24 06:50 Pulse Ox 96 04/11/24 06:50 FiO2 Intake & Output 04/10/24 04/11/24 04/11/24 18:59 06:59 18:59 Intake Total 500 360 Output Total 75 955 Balance 425 -595 Intake: Intake, IV Titration 100 Amount Lactated Ringers 1,000 ml 100 @ 20 mls/hr IV .Q24H [facility] Rx#:[id number] Oral 400 360 Output: Drainage 75 55 Back 75 55 Urine 900 Other: Voiding Method Toilet # Voids 3 - Labs CBC & Chem 7: 04/10/24 03:55 04/10/24 03:55
[2024-04-12 09:39] VITALS: BP 124/68; PULSE 86; RESP 18; TEMP 99.9
--- NOTE | 2024-04-12 10:13 | P.DS ---
Providers Date of admission: 04/08/24 16:59 Attending physician: William Cantu Consults: 04/08/24 17:07 Consult Physician Routine Consulting Provider: Boni Monet Consult Reason/Comments: Medical management Do you want consulting provider notified?: Yes Primary care physician: Boni Monet Hospital Course: The patient presented on the day of admission as per their operative note. He has made good progress steadily over this past several days. He had a bowel movement yesterday. He is voiding freely. He is tolerating his regular diet and his pain is controlled with oral medications Physical Exam The incision site is clean dry and intact. There is no erythema no drainage. There is no purulence no evidence of infection. The wound and the dressing are clear. There is no drainage. There is no erythema Abdomen soft and nontender. No significant distention Chest has good excursion with deep inspiration and expiration. The patient has active and passive range of motion intact at the upper and lower extremities. There is no acute change in neurologic status. He has sustained dorsiflexion plantarflexion EHL intact Hospital Course Postoperative day #4 status post open decompression fusion L1 L5 for severe spinal stenosis with disc herniation and lower extremity radiculopathy the patient has been making good steady progress postoperatively. They have completed the prophylactic antibiotics without any signs or symptoms of infection. The patient has been able to advance their diet, and is tolerating diet adequately. The pain was initially controlled with IV medications and is now controlled appropriately with oral medications. The patient has been able to increase their mobilization. He has had a bowel movement yesterday and feels comfortable with that. His belly is feeling better. His voiding freely nicely. He has braces at home which she should wear when he is up and about. He should avoid any heavy or rigorous work. No repetitive bending twisting or lifting. He may ambulate as tolerated. The patient has progressed appropriately. I think they are in good stable condition for discharge today. They will be sent home with appropriate prescriptions. I answered their questions to the best of my ability in a language that they can understand and they are agreeable with the plan. They will follow up as directed in approximate 2 weeks or sooner if he is having problems. Patient Condition at Discharge: Good Plan - Discharge Summary Discharge Rx Participant: Yes New Discharge Prescriptions: New HYDROcodone/APAP 7.5-325MG [[place] 7.5-325] 1 each PO Q4HR PRN #42 tab PRN Reason: Pain Cyclobenzaprine [Flexeril] 10 mg PO TID PRN #60 tab PRN Reason: Muscle Spasm Sennosides-Docusate Sodium [Senokot-S] 1 tab PO BID PRN #60 tablet PRN Reason: Constipation No Action Bisoprolol-Hctz 2.5-6.25 mg [Ziac 2.5-6.25 MG] 1 tab PO DAILY Omeprazole Magnesium [PriLOSEC OTC] 20 mg PO DAILY PRN PRN Reason: Heartburn Nicotine 14Mg/24Hr Patch [Habitrol] 1 patch TRANSDERM DAILY patch amLODIPine [Norvasc] 5 mg PO DAILY Multivitamins, Thera [Multivitamin (formulary)] 1 tab PO DAILY Apixaban Initiation Dose--VTE [Eliquis Initiation Dosing for VTE Treatment] 5 mg PO BID Discharge Medication List Bisoprolol-Hctz 2.5-6.25 mg [Ziac 2.5-6.25 MG] 1 tab PO DAILY 05/18/23 [History] Omeprazole Magnesium [PriLOSEC OTC] 20 mg PO DAILY PRN 05/18/23 [History] Multivitamins, Thera [Multivitamin (formulary)] 1 tab PO DAILY 08/09/23 [History] Nicotine 14Mg/24Hr Patch [Habitrol] 1 patch TRANSDERM DAILY patch 08/10/23 [Rx] Apixaban Initiation Dose--VTE [Eliquis Initiation Dosing for VTE Treatment] 5 mg PO BID 04/06/24 [History] amLODIPine [Norvasc] 5 mg PO DAILY 04/06/24 [History] Cyclobenzaprine [Flexeril] 10 mg PO TID PRN #60 tab 04/10/24 [Rx] HYDROcodone/APAP 7.5-325MG [[place] 7.5-325] 1 each PO Q4HR PRN #42 tab 04/10/24 [Rx] Sennosides-Docusate Sodium [Senokot-S] 1 tab PO BID PRN #60 tablet 04/10/24 [Rx] Follow up Appointment(s)/Referral(s): Raul Beck, KLAUS [PHYSICIAN COMPUTER NETWORK AND SYSTEMS ENGINEER] - 2 Weeks (Patient may follow-up with Raul Beck PA-C or Dr. Syd Cantu at [facility] in 2-3 weeks following discharge. ) Activity/Diet/Wound Care/Special Instructions: 1. Patient may shower with Optifoam dressing intact. 2. Patient may remove Optifoam dressing on Saturday and shower without a dressing at that time. 3. Patient should refrain from driving until at least after their first follow- up appointment in the office. 4. Patient should avoid excessive bending, twisting, lifting; avoid overhead lifting; no lifting greater than 10 pounds 5. Take medications as prescribed 6. Patient should avoid anti-inflammatory medications over the next 6 weeks postoperatively 7. Patient is encouraged to utilize walker to aid in ambulation as needed 8. Do not soak in tub Discharge Disposition: HOME SELF-CARE
--- NOTE | 2024-04-12 13:01 | P.PN ---
Subjective Progress Note Date: 04/12/24 Status post laminectomy. This is a 53-year-old white male essentially admitted for work-related injury wi th low back pain and disc herniation 04/11. Patient seen and examined. Complaining of constipation. If patient has a bowel movement and he can be discharged from medical perspective 04/12. Patient seen and examined. No acute issues overnight REVIEW OF SYSTEMS: CONSTITUTIONAL: No fever, no malaise,. CARDIOVASCULAR: No chest pain, no palpitations, no syncope. PULMONARY: No shortness of breath, no cough, GASTROINTESTINAL: No diarrhea, no nausea, no vomiting, no abdominal pain. NEUROLOGICAL: No headaches, no weakness, PHYSICAL EXAMINATION: GENERAL: The patient is alert and oriented x3, not in any acute distress. Well developed, well nourished. HEENT: Pupils are round and equally reacting to light. EOMI. No scleral icterus. No conjunctival pallor. Normocephalic, atraumatic. No pharyngeal erythema. No thyromegaly. CARDIOVASCULAR: S1 and S2 present. No murmurs, rubs, or gallops. PULMONARY: Chest is clear to auscultation, no wheezing or crackles. ABDOMEN: Soft, nontender, nondistended, normoactive bowel sounds. No palpable organomegaly. MUSCULOSKELETAL: No joint swelling or deformity. EXTREMITIES: No cyanosis, clubbing, or pedal edema. NEUROLOGICAL: Gross neurological examination did not reveal any focal deficits. SKIN: Lumbar area surgical incision seen Assessment and plan Status post open L1-2, L2-3, L3-4, and L4-5 posterior lateral decompression and fusion with L3-4 and L4-5 transforaminal lumbar interbody fusion Low back pain Left lower extremity radiculopathy Lumbar spinal stenosis Lumbar herniated nucleus pulposus History of PE Monitor vital signs Monitor CBC Monitor CMP status post open decompression fusion L1-L2 3 L3-4 and L4-5 Continue pain management per orthopedics Continue DVT prophylaxis per orthopedics Aggressive bowel regimen PT and OT following Labs and medication were reviewed.. Continue same treatment. Continue with symptomatic treatment. Resume home medication. Monitor labs and vitals. DVT and GI prophylaxis. Further recommendations as per clinical course of the patient Dictation was produced using [employer] dictation software. please excuse any grammatical, word or spelling errors. Objective - Vital Signs Vital signs: Vital Signs Temp 99.9 F H 1222/24 07:06 Pulse 86 04/12/24 07:06 Resp 18 04/12/24 07:06 BP 124/68 04/12/24 07:06 Pulse Ox 96 04/12/24 07:06 FiO2 Intake & Output 04/11/24 04/12/24 04/12/24 18:59 06:59 18:59 Intake Total 480 Balance 480 Intake: Oral 480 Other: # Voids 3 3 # Bowel Movements 1 - Labs CBC & Chem 7: 04/10/24 03:55 04/10/24 03:55
== END 2024-04-12 14:25 | disposition home or self-care (01) ==
LOC: OR 10:35 → 4SSUR 16:59 → OR 16:59 → 4SSUR 16:59
PROVIDERS: ADMIT Orthopaedic Surgery Orthopaedic Surgery of the Spine; ATTEND Orthopaedic Surgery Orthopaedic Surgery of the Spine
DX: M51.16 Intervertebral disc disorders with radiculopathy, lumbar region (principal); M48.061 Spinal stenosis, lumbar region without neurogenic claudication; K59.00 Constipation, unspecified; I10 Essential (primary) hypertension; Z79.01 Long term (current) use of anticoagulants; Z79.899 Other long term (current) drug therapy; Z86.711 Personal history of pulmonary embolism; Z87.891 Personal history of nicotine dependence; Z88.8 Allergy status to other drugs, medicaments and biological substances
CPT/HCPCS: 22633; 22634; 22614 ×2; 22853 ×4; 20930; 20936; 22842; 97116; 97161; 86891; 80053; 80048; 84132; 85025; 85027; 72100; G0378 ×5; C1713 ×2; J2250; J0330; J1644; J2710; J0690 ×4; J2405; J2003; J3010; J1171 ×4; P9045; J2704; J2371 ×2; J0665; J1596

== ENCOUNTER 2024-06-22 07:20 | Inpatient (IN) | payer OTHER ==
--- NOTE | 2024-06-22 07:59 | ED ---
General Adult HPI - General Chief complaint: Back Pain/Injury Stated complaint: Back pain Time Seen by Provider: 06/22/24 07:22 Source: patient, RN notes reviewed Mode of arrival: ambulatory Limitations: no limitations - History of Present Illness Initial comments: Patient is a 53-year-old male present to the emergency department with concerns with back pain. Onset of symptoms was this morning. Discomfort is right mid back pain. Patient does have history of chronic lower back pain and did have surgery 2 months ago. Patient is having additional surgery in the next couple of weeks. No history of discomfort similar to this this morning. Patient states he does feel little bit short of breath associated with it. Patient states he has had some mild chest and upper respiratory congestion over the past couple of days as well. No fever. Occasional cough. - Related Data Home Medications Medication Instructions Recorded Confirmed Bisoprolol-Hctz 2.5-6.25 mg [Ziac 1 tab PO DAILY 05/18/23 06/22/24 2.5-6.25 MG] Omeprazole Magnesium [PriLOSEC OTC] 20 mg PO DAILY PRN 05/18/23 06/22/24 Multivitamins, Thera [Multivitamin 1 tab PO DAILY 08/09/23 06/22/24 (formulary)] Allergies Allergy/AdvReac Type Severity Reaction Status Date / Time atenolol AdvReac PASSED OUT Verified 06/22/24 09:51 Review of Systems ROS Statement: Those systems with pertinent positive or pertinent negative responses have been documented in the HPI. ROS Other: All systems not noted in ROS Statement are negative. Constitutional: Denies: fever ENT: Reports: congestion Respiratory: Reports: as per HPI, cough Cardiovascular: Denies: chest pain Endocrine: Denies: fatigue Gastrointestinal: Denies: abdominal pain Musculoskeletal: Reports: as per HPI, back pain Past Medical History Past Medical History: Hypertension Additional Past Medical History / Comment(s): gout History of Any Multi-Drug Resistant Organisms: None Reported Past Surgical History: No Surgical Hx Reported, Back Surgery Past Anesthesia/Blood Transfusion Reactions: No Reported Reaction Past Psychological History: Anxiety Smoking Status: Former smoker Past Alcohol Use History: Occasional Past Drug Use History: None Reported - Past Family History Father Family Medical History: Diabetes Mellitus General Exam Limitations: no limitations General appearance: alert, in no apparent distress Head exam: Present: normocephalic Eye exam: Present: normal appearance Neck exam: Present: normal inspection Respiratory exam: Present: normal lung sounds bilaterally Cardiovascular Exam: Present: regular rate, normal rhythm Expanded Peripheral pulses: 2+: Radial (R), Radial (L), Posterior Tibialis (R), Posterior Tibialis (L) GI/Abdominal exam: Present: soft. Absent: tenderness Extremities exam: Present: normal inspection. Absent: pedal edema, calf tenderness Back exam: Present: tenderness (Mild tenderness right parathoracic region around T9-T10.) Neurological exam: Present: alert Psychiatric exam: Present: normal affect, normal mood Skin exam: Present: normal color Course Vital Signs 06/22/24 06/22/24 07:29 08:29 Temperature 98.5 F 98.1 F Pulse Rate 87 73 Respiratory 20 16 Rate Blood Pressure 170/124 165/108 O2 Sat by Pulse 95 96 Oximetry EKG Findings - EKG Results: EKG: interpreted by ERMD (Left axis.), sinus rhythm, normal QRS, normal ST/T Medical Decision Making - Medical Decision Making Was pt. sent in by a medical professional or institution (Dr. PA, [employer], urgent care, hospital, or correction...) When possible be specific @ -No Did you speak to anyone other than the patient for history (EMS, parent, family, police, friend...)? What history was obtained from this source @ -No Did you review nursing and triage notes (agree or disagree)? Why? @ -I reviewed and agree with nursing and triage notes Were old charts reviewed (outside hosp., previous admission, EMS record, old EKG, old radiological studies, urgent care reports/EKG's, correction records)? Report findings @ -No old charts were reviewed Differential Diagnosis (chest pain, altered mental status, abdominal pain women, abdominal pain men, vaginal bleeding, weakness, fever, dyspnea, syncope, headache, dizziness, GI bleed, back pain, seizure, CVA, palpatations, mental health, musculoskeletal)? @ -Differential Back Pain: Strain, zoster, cauda equina syndrome, epidural abscess, vertebral osteomyelitis, discitis, fracture, subluxation, disc herniation, DJD, spinal stenosis, dissection, AAA, pancreatitis, peptic ulcer disease, pyelonephritis, kidney stone, this is not meant to be an all-inclusive list. EKG interpreted by me (3pts min.). @ -As above X-rays interpreted by me (1pt min.). @ -None done CT interpreted by me (1pt min.). @ -CT scan of the chest shows right lower segmental pulmonary embolism. There is also concern for infiltrate U/S interpreted by me (1pt. min.). @ -None done What testing was considered but not performed or refused? (CT, X-rays, U/S, labs)? Why? @ -None What meds were considered but not given or refused? Why? @ -None Did you discuss the management of the patient with other professionals (professionals i.e. DrAndreia, PA, [employer], lab, RT, psych nurse, social services designee, vessel captain, teacher, immigration services officer, case preparer and liner)? Give summary @ -Case discussed with Dr. Monet who will admit his patient. Case also discussed with practitioner Emi Hsu who will consult with pulmonary Was smoking cessation discussed for >3mins.? @ -No Was critical care preformed (if so, how long)? @ -33 minutes critical care time Were there social determinants of health that impacted care today? How? (Homelessness, low income, unemployed, alcoholism, drug addiction, transportation, low edu. Level, literacy, decrease access to med. care, intermediate, rehab)? @ -No Was there de-escalation of care discussed even if they declined (Discuss DNR or withdrawal of care, Hospice)? DNR status @ -No What co-morbidities impacted this encounter? (DM, HTN, Smoking, COPD, CAD, Cancer, CVA, ARF, Chemo, Hep., AIDS, mental health diagnosis, sleep apnea, morbid obesity)? @ -History of recent surgery. History of previous PE Was patient admitted / discharged? Hospital course, mention meds given and route, prescriptions, significant lab abnormalities, going to OR and other pertinent info. @ -Patient presents with right mid back discomfort and CT scan concerning for pulmonary embolism. Patient heparinized. Patient will be admitted with pulmonary consult. Patient reevaluated and updated. Admission orders written. Undiagnosed new problem with uncertain prognosis? @ -No Drug Therapy requiring intensive monitoring for toxicity (Heparin, Nitro, Insulin, Cardizem)? @ -Heparin drip Were any procedures done? @ -No Diagnosis/symptom? @ -Pulmonary embolism Acute, or Chronic, or Acute on Chronic? @ -Acute Uncomplicated (without systemic symptoms) or Complicated (systemic symptoms)? @ -Default Side effects of treatment? @ -No Exacerbation, Progression, or Severe Exacerbation? @ -No Poses a threat to life or bodily function? How? (Chest pain, [place], [place], pneumonia, PE, COPD, DKA, ARF, appy, cholecystitis, CVA, Diverticulitis, Homicidal, Suicidal, threat to staff... and all critical care pts) @ -No - Lab Data Result diagrams: 06/22/24 08:14 06/22/24 08:14 Lab Results 06/22/24 06/22/24 06/22/24 Range/Units 08:14 08:14 08:14 WBC 6.9 (3.8-10.6) k/uL RBC 5.43 (4.30-5.90) m/uL Hgb 17.1 (13.0-17.5) gm/dL Hct 51.5 (39.0-53.0) % MCV 94.9 (80.0-100.0) fL MCH 31.5 (25.0-35.0) pg MCHC 33.2 (31.0-37.0) g/dL RDW 14.2 (11.5-15.5) % Plt Count 162 (150-450) k/uL MPV 8.9 Neutrophils % 76 % Lymphocytes % 14 % Monocytes % 7 % Eosinophils % 2 % Basophils % 0 % Neutrophils # 5.2 (1.3-7.7) k/uL Lymphocytes # 1.0 (1.0-4.8) k/uL Monocytes # 0.5 (0-1.0) k/uL Eosinophils # 0.1 (0-0.7) k/uL Basophils # 0.0 (0-0.2) k/uL PT 11.5 (10.0-12.5) sec INR 1.0 (<1.2) APTT 23.6 (22.0-30.0) sec Sodium 137 (137-145) mmol/L Potassium 3.5 (3.5-5.1) mmol/L Chloride 103 (98-107) mmol/L Carbon Dioxide 25 (22-30) mmol/L Anion Gap 9 mmol/L BUN 13 (9-20) mg/dL Creatinine 0.81 (0.66-1.25) mg/dL Est GFR (CKD-EPI)AfAm >90 (>60 ml/min/1.73 sqM) Est GFR (CKD-EPI)NonAf >90 (>60 ml/min/1.73 sqM) Glucose 146 H (74-99) mg/dL Plasma Lactic Acid Todd (0.7-2.0) mmol/L Calcium 9.1 (8.4-10.2) mg/dL Magnesium 1.3 L (1.6-2.3) mg/dL Total Bilirubin 1.6 H (0.2-1.3) mg/dL AST 50 (17-59) U/L ALT 48 (4-49) U/L Alkaline Phosphatase 153 H (38-126) U/L Troponin I (0.000-0.034) ng/mL Total Protein 7.3 (6.3-8.2) g/dL Albumin 4.0 (3.5-5.0) g/dL Influenza Type A (PCR) (Not Detectd) Influenza Type B (PCR) (Not Detectd) RSV (PCR) (Not Detectd) SARS-CoV-2 (PCR) (Not Detectd) 06/22/24 06/22/24 06/22/24 Range/Units 08:14 08:14 08:14 WBC (3.8-10.6) k/uL RBC (4.30-5.90) m/uL Hgb (13.0-17.5) gm/dL Hct (39.0-53.0) % MCV (80.0-100.0) fL MCH (25.0-35.0) pg MCHC (31.0-37.0) g/dL RDW (11.5-15.5) % Plt Count (150-450) k/uL MPV Neutrophils % % Lymphocytes % % Monocytes % % Eosinophils % % Basophils % % Neutrophils # (1.3-7.7) k/uL Lymphocytes # (1.0-4.8) k/uL Monocytes # (0-1.0) k/uL Eosinophils # (0-0.7) k/uL Basophils # (0-0.2) k/uL PT (10.0-12.5) sec INR (<1.2) APTT (22.0-30.0) sec Sodium (137-145) mmol/L Potassium (3.5-5.1) mmol/L Chloride (98-107) mmol/L Carbon Dioxide (22-30) mmol/L Anion Gap mmol/L BUN (9-20) mg/dL Creatinine (0.66-1.25) mg/dL Est GFR (CKD-EPI)AfAm (>60 ml/min/1.73 sqM) Est GFR (CKD-EPI)NonAf (>60 ml/min/1.73 sqM) Glucose (74-99) mg/dL Plasma Lactic Acid Todd 1.2 (0.7-2.0) mmol/L Calcium (8.4-10.2) mg/dL Magnesium (1.6-2.3) mg/dL Total Bilirubin (0.2-1.3) mg/dL AST (17-59) U/L ALT (4-49) U/L Alkaline Phosphatase (38-126) U/L Troponin I <0.012 (0.000-0.034) ng/mL Total Protein (6.3-8.2) g/dL Albumin (3.5-5.0) g/dL Influenza Type A (PCR) Not Detected (Not Detectd) Influenza Type B (PCR) Not Detected (Not Detectd) RSV (PCR) Not Detected (Not Detectd) SARS-CoV-2 (PCR) Not Detected (Not Detectd) Critical Care Time Critical Care Time: Yes Disposition Clinical Impression: Pulmonary embolism Disposition: ADMITTED IP TO THIS [facility] Condition: Serious Is patient prescribed a controlled substance at d/c from ED?: No Referrals: Boni Monet MD [Primary Care Provider] - 1-2 days Time of Disposition: 10:08
[2024-06-22] MEDS: HYDROmorphone 1 MG/ML 1 ML SYRINGE IVP STA (08:15)
[2024-06-22 08:38] LABS: Partial Thromboplastin Time 23.6 sec (22.0-30.0); Prothrombin Time 11.5 sec (10.0-12.5)
[2024-06-22 08:41] LABS: ALT 48 U/L (4-49); AST 50 U/L (17-59); African American GFR (CKD) >90 (>60 ml/min/1.73 sqM); Alkaline Phosphatase 153 U/L (38-126); Anion Gap 9 mmol/L; Blood Urea Nitrogen 13 mg/dL (9-20); Calcium 9.1 mg/dL (8.4-10.2); Carbon Dioxide 25 mmol/L (22-30); Chloride 103 mmol/L (98-107); Glucose 146 mg/dL (74-99); Magnesium 1.3 mg/dL (1.6-2.3); Non-African American GFR(CKD) >90 (>60 ml/min/1.73 sqM); Potassium 3.5 mmol/L (3.5-5.1); Sodium 137 mmol/L (137-145); Total Bilirubin 1.6 mg/dL (0.2-1.3); Total Protein 7.3 g/dL (6.3-8.2)
[2024-06-22 08:45] LABS: Basophils % (A) 0 %; Eosinophils # (A) 0.1 k/uL (0-0.7); Eosinophils % (A) 2 %; HCT 51.5 % (39.0-53.0); HGB 17.1 gm/dL (13.0-17.5); Lymphocytes % (A) 14 %; MCH 31.5 pg (25.0-35.0); MCHC 33.2 g/dL (31.0-37.0); MCV 94.9 fL (80.0-100.0); Mean Platelet Volume 8.9; Monocytes # (A) 0.5 k/uL (0-1.0); Monocytes % (A) 7 %; Neutrophils # (A) 5.2 k/uL (1.3-7.7); Neutrophils % (A) 76 %; Platelet Count 162 k/uL (150-450); RBC 5.43 m/uL (4.30-5.90); RDW 14.2 % (11.5-15.5); WBC 6.9 k/uL (3.8-10.6)
[2024-06-22 09:04] LABS: Influenza A Not Detected (Not Detectd); Influenza B Not Detected (Not Detectd); RSV Not Detected (Not Detectd)
--- NOTE | 2024-06-22 09:14 | CT ---
EXAMINATION TYPE: CT angio chest DATE OF EXAM: 06/22/2024 9:03 AM COMPARISON: 08/09/2023 CLINICAL INDICATION: Male, 53 years old with history of debi, DEBI and back/chest pain, TECHNIQUE: Axial CT was performed with sagittal and coronal reformats. 3D reconstruction and/or MIP imaging was also performed on a separate workstation. IV CONTRAST: with IV Contrast, patient injected with 100ml mL of Isovue 370. (None if empty) CT DLP: 456.2 mGycm, Automated exposure control for dose reduction was used. FINDINGS: PULMONARY ARTERIES: There is a segmental /subsegmental pulmonary embolus noted in right basilar lower lobe. Previously 2 branches appear to have been affected with only a single branch at this time. Thi s appears to represent a new vessel. No additional pulmonary emboli seen. LUNGS: Small patchy infiltrate right lower lobe. No evidence for atelectasis. No pulmonary nodule o r mass is detected. Small right-sided pleural effusion is noted. Scattered calcified granulomas. MEDIASTINUM: Thoracic aorta is of normal caliber,however, evaluation is limited given timing of the contrast bolus. If there is concern for thoracic aortic pathology consider GAYLE. Correlate clinicall y . The heart is not enlarged. No evidence for mediastinal mass. No mediastinal lymph nodes greater than 1cm. HILAR STRUCTURES: No evidence for mass. No hilar lymph nodes greater than 1 cm. UPPER ABDOMEN: No significant abnormality is seen. IMPRESSION: 1. There is a segmental /subsegmental pulmonary embolus noted in right basilar lower lobe. Previousl y 2 branches appear to have been affected with only a single branch at this time. This appears to rep resent a new vessel. 2. Small patchy infiltrate right lower lobe and small right-sided pleural effusion also noted. [facility], , 06/22/2024 9:12 AM
[2024-06-22] MEDS: HEPARIN SOD,PORK IN 0.45% NACL 25,000 UNIT in 0.45% NACL 1 250ML.BAG IV SCH (09:36)
[2024-06-22] MEDS: HEPARIN SODIUM 1,000 UN/ML (10ML VL) IV ONE (09:39)
[2024-06-22] MEDS ORDERED: PNEUMONIA PROTOCOL UTILIZED 1 EACH MISC PO PRN (10:09)
[2024-06-22] MEDS ORDERED: NALOXONE 0.4 MG/ML 1 ML VIAL IV PRN (10:09)
[2024-06-22] MEDS: BISOPROLOL-HCTZ 2.5-6.25 MG 1 EACH TAB PO STA (10:10)
[2024-06-22] MEDS: MAGNESIUM OXIDE 400 MG TAB PO STA (10:10)
[2024-06-22 10:21] LABS: INR 1.1 (<1.2); Prothrombin Time 12.1 sec (10.0-12.5)
--- NOTE | 2024-06-22 10:30 | US ---
EXAMINATION TYPE: US venous doppler duplex LE BI DATE OF EXAM: 06/22/2024 9:44 AM COMPARISON: 08/20/19 CLINICAL INDICATION: Male, 53 years old with history of PE, r/o DVT; PE. Hx of DVT in right leg in . Not on blood thinners, Pain TECHNIQUE: The lower extremity deep venous system is examined utilizing real time linear array sonog dominga with graded compression, color doppler sonography, and spectral doppler. SIDE PERFORMED: Bilateral FINDINGS: VESSELS IMAGED: Common Femoral Vein Deep Femoral Vein Greater Saphenous Vein * Femoral Vein Popliteal Vein Small Saphenous Vein * Proximal Calf Veins (* superficial vessels) Right Leg: No evidence for DVT, Color Doppler imaging shows patency of the vessels. Spectral wavefor ms are within normal limits. Left Leg: No evidence for DVT, Color Doppler imaging shows patency of the vessels. Spectral waveform s are within normal limits. IMPRESSION: No ultrasound evidence for deep venous thrombosis. [facility], , 06/22/2024 10:28 AM
[2024-06-22] MEDS: AZITHROMYCIN 500 MG in SODIUM CHLORIDE 0.9% 250 ML IVPB STA (12:04)
--- NOTE | 2024-06-22 12:10 | P.CNPUL ---
History of Present Illness Consult date: 06/22/24 Requesting physician: Boni Monet Reason for consult: dyspnea, chest pain, hypoxemia, pulmonary embolism, abnormal CXR/CT Chief complaint: Back pain, shortness of breath, chest pain. History of present illness: Pulmonary consult dated June 22, 2024. 53-year-old male with a history of hypertension, GERD, recent back surgery March 2024, and a prior right lower extremity DVT, who was seen in the emergency department, room 31. He came in with complaints of chest pain, shortness of breath, back pain, particularly on the right side, and was evaluated and found to have a small subsegmental pulmonary embolism on the right. Chest x-ray suggest the possibility of a [place] hump, as was also seen on the CT scan. We ordered the echo of the heart, and Dopplers of the lower extremities. He has a history of hypertension and GERD. Not a particular good historian. He is on room air. He was started on IV heparin. He previously was on Eliquis, for his right DVT, but could not afford the medication, started taking it 5 mg every other day, rather than 5 mg twice a day. White count 6.9, hemoglobin 17.1, hematocrit 51.5, platelet count 162,000. Coagulation studies were normal. Sodium 137, potassium 3.5, chlorides 103, CO2 25, BUN 13, creatinine 0.81. Alkaline phosphatase was 153. Viral studies were negative. Lower extremity Dopplers were both negative. Chest CT shows a segment al/subsegmental pulmonary embolism, in the right base, with a small patchy infiltrate in the right lower lobe, which could represent a [place] hump. Review of Systems REVIEW OF SYSTEMS: Back pain. CONSTITUTIONAL: [Negative.] NEUROLOGIC: [ Negative.] HEENT: [ Negative.] CARDIAC: Chest pain. PULMONARY: Shortness of breath. GI: [Negative.] : [Negative.] RHEUMATOLOGIC: [ Negative.] IMMUNOLOGIC: [ Negative.] ENDOCRINE: [Negative. ] DERMATOLOGIC: [Negative.] Past Medical History Past Medical History: Hypertension Additional Past Medical History / Comment(s): gout History of Any Multi-Drug Resistant Organisms: None Reported Past Surgical History: No Surgical Hx Reported, Back Surgery Past Anesthesia/Blood Transfusion Reactions: No Reported Reaction Past Psychological History: Anxiety Smoking Status: Former smoker Past Alcohol Use History: Occasional Past Drug Use History: None Reported - Past Family History Father Family Medical History: Diabetes Mellitus Medications and Allergies Home Medications Medication Instructions Recorded Confirmed Type Bisoprolol-Hctz 2.5-6.25 mg [Ziac 1 tab PO DAILY 05/18/23 06/22/24 History 2.5-6.25 MG] Omeprazole Magnesium [PriLOSEC OTC] 20 mg PO DAILY PRN 05/18/23 06/22/24 History Multivitamins, Thera [Multivitamin 1 tab PO DAILY 08/09/23 06/22/24 History (formulary)] Allergies Allergy/AdvReac Type Severity Reaction Status Date / Time atenolol AdvReac PASSED OUT Verified 06/22/24 09:51 Physical Exam Osteopathic Statement: *. No significant issues noted on an osteopathic stru ctural exam other than those noted in the History and Physical/Consult. Vitals: Vital Signs Temp Pulse Resp BP Pulse Ox 06/22/24 10:00 98 F 63 16 158/94 96 06/22/24 08:29 98.1 F 73 16 165/108 96 06/22/24 07:29 98.5 F 87 20 170/124 95 Intake and Output 06/21/24 06/22/24 06/22/24 22:59 06:59 14:59 Other: Weight 96.615 kg No acute distress, oriented 3. HEENT examination is grossly unremarkable. Mucous membranes are moist. No oral lesions. Neck supple. Full range of motion. No adenopathy thyromegaly or neck vein distention. Cardiovascular examination reveals regular rhythm rate. S1-S2 normal. No S3 or S4. No discernible murmur noted. Lungs reveal clear breath sounds. Breath sounds are equal bilaterally. No adventitious lung sounds including wheezes rhonchi or crackles. Abdomen soft bowel sounds are heard. No masses or tenderness. Extremities are intact. No cyanosis clubbing or edema. Skin is without rash or lesion. Neurologic examination is brief but nonfocal. Results - Laboratory Findings CBC and BMP: 06/22/24 08:14 06/22/24 08:14 PT/INR, D-dimer PT 12.1 sec (10.0-12.5) 06/22/24 09:39 INR 1.1 (<1.2) 06/22/24 09:39 Abnormal lab findings: Abnormal Labs 06/22/24 08:14 Glucose 146 H Magnesium 1.3 L Total Bilirubin 1.6 H Alkaline Phosphatase 153 H - Diagnostic Findings CT scan - chest: image reviewed U/S of Legs: image reviewed Assessment and Plan Assessment: Segmental/subsegmental pulmonary embolism, right lower lobe, with possible pulmonary infarction, and [place] Hump. Prior history of right lower extremity DVT, noncompliant with Eliquis therapy. History of hypertension. History of gastroesophageal reflux disease. Previous back surgery, March 2024. Anticipated neck surgery, on July 01. Plan: Plan dated June 22, 2024. The patient is seen in the emergency department, room 31. The patient came into the hospital with complaints of shortness of breath, right lower back pain, and chest pain. He was evaluated, and found to have a pulmonary embolism, in the right lower lobe, small, segmental/subsegmental, and the possibility of pulmonary infarction, which may explain the patient's pain. He has a history of hypertension, gastroesophageal reflux disease, and back surgery in March, and is apparently scheduled to have repeat neck surgery, later this month. The patient was using Eliquis, 5 mg every other day, because he could not afford it every day. He does have a prior history of right lower extremity DVT. Dopplers on this admission were negative. Echocardiogram was ordered. Additional recommendations and suggestions are forthcoming. Prognosis is guarded. Time with Patient: Greater than 30
[2024-06-22] MEDS: HYDROmorphone 1 MG/ML 1 ML SYRINGE IVP PRN (17:42)
[2024-06-22] MEDS: FAMOTIDINE 20 MG TAB PO SCH (21:51)
[2024-06-23 02:04] LABS: Basophils % (A) 0 %; Eosinophils # (A) 0.1 k/uL (0-0.7); Eosinophils % (A) 3 %; HCT 46.2 % (39.0-53.0); HGB 14.8 gm/dL (13.0-17.5); Lymphocytes % (A) 19 %; MCH 30.6 pg (25.0-35.0); MCHC 32.1 g/dL (31.0-37.0); MCV 95.4 fL (80.0-100.0); Mean Platelet Volume 8.7; Monocytes # (A) 0.3 k/uL (0-1.0); Monocytes % (A) 6 %; Neutrophils # (A) 3.6 k/uL (1.3-7.7); Neutrophils % (A) 70 %; Platelet Count 113 k/uL (150-450); RBC 4.84 m/uL (4.30-5.90); RDW 13.9 % (11.5-15.5); WBC 5.2 k/uL (3.8-10.6)
--- NOTE | 2024-06-23 07:19 | XR ---
EXAMINATION TYPE: XR chest 2V DATE OF EXAM: 06/23/2024 6:37 AM COMPARISON: Chest radiographs from 06/02/2024 CLINICAL INDICATION: Male, 53 years old with history of pneumonia; [facility] TECHNIQUE: XR chest 2V Frontal and lateral views of the chest. FINDINGS: Lungs/Pleura: There is flattening of the diaphragm with increased lucency of the lungs. No evidence o f pneumothorax, pleural effusion or focal consolidation. Pulmonary vascularity: Unremarkable. Heart/mediastinum: Cardiomediastinal silhouette is unremarkable. Musculoskeletal: No acute osseous pathology. There is lower spine fixation hardware is present. Other findings: None IMPRESSION: 1. No acute cardiopulmonary disease process. 2. COPD changes. [facility], , 06/23/2024 7:16 AM
[2024-06-23] MEDS: AZITHROMYCIN 500 MG TAB PO SCH (08:31)
[2024-06-23] MEDS: MULTIVITAMINS, THERA 1 EACH TAB PO SCH (08:32)
[2024-06-23] MEDS: BISOPROLOL-HCTZ 2.5-6.25 MG 1 EACH TAB PO SCH (08:34)
--- NOTE | 2024-06-23 08:53 | P.HPIM ---
History of Present Illness H&P Date: 06/23/24 This is a 53-year-old male who presented to the emergency department with complaints of chest pain, shortness of breath and back pain who was found to have a pulmonary embolism. Patient has a history of hypertension, GERD, recent back surgery in March 2024, and a history of a DVT. Patient has been on Eliquis, however he does not have insurance and has been trying to make his Eliquis doses last. He is reportedly taking it every other day. Patient seen this morning laying in bed resting comfortably. He reports his pain is improved. He reportedly is supposed to undergo a neck surgery in a few weeks. Review of Systems Constitutional: Denies chills, Denies fever Cardiovascular: Reports chest pain, Reports dyspnea on exertion Respiratory: Reports dyspnea, Denies cough Musculoskeletal: Denies arm numbness/tingling, Denies leg numbness/tingling Neurological: Denies headaches, Denies weakness Past Medical History Past Medical History: Hypertension Additional Past Medical History / Comment(s): gout History of Any Multi-Drug Resistant Organisms: None Reported Past Surgical History: No Surgical Hx Reported, Back Surgery Past Anesthesia/Blood Transfusion Reactions: No Reported Reaction Past Psychological History: Anxiety Smoking Status: Former smoker Past Alcohol Use History: Occasional Past Drug Use History: None Reported - Past Family History Father Family Medical History: Diabetes Mellitus Medications and Allergies Home Medications Medication Instructions Recorded Confirmed Type Bisoprolol-Hctz 2.5-6.25 mg [Ziac 1 tab PO DAILY 05/18/23 06/22/24 History 2.5-6.25 MG] Omeprazole Magnesium [PriLOSEC OTC] 20 mg PO DAILY PRN 05/18/23 06/22/24 History Multivitamins, Thera [Multivitamin 1 tab PO DAILY 08/09/23 06/22/24 History (formulary)] Allergies Allergy/AdvReac Type Severity Reaction Status Date / Time atenolol AdvReac PASSED OUT Verified 06/22/24 09:51 Physical Exam Vitals: Vital Signs Temp Pulse Resp BP Pulse Ox 06/23/24 05:44 98.8 F 74 16 06/22/24 22:00 92 18 132/88 95 06/22/24 18:54 79 16 143/96 96 06/22/24 17:00 76 18 137/89 97 06/22/24 13:48 64 16 153/104 95 06/22/24 10:00 98 F 63 16 158/94 96 Intake and Output 06/22/24 06/23/24 06/23/24 22:59 06:59 14:59 Intake Total 141.737 86.71 Balance 141.737 86.71 Intake: Intake, IV Titration 141.737 86.71 Amount Heparin Sod,Pork in 0.45% 141.737 86.71 NaCl 25,000 unit In 0.45 % NaCl 1 250ml.bag @ 18 UNITS/KG/HR 17.391 mls/hr IV .[id number] [facility] Rx#: [id number] - Constitutional General appearance: cooperative, no acute distress - EENT Eyes: PERRLA - Neck Neck: no lymphadenopathy, normal ROM, no rigidity - Respiratory Respiratory: bilateral: diminished - Cardiovascular Heart sounds: normal: S1, S2 - Gastrointestinal General gastrointestinal: soft, no tenderness - Integumentary Integumentary: normal, normal turgor - Psychiatric Psychiatric: A&O x's 3 Results CBC & Chem 7: 06/23/24 01:37 06/22/24 08:14 Labs: Abnormal Lab Results - Last 24 Hours (Table) 06/22/24 06/23/24 06/23/24 Range/Units 16:12 01:37 01:37 Plt Count 113 L (150-450) k/uL APTT 117.7 H* 46.4 H (22.0-30.0) sec Assessment and Plan (1) GERD (gastroesophageal reflux disease) Current Visit: Yes Status: Acute Code(s): K21.9 - GASTRO-ESOPHAGEAL REFLUX DISEASE WITHOUT ESOPHAGITIS SNOMED Code(s): 055671696 (2) History of DVT (deep vein thrombosis) Current Visit: Yes Status: Acute Code(s): Z86.718 - PERSONAL HISTORY OF OTHER VENOUS THROMBOSIS AND EMBOLISM SNOMED Code(s): 904744855 (3) Pulmonary embolism Current Visit: Yes Status: Acute Code(s): I26.99 - OTHER PULMONARY EMBOLISM WITHOUT ACUTE COR PULMONALE SNOMED Code(s): 21883096 (4) Hypertension Current Visit: No Status: Acute Code(s): I10 - ESSENTIAL (PRIMARY) HYPERT ENSION SNOMED Code(s): 49507055 (5) Lumbar spinal stenosis Current Visit: No Status: Acute Code(s): M48.061 - SPINAL STENOSIS, LUMBAR REGION WITHOUT NEUROGENIC GIANNI SNOMED Code(s): 68455661 Plan: Appreciate pulmonary recommendations. Check CBC and CMP in the morning. Patient seen and evaluated by nurse practitioner, physician in agreement with plan.
[2024-06-23 10:26] LABS: INR 1.1 (<1.2); Prothrombin Time 11.9 sec (10.0-12.5)
[2024-06-23 11:02] LABS: ALT 34 U/L (4-49); AST 37 U/L (17-59); African American GFR (CKD) >90 (>60 ml/min/1.73 sqM); Albumin 3.2 g/dL (3.5-5.0); Alkaline Phosphatase 142 U/L (38-126); Anion Gap 8 mmol/L; Blood Urea Nitrogen 10 mg/dL (9-20); Calcium 8.6 mg/dL (8.4-10.2); Carbon Dioxide 27 mmol/L (22-30); Chloride 99 mmol/L (98-107); Glucose 156 mg/dL (74-99); Non-African American GFR(CKD) >90 (>60 ml/min/1.73 sqM); Potassium 3.3 mmol/L (3.5-5.1); Sodium 134 mmol/L (137-145); Total Protein 6.2 g/dL (6.3-8.2)
--- NOTE | 2024-06-23 13:37 | P.PN ---
Subjective Progress Note Date: 06/23/24 53-year-old male with a history of hypertension, GERD, recent back surgery March 2024, and a prior right lower extremity DVT, who was seen in the emergency department, room 31. He came in with complaints of chest pain, shortness of breath, back pain, particularly on the right side, and was evaluated and found to have a small subsegmental pulmonary embolism on the right. Chest x-ray suggest the possibility of a [place] hump, as was also seen on the CT scan. We ordered the echo of the heart, and Dopplers of the lower extremities. He has a history of hypertension and GERD. Not a particular good historian. He is on room air. He was started on IV heparin. He previously was on Eliquis, for his right DVT, but could not afford the medication, started taking it 5 mg every other day, rather than 5 mg twice a day. White count 6.9, hemoglobin 17.1, hematocrit 51.5, platelet count 162,000. Coagulation studies were normal. Sodium 137, potassium 3.5, chlorides 103, CO2 25, BUN 13, creatinine 0.81. Alkaline phosphatase was 153. Viral studies were negative. Lower extremity Dopplers were both negative. Chest CT shows a segmental/subsegmental pulmonary embolism, in the right base, with a small patchy infiltrate in the right lower lobe, which could represent a [place] hump. The patient is seen today June 23, 2024 in follow-up in the emergency department. He is currently sitting up on a stretcher. Awake and alert in no acute distress. Feeling better today compared to yesterday. Less right sided chest discomfort. He is maintaining good O2 saturations in the 90s on room air. Dopplers were negative for DVT. He remains on a heparin drip. Procalcitonin was negative at 0.13. White count 5.2. Hemoglobin 14.8. Platelets 113. Sodium 134. Potassium 3.3. Bicarb 27. BUN 10. Creatinine 0.72. Glucose 156. He is currently on ceftriaxone and azithromycin. He will be initiated on warfarin as he cannot afford Eliquis. Objective - Vital Signs Vital signs: Vital Signs Temp 99.1 F 06/23/24 07:55 Pulse 80 06/23/24 07:55 Resp 15 06/23/24 07:55 BP 138/95 06/23/24 07:55 Pulse Ox 94 L 06/23/24 07:55 FiO2 Intake & Output 06/22/24 06/23/24 06/23/24 18:59 06:59 18:59 Intake Total 141.737 86.71 Balance 141.737 86.71 Weight 96.615 kg Intake: Intake, IV Titration 141.737 86.71 Amount Heparin Sod,Pork in 0.45% 141.737 86.71 NaCl 25,000 unit In 0.45 % NaCl 1 250ml.bag @ 18 UNITS/KG/HR 17.391 mls/hr IV .[id number] [facility] Rx#: [id number] - Exam GENERAL EXAM: Alert, disheveled 53-year-old male, on room air, comfortable in no apparent distress. HEAD: Normocephalic. EYES: Normal reaction of pupils, equal size. NOSE: Clear with pink turbinates. THROAT: No erythema or exudates. NECK: No masses, no JVD. CHEST: No chest wall deformity. LUNGS: Equal air entry with no crackles, wheeze, rhonchi or dullness. CVS: S1 and S2 normal with no audible murmur, regular rhythm. ABDOMEN: No hepatosplenomegaly, normal bowel sounds, no guarding or rigidity. SPINE: No scoliosis or deformity SKIN: No rashes CENTRAL NERVOUS SYSTEM: No focal deficits, tone is normal in all 4 extremities. EXTREMITIES: There is no peripheral edema. No clubbing, no cyanosis. Peripheral pulses are intact. - Labs CBC & Chem 7: 06/23/24 01:37 06/23/24 09:32 Labs: Abnormal Lab Results - Last 24 Hours (Table) 06/22/24 06/23/24 06/23/24 Range/Units 16:12 01:37 01:37 Plt Count 113 L (150-450) k/uL APTT 117.7 H* 46.4 H (22.0-30.0) sec Sodium (137-145) mmol/L Potassium (3.5-5.1) mmol/L Glucose (74-99) mg/dL Alkaline Phosphatase (38-126) U/L Total Protein (6.3-8.2) g/dL Albumin (3.5-5.0) g/dL 06/23/24 06/23/24 Range/Units 09:32 09:32 Plt Count (150-450) k/uL APTT 44.1 H (22.0-30.0) sec Sodium 134 L (137-145) mmol/L Potassium 3.3 L (3.5-5.1) mmol/L Glucose 156 H (74-99) mg/dL Alkaline Phosphatase 142 H (38-126) U/L Total Protein 6.2 L (6.3-8.2) g/dL Albumin 3.2 L (3.5-5.0) g/dL Assessment and Plan Assessment: Segmental/subsegmental pulmonary embolism, right lower lobe, with possible pulmonary infarction, and [place] Hump Prior history of right lower extremity DVT, noncompliant with Eliquis therapy History of hypertension History of gastroesophageal reflux disease Previous back surgery, March 2024 Anticipated neck surgery, on July 01 Plan: The patient was seen and evaluated Labs and medications reviewed Currently stable and on room air Unable to afford Eliquis Continue heparin drip for now Initiate warfarin, pharmacy to dose Will continue to follow I have personally seen and examined the patient, performed the documentation and the assessment and plan as written. Number of minutes spent on the visit: 10 Dictation was produced using [employer] dictation software. Please excuse any grammatical, word or spelling errors.
[2024-06-23] MEDS ORDERED: CALCIUM CARBONATE 500 MG CHEWABLE PO PRN (16:08)
[2024-06-23] MEDS: WARFARIN 5 MG TAB PO ONE (17:26)
--- NOTE | 2024-06-23 18:19 | CA ---
Transthoracic Echo Report Name: Richard Hope Age: 53 Gender: M : 1970 Exam Date: 06/23/2024 13:59 Exam Location: [facility] Ht (in): 73 Wt (lb): 213 Ordering Physician: Yesica Hsu Attending/Referring Phys: [employer] Operator Helper Meenakshi Nava RDCS Procedure CPT: Indications: PE Cardiac Hx: Technical Quality: Fair Contrast 1: Total Dose (mL): Contrast 2: Total Dose (mL): MEASUREMENTS (Male / Female) Normal Values 2D ECHO LV Diastolic Diameter PLAX 4.2 cm 4.2 - 5.9 / 3.9 - 5.3 cm LV Systolic Diameter PLAX 2.8 cm IVS Diastolic Thickness 1.3 cm 0.6 - 1.0 / 0.6 - 0.9 cm LVPW Diastolic Thickness 1.2 cm 0.6 - 1.0 / 0.6 - 0.9 cm LV Relative Wall Thickness 0.6 RV Internal Dim ED PLAX 3.2 cm LA Systolic Diameter LX 3.6 cm 3.0 - 4.0 / 2.7 - 3.8 cm LV Diastolic Volume MOD BP 100.4 cm??? 67 - 155 / 56 - 104 cm??? LV Systolic Volume MOD BP 34.3 cm??? 22 - 58 / 19 - 49 cm??? LV Ejection Fraction MOD BP 65.9 % >= 55 % LV Cardiac Index MOD BP 2089.0 cm???/min???m??? LV Diastolic Volume MOD 4C 90.9 cm??? LV Systolic Volume MOD 4C 44.1 cm??? LV Ejection Fraction MOD 4C 51.5 % LV Cardiac Index MOD 4C 1477.3 cm???/min???m??? LV Diastolic Length 4C 9.1 cm LV Systolic Length 4C 7.8 cm LV Diastolic Volume MOD 2C 110.4 cm??? LV Systolic Volume MOD 2C 26.8 cm??? LV Ejection Fraction MOD 2C 75.7 % LV Cardiac Index MOD 2C 2641.6 cm???/min???m??? LV Diastolic Length 2C 9.0 cm LV Systolic Length 2C 7.9 cm M-MODE Aortic Root Diameter MM 2.9 cm DOPPLER AV Peak Velocity 153.4 cm/s AV Peak Gradient 9.4 mmHg Mitral E Point Velocity 57.9 cm/s Mitral A Point Velocity 71.5 cm/s Mitral E to A Ratio 0.8 MV Deceleration Time 215.0 ms FINDINGS Left Ventricle Left ventricular ejection fraction is estimated at 55-60 %. Left ventricular cavity size normal. Mildly increased left ventricular wall thickness. Normal left ventricular systolic function with no obvious regional wall motion abnormalities. Right Ventricle Normal right ventricular size. Unable to estimate the right ventricular systolic pressure. Right Atrium Normal right atrial size. No right atrial thrombus or mass seen. Left Atrium Normal left atrial size. No left atrial thrombus or mass present. Mitral Valve Structurally normal mitral valve. No mitral stenosis, regurgitation or prolapse. Aortic Valve Trileaflet aortic valve. No aortic stenosis.aortic valve sclerosis. Tricuspid Valve Structurally normal tricuspid valve. No tricuspid stenosis, regurgitation or prolapse. Pulmonic Valve Pulmonic valve not well visualized. . No pulmonic regurgitation. Pericardium No pericardial effusion. Aorta Normal size aortic root and proximal ascending aorta. CONCLUSIONS Technically difficult study. Normal left ventricular size and systolic function Very limited Doppler study Previewed by: Dr. Cole Wellington MD (Electronically Signed) Final Date: 23 June 2024 18:19
[2024-06-24] MEDS: HYDROmorphone 0.5 MG/0.5 ML SYRINGE IVP PRN (04:04)
[2024-06-24 08:23] LABS: HCT 45.8 % (39.0-53.0); MCH 30.8 pg (25.0-35.0); MCHC 32.7 g/dL (31.0-37.0); MCV 94.4 fL (80.0-100.0); Platelet Count 136 k/uL (150-450); RBC 4.86 m/uL (4.30-5.90); RDW 14.1 % (11.5-15.5); WBC 6.5 k/uL (3.8-10.6)
[2024-06-24 08:31] LABS: INR 1.1 (<1.2); Prothrombin Time 11.8 sec (10.0-12.5)
--- NOTE | 2024-06-24 08:51 | P.PN ---
Subjective Principal diagnosis: pulmonary embolus. This 63-year-old white male who has recurrent venous thromboembolism. Due to cost containment issues, [facility] We are working on appropriate coverage but he is now being started on warfarin from therapy. Objective - Vital Signs Vital signs: Vital Signs Temp 98.1 F 06/24/24 04:00 Pulse 78 06/24/24 04:00 Resp 17 06/24/24 04:00 BP 131/85 06/24/24 04:00 Pulse Ox 95 06/24/24 04:00 FiO2 Intake & Output 06/23/24 06/24/24 06/24/24 18:59 06:59 18:59 Intake Total 430 35.747 Balance 430 35.747 Weight 96.615 kg 90.5 kg Intake: Intake, IV Titration 250 35.747 Amount Heparin Sod,Pork in 0.45% 250 35.747 NaCl 25,000 unit In 0.45 % NaCl 1 250ml.bag @ 18 UNITS/KG/HR 17.391 mls/hr IV .[id number] [facility] Rx#: [id number] Oral 180 Other: Voiding Method Toilet # Voids 1 2 - Constitutional General appearance: Present: average body habitus, cooperative - EENT Eyes: Absent: abnormal pupil - Neck Neck: Absent: lymphadenopathy - Respiratory Respiratory: bilateral: diminished - Cardiovascular Rhythm: regular Heart sounds: normal: S1, S2 Abnormal Heart Sounds: Absent: S3 Gallop - Gastrointestinal General gastrointestinal: Present: soft. Absent: tenderness - Labs CBC & Chem 7: 06/24/24 08:02 06/23/24 09:32 Labs: Abnormal Lab Results - Last 24 Hours (Table) 06/23/24 06/23/24 06/24/24 Range/Units 09:32 09:32 08:02 Plt Count 136 L (150-450) k/uL APTT 44.1 H (22.0-30.0) sec Sodium 134 L (137-145) mmol/L Potassium 3.3 L (3.5-5.1) mmol/L Glucose 156 H (74-99) mg/dL Alkaline Phosphatase 142 H (38-126) U/L Total Protein 6.2 L (6.3-8.2) g/dL Albumin 3.2 L (3.5-5.0) g/dL 06/24/24 Range/Units 08:02 Plt Count (150-450) k/uL APTT 46.0 H (22.0-30.0) sec Sodium (137-145) mmol/L Potassium (3.5-5.1) mmol/L Glucose (74-99) mg/dL Alkaline Phosphatase (38-126) U/L Total Protein (6.3-8.2) g/dL Albumin (3.5-5.0) g/dL Microbiology - Last 24 Hours (Table) 06/22/24 10:23 Blood Culture - Preliminary Blood Assessment and Plan (1) GERD (gastroesophageal reflux disease) Current Visit: Yes Status: Acute Code(s): K21.9 - GASTRO-ESOPHAGEAL REFLUX DISEASE WITHOUT ESOPHAGITIS SNOMED Code(s): 929866161 (2) Pulmonary embolism Current Visit: Yes Status: Acute Code(s): I26.99 - OTHER PULMONARY EMBOLISM WITHOUT ACUTE COR PULMONALE SNOMED Code(s): 43573052 (3) Hypertension Current Visit: No Status: Acute Code(s): I10 - ESSENTIAL (PRIMARY) HYPERTENSION SNOMED Code(s): 31366251 (4) Lumbar spinal stenosis Current Visit: No Status: Acute Code(s): M48.061 - SPINAL STENOSIS, LUMBAR REGION WITHOUT NEUROGENIC GIANNI SNOMED Code(s): 20506706 Plan: Continue appropriate antibiotic coagulation treatment per pulmonology. Check CBC with PT/INR in the a.m. We'll continue to follow. Time with Patient: Less than 30
[2024-06-24 09:23] LABS: INR 1.1 (<1.2); Prothrombin Time 11.8 sec (10.0-12.5)
[2024-06-24 09:33] LABS: ALT 32 U/L (4-49); AST 38 U/L (17-59); African American GFR (CKD) >90 (>60 ml/min/1.73 sqM); Albumin 3.3 g/dL (3.5-5.0); Alkaline Phosphatase 138 U/L (38-126); Anion Gap 9 mmol/L; Blood Urea Nitrogen 9 mg/dL (9-20); Calcium 8.7 mg/dL (8.4-10.2); Carbon Dioxide 25 mmol/L (22-30); Chloride 100 mmol/L (98-107); Glucose 149 mg/dL (74-99); Non-African American GFR(CKD) >90 (>60 ml/min/1.73 sqM); Potassium 3.3 mmol/L (3.5-5.1); Sodium 134 mmol/L (137-145); Total Bilirubin 0.9 mg/dL (0.2-1.3); Total Protein 6.4 g/dL (6.3-8.2)
--- NOTE | 2024-06-24 13:39 | P.PN ---
Subjective Progress Note Date: 06/24/24 Principal diagnosis: Shortness of breath. 53-year-old male with a history of hypertension, GERD, recent back surgery March 2024, and a prior right lower extremity DVT, who was seen in the emergency department, room 31. He came in with complaints of chest pain, shortness of breath, back pain, particularly on the right side, and was evaluated and found to have a small subsegmental pulmonary embolism on the right. Chest x-ray suggest the possibility of a [place] hump, as was also seen on the CT scan. We ordered the echo of the heart, and Dopplers of the lower extremities. He has a history of hypertension and GERD. Not a particular good historian. He is on room air. He was started on IV heparin. He previously was on Eliquis, for his right DVT, but could not afford the medication, started taking it 5 mg every other day, rather than 5 mg twice a day. White count 6.9, hemoglobin 17.1, hematocrit 51.5, platelet count 162,000. Coagulation studies were normal. Sodium 137, potassium 3.5, chlorides 103, CO2 25, BUN 13, creatinine 0.81. Alkaline phosphatase was 153. Viral studies were negative. Lower extremity Dopplers were both negative. Chest CT shows a segmental/subsegmental pulmonary embolism, in the right base, with a small patchy infiltrate in the right lower lobe, which could represent a [place] hump. The patient is seen today June 23, 2024 in follow-up in the emergency department. He is currently sitting up on a stretcher. Awake and alert in no acute distress. Feeling better today compared to yesterday. Less right sided chest discomfort. He is maintaining good O2 saturations in the 90s on room air. Dopplers were negative for DVT. He remains on a heparin drip. Procalcitonin was negative at 0.13. White count 5.2. Hemoglobin 14.8. Platelets 113. Sodium 134. Potassium 3.3. Bicarb 27. BUN 10. Creatinine 0.72. Glucose 156. He is currently on ceftriaxone and azithromycin. He will be initiated on warfarin as he cannot afford Eliquis. Progress note dated June 24, 2024. 53-year-old male admitted with a diagnosis of pulmonary embolism. The patient had a previous DVT in the right leg. The patient apparently was supposed to be on Eliquis, 5 mg twice a day, but because of the expense, was taking 5 mg every other day. The patient was seen in the emergency department, and started on IV heparin. He admits freely he cannot afford Eliquis, so in its place, we will recommend Coumadin. Will have the pharmacy dosed the patient, and monitor the PT and INR. Clinically, the patient is stable. He is on room air. He is not receiving any IV fluids, only receiving IV heparin at the current time. He is feeling much better. Current labs include a white count of 6.5, hemoglobin 15, hematocrit 45.8, and a platelet count of 136,000. The patient's INR is 1.1. Sodium 134, potassium 3.3, chlorides 100, CO2 25, BUN 9, creatinine 0.72. Albumin is 3.3. Objective - Vital Signs Vital signs: Vital Signs Temp 98.1 F 06/24/24 12:00 Pulse 66 06/24/24 12:00 Resp 16 06/24/24 12:00 BP 135/84 06/24/24 12:00 Pulse Ox 95 06/24/24 12:00 FiO2 Intake & Output 06/23/24 06/24/24 06/24/24 18:59 06:59 18:59 Intake Total 430 393.747 Balance 430 393.747 Weight 96.615 kg 90.5 kg Intake: Intake, IV Titration 250 35.747 Amount Heparin Sod,Pork in 0.45% 250 35.747 NaCl 25,000 unit In 0.45 % NaCl 1 250ml.bag @ 18 UNITS/KG/HR 17.391 mls/hr IV .[id number] [facility] Rx#: [id number] Oral 180 358 Other: Voiding Method Toilet Toilet # Voids 1 2 1 - Exam No acute distress, oriented 3. HEENT examination is grossly unremarkable. Mucous membranes are moist. No oral lesions. Neck supple. Full range of motion. No adenopathy thyromegaly or neck vein distention. Cardiovascular examination reveals regular rhythm rate. S1-S2 normal. No S3 or S4. No discernible murmur noted. Lungs reveal clear breath sounds. Breath sounds are equal bilaterally. No adventitious lung sounds including wheezes rhonchi or crackles. Abdomen soft bowel sounds are heard. No masses or tenderness. Extremities are intact. No cyanosis clubbing or edema. Skin is without rash or lesion. Neurologic examination is brief but nonfocal. - Labs CBC & Chem 7: 06/24/24 08:02 06/24/24 08:02 Labs: Abnormal Lab Results - Last 24 Hours (Table) 06/24/24 06/24/24 06/24/24 Range/Units 08:02 08:02 08:02 Plt Count 136 L (150-450) k/uL APTT 46.0 H (22.0-30.0) sec Sodium 134 L (137-145) mmol/L Potassium 3.3 L (3.5-5.1) mmol/L Glucose 149 H (74-99) mg/dL Alkaline Phosphatase 138 H (38-126) U/L Albumin 3.3 L (3.5-5.0) g/dL Microbiology - Last 24 Hours (Table) 06/22/24 10:23 Blood Culture - Preliminary Blood Assessment and Plan Assessment: Segmental/subsegmental pulmonary embolism, right lower lobe, with possible pulmonary infarction, and [place] Hump. Prior history of right lower extremity DVT, noncompliant with Eliquis therapy. History of hypertension. History of gastroesophageal reflux disease. Previous back surgery, March 2024. Anticipated neck surgery, on July 01. Plan: Plan dated June 22, 2024. The patient is seen in the emergency department, room 31. The patient came into the hospital with complaints of shortness of breath, right lower back pain, and chest pain. He was evaluated, and found to have a pulmonary embolism, in the right lower lobe, small, segmental/subsegmental, and the possibility of pulmonary infarction, which may explain the patient's pain. He has a history of hypertension, gastroesophageal reflux disease, and back surgery in 2023, March, and is apparently scheduled to have repeat neck surgery, later this month. The patient was using Eliquis, 5 mg every other day, because he could not afford it every day. He does have a prior history of right lower extremity DVT. Dopplers on this admission were negative. Echocardiogram was ordered. Additional recommendations and suggestions are forthcoming. Prognosis is gua rded. Plan dated June 24, 2024. The patient will be started on Coumadin. Pharmacy will dose. The patient continues on IV heparin. Clinically, he is asymptomatic at this time. He had a very small segmental/subsegmental pulmonary embolism involving the right lower lobe. The patient may have sustained a pulmonary infarction as well, because he came up with right back pain. CT scan suggested [place] hump. Labs, x-rays, and medications are reviewed. I recommend no additional surgery at this time for at least 3 months. He will need follow-up in the office. Prognosis is guarded. Dictation was produced using [employer] software. Please excuse any grammatical, word or spelling errors. Time with Patient: Less than 30
[2024-06-24] MEDS: WARFARIN 5 MG TAB PO ONE (17:27)
[2024-06-24] MEDS: traMADol 50 MG TAB PO PRN (23:08)
[2024-06-25 08:17] LABS: HCT 48.7 % (39.0-53.0); MCH 31.8 pg (25.0-35.0); MCHC 32.9 g/dL (31.0-37.0); MCV 96.7 fL (80.0-100.0); Mean Platelet Volume 8.7; Platelet Count 160 k/uL (150-450); RBC 5.03 m/uL (4.30-5.90); RDW 13.8 % (11.5-15.5); WBC 8.6 k/uL (3.8-10.6)
[2024-06-25] MEDS ORDERED: Potassium Replacement Protocol 1 EACH MISC MISCELLANE PRN (08:24)
[2024-06-25 08:32] LABS: INR 1.1 (<1.2); Partial Thromboplastin Time 35.4 sec (22.0-30.0)
--- NOTE | 2024-06-25 08:32 | P.PN ---
Subjective Progress Note Date: 06/25/24 This is a 53-year-old male who presented to the emergency department with complaints of chest pain, shortness of breath and back pain who was found to have a pulmonary embolism. Patient has a history of hypertension, GERD, recent back surgery in March 2024, and a history of a DVT. Patient has been on Eliquis, however he does not have insurance and has been trying to make his Eliquis doses last. He is reportedly taking it every other day. Patient seen this morning laying in bed resting comfortably. He reports his pain is improved. He reportedly is supposed to undergo a neck surgery in a few weeks. 06/25/2024 Patient seen this morning lying in bed resting comfortably. He started Coumadin yesterday, INR is not back yet today at time of dictation. Patient reports some left foot and toe pain, thinks he may be having a gout attack. He does report a prior history of gout. Objective - Vital Signs Vital signs: Vital Signs Temp 98.2 F 06/25/24 08:00 Pulse 78 06/25/24 08:00 Resp 16 06/25/24 08:00 BP 145/93 06/25/24 08:00 Pulse Ox 96 06/25/24 08:00 FiO2 Intake & Output 06/24/24 06/25/24 06/25/24 18:59 06:59 18:59 Intake Total 1155.747 210.617 Balance 1155.747 210.617 Weight 91 kg Intake: Intake, IV Titration 35.747 210.617 Amount Heparin Sod,Pork in 0.45% 35.747 210.617 NaCl 25,000 unit In 0.45 % NaCl 1 250ml.bag @ 18 UNITS/KG/HR 17.391 mls/hr IV .[id number] [facility] Rx#: [id number] Oral 1120 Other: Voiding Method Toilet Toilet # Voids 2 2 - Constitutional General appearance: Present: cooperative, no acute distress - EENT Eyes: Present: PERRLA - Neck Neck: Present: normal ROM. Absent: lymphadenopathy, rigidity - Respiratory Respiratory: bilateral: diminished - Cardiovascular Heart sounds: normal: S1, S2 - Gastrointestinal General gastrointestinal: Present: soft. Absent: tenderness - Integumentary Integumentary: Present: normal, normal turgor - Psychiatric Psychiatric: Present: A&O x's 3 - Labs CBC & Chem 7: 06/25/24 07:42 06/24/24 08:02 Labs: Abnormal Lab Results - Last 24 Hours (Table) 06/24/24 06/24/24 Range/Units 08:02 08:02 APTT 46.0 H (22.0-30.0) sec Sodium 134 L (137-145) mmol/L Potassium 3.3 L (3.5-5.1) mmol/L Glucose 149 H (74-99) mg/dL Alkaline Phosphatase 138 H (38-126) U/L Albumin 3.3 L (3.5-5.0) g/dL Microbiology - Last 24 Hours (Table) 06/22/24 10:23 Blood Culture - Preliminary Blood Assessment and Plan (1) GERD (gastroesophageal reflux disease) Current Visit: Yes Status: Acute Code(s): K21.9 - GASTRO-ESOPHAGEAL REFLUX DISEASE WITHOUT ESOPHAGITIS SNOMED Code(s): 675101745 (2) History of DVT (deep vein thrombosis) Current Visit: Yes Status: Acute Code(s): Z86.718 - PERSONAL HISTORY OF OTHER VENOUS THROMBOSIS AND EMBOLISM SNOMED Code(s): 115729535 (3) Pulmonary embolism Current Visit: Yes Status: Acute Code(s): I26.99 - OTHER PULMONARY EMBOLISM WITHOUT ACUTE COR PULMONALE SNOMED Code(s): 95230378 (4) Hypertension Current Visit: No Status: Acute Code(s): I10 - ESSENTIAL (PRIMARY) HYPERTENSION SNOMED Code(s): 83173427 (5) Lumbar spinal stenosis Current Visit: No Status: Acute Code(s): M48.061 - SPINAL STENOSIS, LUMBAR REGION WITHOUT NEUROGENIC GIANNI SNOMED Code(s): 20856626 (6) History of gout Current Visit: Yes Status: Acute Code(s): Z87.39 - PERSONAL HISTORY OF DISEASES OF THE MS SYS AND CONN TISS SNOMED Code(s): 221413104 Plan: Appreciate pulmonary recommendations. Replace potassium and recheck CMP in the morning. Will order uric acid level. Check INR in the morning. Patient seen and evaluated by nurse practitioner, physician in agreement with plan.
[2024-06-25 08:43] LABS: ALT 39 U/L (4-49); AST 48 U/L (17-59); African American GFR (CKD) >90 (>60 ml/min/1.73 sqM); Albumin 3.9 g/dL (3.5-5.0); Alkaline Phosphatase 148 U/L (38-126); Anion Gap 9 mmol/L; Blood Urea Nitrogen 12 mg/dL (9-20); Calcium 9.3 mg/dL (8.4-10.2); Carbon Dioxide 28 mmol/L (22-30); Chloride 98 mmol/L (98-107); Glucose 130 mg/dL (74-99); Non-African American GFR(CKD) >90 (>60 ml/min/1.73 sqM); Potassium 3.3 mmol/L (3.5-5.1); Sodium 135 mmol/L (137-145); Total Protein 7.4 g/dL (6.3-8.2)
[2024-06-25] MEDS: POTASSIUM CHLORIDE ER 20 MEQ TAB.ER PO SCH (11:43)
[2024-06-25] MEDS: HEPARIN SODIUM 1,000 UN/ML (10ML VL) IV PRN (11:43)
--- NOTE | 2024-06-25 14:36 | P.PN ---
Subjective Progress Note Date: 06/25/24 Principal diagnosis: Shortness of breath. 53-year-old male with a history of hypertension, GERD, recent back surgery March 2024, and a prior right lower extremity DVT, who was seen in the emergency department, room 31. He came in with complaints of chest pain, shortness of breath, back pain, particularly on the right side, and was evaluated and found to have a small subsegmental pulmonary embolism on the right. Chest x-ray suggest the possibility of a [place] hump, as was also seen on the CT scan. We ordered the echo of the heart, and Dopplers of the lower extremities. He has a history of hypertension and GERD. Not a particular good historian. He is on room air. He was started on IV heparin. He previously was on Eliquis, for his right DVT, but could not afford the medication, started taking it 5 mg every other day, rather than 5 mg twice a day. White count 6.9, hemoglobin 17.1, hematocrit 51.5, platelet count 162,000. Coagulation studies were normal. Sodium 137, potassium 3.5, chlorides 103, CO2 25, BUN 13, creatinine 0.81. Alkaline phosphatase was 153. Viral studies were negative. Lower extremity Dopplers were both negative. Chest CT shows a segmental/subsegmental pulmonary embolism, in the right base, with a small patchy infiltrate in the right lower lobe, which could represent a [place] hump. The patient is seen today June 23, 2024 in follow-up in the emergency department. He is currently sitting up on a stretcher. Awake and alert in no acute distress. Feeling better today compared to yesterday. Less right sided chest discomfort. He is maintaining good O2 saturations in the 90s on room air. Dopplers were negative for DVT. He remains on a heparin drip. Procalcitonin was negative at 0.13. White count 5.2. Hemoglobin 14.8. Platelets 113. Sodium 134. Potassium 3.3. Bicarb 27. BUN 10. Creatinine 0.72. Glucose 156. He is currently on ceftriaxone and azithromycin. He will be initiated on warfarin as he cannot afford Eliquis. Progress note dated June 24, 2024. 53-year-old male admitted with a diagnosis of pulmonary embolism. The patient had a previous DVT in the right leg. The patient apparently was supposed to be on Eliquis, 5 mg twice a day, but because of the expense, was taking 5 mg every other day. The patient was seen in the emergency department, and started on IV heparin. He admits freely he cannot afford Eliquis, so in its place, we will recommend Coumadin. Will have the pharmacy dosed the patient, and monitor the PT and INR. Clinically, the patient is stable. He is on room air. He is not receiving any IV fluids, only receiving IV heparin at the current time. He is feeling much better. Current labs include a white count of 6.5, hemoglobin 15, hematocrit 45.8, and a platelet count of 136,000. The patient's INR is 1.1. Sodium 134, potassium 3.3, chlorides 100, CO2 25, BUN 9, creatinine 0.72. Albumin is 3.3. Progress note dated June 25, 2024. 53-year-old male admitted with a diagnosis of pulmonary embolism the patient has a previous history of DVT in the right leg. The patient was not taking his Eliquis as prescribed. Currently, the patient is on Coumadin, being dosed by the pharmacy. His INR was 1.1. Currently, he is on room air. He is receiving IV heparin. Current labs include a white count 8.6, hemoglobin 16, macro 48.7, and a platelet count of 160,000. Sodium 135, potassium 3.3, chloride 98, CO2 28, BUN 12, and creatinine is 0.81. Glucose is 130. Objective - Vital Signs Vital signs: Vital Signs Temp 98.1 F 06/25/24 11:47 Pulse 67 06/25/24 11:47 Resp 16 06/25/24 11:47 BP 150/98 06/25/24 11:47 Pulse Ox 98 06/25/24 11:47 FiO2 Intake & Output 06/24/24 06/25/24 06/25/24 18:59 06:59 18:59 Intake Total 1155.747 654.586 7913.633 Balance 1155.747 598.323 7063.633 Weight 91 kg Intake: IV 128 Heparin Sod,Pork in 0.45% 128 NaCl 25,000 unit In 0.45 % NaCl 1 250ml.bag @ 18 UNITS/KG/HR 17.391 mls/hr IV .[id number] [facility] Rx#: [id number] Intake, IV Titration 35.747 210.617 181.633 Amount Heparin Sod,Pork in 0.45% 35.747 210.617 181.633 NaCl 25,000 unit In 0.45 % NaCl 1 250ml.bag @ 18 UNITS/KG/HR 17.391 mls/hr IV .[id number] [facility] Rx#: [id number] Oral 1120 984 Other: Voiding Method Toilet Toilet Toilet # Voids 2 2 - Exam No acute distress, oriented 3. HEENT examination is grossly unremarkable. Mucous membranes are moist. No oral lesions. Neck supple. Full range of motion. No adenopathy thyromegaly or neck vein distention. Cardiovascular examination reveals regular rhythm rate. S1-S2 normal. No S3 or S4. No discernible murmur noted. Lungs reveal clear breath sounds. Breath sounds are equal bilaterally. No adventitious lung sounds including wheezes rhonchi or crackles. Abdomen soft bowel sounds are heard. No masses or tenderness. Extremities are intact. No cyanosis clubbing or edema. Skin is without rash or lesion. Neurologic examination is brief but nonfocal. - Labs CBC & Chem 7: 06/25/24 07:42 06/25/24 07:42 Labs: Abnormal Lab Results - Last 24 Hours (Table) 06/25/24 06/25/24 Range/Units 07:42 07:42 APTT 35.4 H (22.0-30.0) sec Sodium 135 L (137-145) mmol/L Potassium 3.3 L (3.5-5.1) mmol/L Glucose 130 H (74-99) mg/dL Alkaline Phosphatase 148 H (38-126) U/L Microbiology - Last 24 Hours (Table) 06/22/24 10:23 Blood Culture - Preliminary Blood Assessment and Plan Assessment: Segmental/subsegmental pulmonary embolism, right lower lobe, with possible pulmonary infarction, and [place] Hump. Prior history of right lower extremity DVT, noncompliant with Eliquis therapy. History of hypertension. History of gastroesophageal reflux disease. Previous back surgery, March 2024. Anticipated neck surgery, on July 01. Plan: Plan dated June 22, 2024. The patient is seen in the emergency department, room 31. The patient came into the hospital with complaints of shortness of breath, right lower back pain, and chest pain. He was evaluated, and found to have a pulmonary embolism, in the right lower lobe, small, segmental/subsegmental, and the possibility of pulmonary infarction, which may explain the patient's pain. He has a history of hypertension, gastroesophageal reflux disease, and back surgery in March, and is apparently scheduled to have repeat neck surgery, later this month. The patient was using Eliquis, 5 mg every other day, because he could not afford it every day. He does have a prior history of right lower extremity DVT. Dopplers on this admission were negative. Echocardiogram was ordered. Additional recommendations and suggestions are forthcoming. Prognosis is guarded. Plan dated June 24, 2024. The patient will be started on Coumadin. Pharmacy will dose. The patient continues on IV heparin. Clinically, he is asymptomatic at this time. He had a very small segmental/subsegmental pulmonary embolism involving the right lower lobe. The patient may have sustained a pulmonary infarction as well, because he came up with right back pain. CT scan suggested [place] hump. Labs, x-rays, and medications are reviewed. I recommend no additional surgery at this time for at least 3 months. He will need follow-up in the office. Prognosis is guarded. Dictation was produced using [employer] software. Please excuse any grammatical, word or spelling errors. Plan dated June 25, 2024. The patient is currently on Coumadin. It is being dosed by pharmacy. Unfortunately, the patient's INR today was still 1.1. He continues on IV heparin. Clinically he is stable. He is on room air. Labs, x-rays, and all medications are reviewed. We will continue to follow make recommendations along the way. As an outpatient, the patient should follow-up with hematology. Dictation was produced using [employer] software. Please excuse any gra mmatical, word or spelling errors. Time with Patient: Less than 30
[2024-06-25] MEDS: WARFARIN 10 MG TAB PO ONE (17:43)
[2024-06-25] MEDS: ACETAMINOPHEN TAB 325 MG TAB PO PRN (22:54)
[2024-06-26 07:21] LABS: INR 1.1 (<1.2); Partial Thromboplastin Time 43.9 sec (22.0-30.0); Prothrombin Time 11.6 sec (10.0-12.5)
[2024-06-26 07:30] LABS: ALT 48 U/L (4-49); AST 62 U/L (17-59); African American GFR (CKD) >90 (>60 ml/min/1.73 sqM); Albumin 3.5 g/dL (3.5-5.0); Alkaline Phosphatase 141 U/L (38-126); Anion Gap 8 mmol/L; Blood Urea Nitrogen 12 mg/dL (9-20); Calcium 9.1 mg/dL (8.4-10.2); Carbon Dioxide 26 mmol/L (22-30); Chloride 100 mmol/L (98-107); Glucose 108 mg/dL (74-99); Non-African American GFR(CKD) >90 (>60 ml/min/1.73 sqM); Sodium 134 mmol/L (137-145); Total Bilirubin 0.7 mg/dL (0.2-1.3); Total Protein 6.5 g/dL (6.3-8.2)
--- NOTE | 2024-06-26 08:37 | P.PN ---
Subjective Principal diagnosis: pulmonary embolus. This 63-year-old white male who has recurrent venous thromboembolism. Due to cost containment issues, he was not able to afford [facility] as an outpatient. We are working on appropriate coverage but he is now being started on warfarin from therapy. He is complaining of foot pain. I do suspect gout. Will start Colcrys. Objective - Vital Signs Vital signs: Vital Signs Temp 99.8 F H 06/26/24 08:00 Pulse 77 06/26/24 08:00 Resp 16 06/26/24 08:00 BP 159/82 06/26/24 08:00 Pulse Ox 99 06/26/24 08:00 FiO2 Intake & Output 06/25/24 06/26/24 06/26/24 18:59 06:59 18:59 Intake Total 2526.322 235.973 Balance 2526.322 235.973 Weight 92 kg Intake: IV 256 Heparin Sod,Pork in 0.45% 256 NaCl 25,000 unit In 0.45 % NaCl 1 250ml.bag @ 18 UNITS/KG/HR 17.391 mls/hr IV .[id number] [facility] Rx#: [id number] Intake, IV Titration 244.322 235.973 Amount Heparin Sod,Pork in 0.45% 244.322 235.973 NaCl 25,000 unit In 0.45 % NaCl 1 250ml.bag @ 18 UNITS/KG/HR 17.391 mls/hr IV .[id number] [facility] Rx#: [id number] Oral 2025 Other: Voiding Method Toilet Toilet # Voids 1 - Constitutional General appearance: Present: average body habitus - EENT Eyes: Absent: abnormal pupil - Respiratory Respiratory: bilateral: diminished - Cardiovascular Rhythm: regular Heart sounds: normal: S1, S2 Abnormal Heart Sounds: Absent: S3 Gallop - Gastrointestinal General gastrointestinal: Present: soft. Absent: tenderness - Integumentary Integumentary: Absent: cellulitis - Labs CBC & Chem 7: 06/25/24 07:42 06/26/24 06:45 Labs: Abnormal Lab Results - Last 24 Hours (Table) 06/25/24 06/25/24 06/26/24 Range/Units 07:42 17:28 06:45 APTT 42.1 H (22.0-30.0) sec Sodium 135 L 134 L (137-145) mmol/L Potassium 3.3 L (3.5-5.1) mmol/L Glucose 130 H 108 H (74-99) mg/dL AST 62 H (17-59) U/L Alkaline Phosphatase 148 H 141 H (38-126) U/L 06/26/24 Range/Units 06:45 APTT 43.9 H (22.0-30.0) sec Sodium (137-145) mmol/L Potassium (3.5-5.1) mmol/L Glucose (74-99) mg/dL AST (17-59) U/L Alkaline Phosphatase (38-126) U/L Microbiology - Last 24 Hours (Table) 06/22/24 10:23 Blood Culture - Preliminary Blood Assessment and Plan (1) GERD (gastroesophageal reflux disease) Current Visit: Yes Status: Acute Code(s): K21.9 - GASTRO-ESOPHAGEAL REFLUX DISEASE WITHOUT ESOPHAGITIS SNOMED Code(s): 847866019 (2) Pulmonary embolism Current Visit: Yes Status: Acute Code(s): I26.99 - OTHER PULMONARY EMBOLISM WITHOUT ACUTE COR PULMONALE SNOMED Code(s): 04598542 (3) Hypertension Current Visit: No Status: Acute Code(s): I10 - ESSENTIAL (PRIMARY) HYPERTENSION SNOMED Code(s): 47338151 (4) Lumbar spinal stenosis Current Visit: No Status: Acute Code(s): M48.061 - SPINAL STENOSIS, LUMBAR REGION WITHOUT NEUROGENIC GIANNI SNOMED Code(s): 01422773 Plan: Continue appropriate antibiotic coagulation treatment per pulmonology. Check CBC with PT/INR in the a.m. We'll continue to follow. Colchicine started for gout flare.
--- NOTE | 2024-06-26 09:07 | XR ---
EXAMINATION TYPE: XR foot complete LT DATE OF EXAM: 06/26/2024 8:57 AM COMPARISON: Left foot x-ray 2018. CLINICAL INDICATION: Male, 53 years old with history of pain swelling, difficulty to bear weight, mayi n TECHNIQUE: Frontal, lateral, and oblique images of the left foot are obtained. FINDINGS: There is no acute fracture/dislocation evident in the left foot. Mild to moderate narrowin g and moderate spurring at the first metatarsophalangeal joint is more prominent versus prior. Modera te to severe dorsal surface spurring hindfoot and midfoot level on lateral view more prominent versus prior. More prominent moderate size inferior calcaneal spur. The overlying soft tissue appears unrem arkable. IMPRESSION: As above. [facility], , 06/26/2024 9:05 AM
[2024-06-26 09:22] LABS: INR 1.2 (<1.2); Prothrombin Time 12.7 sec (10.0-12.5)
[2024-06-26] MEDS: COLCHICINE 0.6 MG EACH PO SCH (10:30)
--- NOTE | 2024-06-26 14:29 | P.PN ---
Subjective Progress Note Date: 06/26/24 Principal diagnosis: Shortness of breath. 53-year-old male with a history of hypertension, GERD, recent back surgery March 2024, and a prior right lower extremity DVT, who was seen in the emergency department, room 31. He came in with complaints of chest pain, shortness of breath, back pain, particularly on the right side, and was evaluated and found to have a small subsegmental pulmonary embolism on the right. Chest x-ray suggest the possibility of a [place] hump, as was also seen on the CT scan. We ordered the echo of the heart, and Dopplers of the lower extremities. He has a history of hypertension and GERD. Not a particular good historian. He is on room air. He was started on IV heparin. He previously was on Eliquis, for his right DVT, but could not afford the medication, started taking it 5 mg every other day, rather than 5 mg twice a day. White count 6.9, hemoglobin 17.1, hematocrit 51.5, platelet count 162,000. Coagulation studies were normal. Sodium 137, potassium 3.5, chlorides 103, CO2 25, BUN 13, creatinine 0.81. Alkaline phosphatase was 153. Viral studies were negative. Lower extremity Dopplers were both negative. Chest CT shows a segmental/subsegmental pulmonary embolism, in the right base, with a small patchy infiltrate in the right lower lobe, which could represent a [place] hump. The patient is seen today June 23, 2024 in follow-up in the emergency department. He is currently sitting up on a stretcher. Awake and alert in no acute distress. Feeling better today compared to yesterday. Less right sided chest discomfort. He is maintaining good O2 saturations in the 90s on room air. Dopplers were negative for DVT. He remains on a heparin drip. Procalcitonin was negative at 0.13. White count 5.2. Hemoglobin 14.8. Platelets 113. Sodium 134. Potassium 3.3. Bicarb 27. BUN 10. Creatinine 0.72. Glucose 156. He is currently on ceftriaxone and azithromycin. He will be initiated on warfarin as he cannot afford Eliquis. Progress note dated June 24, 2024. 53-year-old male admitted with a diagnosis of pulmonary embolism. The patient had a previous DVT in the right leg. The patient apparently was supposed to be on Eliquis, 5 mg twice a day, but because of the expense, was taking 5 mg every other day. The patient was seen in the emergency department, and started on IV heparin. He admits freely he cannot afford Eliquis, so in its place, we will recommend Coumadin. Will have the pharmacy dosed the patient, and monitor the PT and INR. Clinically, the patient is stable. He is on room air. He is not receiving any IV fluids, only receiving IV heparin at the current time. He is feeling much better. Current labs include a white count of 6.5, hemoglobin 15, hematocrit 45.8, and a platelet count of 136,000. The patient's INR is 1.1. Sodium 134, potassium 3.3, chlorides 100, CO2 25, BUN 9, creatinine 0.72. Albumin is 3.3. Progress note dated June 25, 2024. 53-year-old male admitted with a diagnosis of pulmonary embolism the patient has a previous history of DVT in the right leg. The patient was not taking his Eliquis as prescribed. Currently, the patient is on Coumadin, being dosed by the pharmacy. His INR was 1.1. Currently, he is on room air. He is receiving IV heparin. Current labs include a white count 8.6, hemoglobin 16, macro 48.7, and a platelet count of 160,000. Sodium 135, potassium 3.3, chloride 98, CO2 28, BUN 12, and creatinine is 0.81. Glucose is 130. Progress note dated June 26, 2024. 53-year-old male seen initially in the emergency department, with pulmonary embolism/pulmonary infarction. The patient had been on Eliquis, but was only taking 5 mg, every other day, as he could not afford it, and was trying to make it last as long as possible. The patient states that he cannot afford that drug, so we have been currently on Coumadin, being dosed by the pharmacy. He is resting comfortably in bed. His INR is 1.2. He is on room air. He is r eceiving IV heparin. He complains of gout in his foot. He was placed on colchicine by his primary care physician. We ordered a uric acid level, but is not back as yet. Objective - Vital Signs Vital signs: Vital Signs Temp 99.6 F 06/26/24 12:00 Pulse 77 06/26/24 13:21 Resp 14 06/26/24 13:21 BP 130/90 06/26/24 12:00 Pulse Ox 99 06/26/24 12:00 FiO2 Intake & Output 06/25/24 06/26/24 06/26/24 18:59 06:59 18:59 Intake Total 2526.322 235.973 848 Balance 2526.322 235.973 848 Weight 92 kg Intake: IV 256 128 Heparin Sod,Pork in 0.45% 256 128 NaCl 25,000 unit In 0.45 % NaCl 1 250ml.bag @ 18 UNITS/KG/HR 17.391 mls/hr IV .[id number] [facility] Rx#: [id number] Intake, IV Titration 244.322 235.973 Amount Heparin Sod,Pork in 0.45% 244.322 235.973 NaCl 25,000 unit In 0.45 % NaCl 1 250ml.bag @ 18 UNITS/KG/HR 17.391 mls/hr IV .[id number] [facility] Rx#: [id number] Oral 2025 Other: Voiding Method Toilet Toilet Toilet # Voids 1 - Exam No acute distress, oriented 3. HEENT examination is grossly unremarkable. Mucous membranes are moist. No oral lesions. Neck supple. Full range of motion. No adenopathy thyromegaly or neck vein distention. Cardiovascular examination reveals regular rhythm rate. S1-S2 normal. No S3 or S4. No discernible murmur noted. Lungs reveal clear breath sounds. Breath sounds are equal bilaterally. No adventitious lung sounds including wheezes rhonchi or crackles. Abdomen soft bowel sounds are heard. No masses or tenderness. Extremities are intact. No cyanosis clubbing or edema. Skin is without rash or lesion. Neurologic examination is brief but nonfocal. - Labs CBC & Chem 7: 06/25/24 07:42 06/26/24 06:45 Labs: Abnormal Lab Results - Last 24 Hours (Table) 06/25/24 06/26/24 06/26/24 Range/Units 17:28 06:45 06:45 PT (10.0-12.5) sec INR (<1.2) APTT 42.1 H 43.9 H (22.0-30.0) sec Sodium 134 L (137-145) mmol/L Glucose 108 H (74-99) mg/dL AST 62 H (17-59) U/L Alkaline Phosphatase 141 H (38-126) U/L 06/26/24 Range/Units 08:46 PT 12.7 H (10.0-12.5) sec INR 1.2 H (<1.2) APTT (22.0-30.0) sec Sodium (137-145) mmol/L Glucose (74-99) mg/dL AST (17-59) U/L Alkaline Phosphatase (38-126) U/L Microbiology - Last 24 Hours (Table) 06/22/24 10:23 Blood Culture - Preliminary Blood Assessment and Plan Assessment: Segmental/subsegmental pulmonary embolism, right lower lobe, with possible pulmonary infarction, and [place] Hump. Prior history of right lower extremity DVT, noncompliant with Eliquis therapy. History of hypertension. History of gout. History of gastroesophageal reflux disease. Previous back surgery, March 2024. Anticipated neck surgery, on July 01. Plan: Plan dated June 22, 2024. The patient is seen in the emergency department, room 31. The patient came into the hospital with complaints of shortness of breath, right lower back pain, and chest pain. He was evaluated, and found to have a pulmonary embolism, in the right lower lobe, small, segmental/subsegmental, and the possibility of pulmonary infarction, which may explain the patient's pain. He has a history of hypertension, gastroesophageal reflux disease, and back surgery in 2023, March, and is apparently scheduled to have repeat neck surgery, later this month. The patient was using Eliquis, 5 mg every other day, because he could not afford it every day. He does have a prior history of right lower extremity DVT. Dopplers on this admission were negative. Echocardiogram was ordered. Ad ditional recommendations and suggestions are forthcoming. Prognosis is guarded. Plan dated June 24, 2024. The patient will be started on Coumadin. Pharmacy will dose. The patient continues on IV heparin. Clinically, he is asymptomatic at this time. He had a very small segmental/subsegmental pulmonary embolism involving the right lower lobe. The patient may have sustained a pulmonary infarction as well, because he came up with right back pain. CT scan suggested [place] hump. Labs, x-rays, and medications are reviewed. I recommend no additional surgery at this time for at least 3 months. He will need follow-up in the office. Prognosis is guarded. Dictation was produced using [employer] software. Please excuse any grammatical, word or spelling errors. Plan dated June 25, 2024. The patient is currently on Coumadin. It is being dosed by pharmacy. Unfortunately, the patient's INR today was still 1.1. He continues on IV heparin. Clinically he is stable. He is on room air. Labs, x-rays, and all medications are reviewed. We will continue to follow make recommendations along the way. As an outpatient, the patient should follow-up with hematology. Dictation was produced using [employer] software. Please excuse any grammatical, word or spelling errors. Plan dated June 26, 2024. The patient was placed on colchicine for acute gout. The patient will have a uric acid level checked. The patient is currently on Coumadin being dosed by the pharmacy. His INR is only 1.2. His INR will have to be between 2 and 3. The patient should follow-up with hematology after discharge. Additional recommendations and suggestions are forthcoming. All labs, x-rays, and medications are reviewed. Sodium 134, potassium 4, chlorides 100, CO2 26, BUN 12, creatinine 0.71. Glucose is 108. Uric acid levels pending. As mentioned, INR is 1.2. PTT is 43.9. He continues on IV heparin. Prognosis is guarded. Dictation was produced using [employer] software. Please excuse any grammatical, word or spelling errors. Time with Patient: Less than 30
[2024-06-26] MEDS: WARFARIN 10 MG TAB PO ONE (17:19)
[2024-06-27 08:01] LABS: HCT 44.1 % (39.0-53.0); HGB 14.4 gm/dL (13.0-17.5); MCH 31.6 pg (25.0-35.0); MCHC 32.7 g/dL (31.0-37.0); MCV 96.5 fL (80.0-100.0); Mean Platelet Volume 8.5; Platelet Count 163 k/uL (150-450); RBC 4.57 m/uL (4.30-5.90); RDW 13.8 % (11.5-15.5); WBC 5.9 k/uL (3.8-10.6)
[2024-06-27 08:20] LABS: INR 1.2 (<1.2); Prothrombin Time 13.2 sec (10.0-12.5)
[2024-06-27 08:34] LABS: ALT 51 U/L (4-49); AST 54 U/L (17-59); African American GFR (CKD) >90 (>60 ml/min/1.73 sqM); Albumin 3.3 g/dL (3.5-5.0); Alkaline Phosphatase 133 U/L (38-126); Anion Gap 5 mmol/L; Blood Urea Nitrogen 14 mg/dL (9-20); Calcium 9.2 mg/dL (8.4-10.2); Carbon Dioxide 28 mmol/L (22-30); Chloride 101 mmol/L (98-107); Glucose 124 mg/dL (74-99); Non-African American GFR(CKD) >90 (>60 ml/min/1.73 sqM); Potassium 3.9 mmol/L (3.5-5.1); Sodium 134 mmol/L (137-145); Total Bilirubin 0.6 mg/dL (0.2-1.3); Total Protein 6.5 g/dL (6.3-8.2)
--- NOTE | 2024-06-27 12:10 | P.PN ---
Subjective This 63-year-old white male who has recurrent venous thromboembolism. Due to cost containment issues, he was not able to afford Eliquis as an outpatient. We are working on appropriate coverage but he is now being started on warfarin from therapy. He is complaining of foot pain. I do suspect gout. on, colchicine 06/27 Patient with no chest pain or dyspnea Foot pain looks controlled On Coumadin 10 mg, INR yesterday and today is 1.2 All questions answered Objective - Vital Signs Vital signs: Vital Signs Temp 98.1 F 06/27/24 08:55 Pulse 82 06/27/24 08:55 Resp 16 06/27/24 08:55 BP 131/77 06/27/24 08:55 Pulse Ox 95 06/27/24 08:55 FiO2 Intake & Output 06/26/24 06/27/24 06/27/24 18:59 06:59 18:59 Intake Total 1188 250 560 Output Total 0 Balance 1188 250 560 Weight 92 kg Intake: IV 128 20 Heparin Sod,Pork in 0.45% 128 NaCl 25,000 unit In 0.45 % NaCl 1 250ml.bag @ 18 UNITS/KG/HR 17.391 mls/hr IV .[id number] [facility] Rx#: [id number] Invasive Line 1 10 Invasive Line 2 10 Intake, IV Titration 250 Amount Heparin Sod,Pork in 0.45% 250 NaCl 25,000 unit In 0.45 % NaCl 1 250ml.bag @ 18 UNITS/KG/HR 17.391 mls/hr IV .[id number] [facility] Rx#: [id number] Oral 1060 540 Output: Gastric Drainage 0 Urine 0 Stool 0 Urine/Stool Mix 0 Emesis 0 Oral Regurgitation 0 Other 0 Other: Voiding Method Toilet Toilet Toilet # Voids 2 0 # Bowel Movements 0 - Exam GENERAL: The patient is alert and oriented x3, not in any acute distress. Well developed, well nourished. HEENT: Pupils are round and equally reacting to light. EOMI. No scleral icterus. No conjunctival pallor. Normocephalic, atraumatic. No pharyngeal erythema. No thyromegaly. CARDIOVASCULAR: S1 and S2 present. No murmurs, rubs, or gallops. PULMONARY: Chest is clear to auscultation, no wheezing , no crackles. ABDOMEN: Soft, nontender, nondistended, normoactive bowel sounds. No palpable organomegaly. MUSCULOSKELETAL: No joint swelling or deformity. EXTREMITIES: No cyanosis, clubbing, or pedal edema. NEUROLOGICAL: Gross neurological examination did not reveal any focal deficits. SKIN: No rashes. no petechiae. - Labs CBC & Chem 7: 06/27/24 07:43 06/27/24 07:43 Labs: Abnormal Lab Results - Last 24 Hours (Table) 06/27/24 06/27/24 06/27/24 Range/Units 07:43 07:43 07:43 PT 13.2 H (10.0-12.5) sec INR 1.2 H (<1.2) APTT 42.1 H (22.0-30.0) sec Sodium 134 L (137-145) mmol/L Glucose 124 H (74-99) mg/dL ALT 51 H (4-49) U/L Alkaline Phosphatase 133 H (38-126) U/L Albumin 3.3 L (3.5-5.0) g/dL Assessment and Plan Assessment: Assessment and Plan (1) GERD (gastroesophageal reflux disease) Current Visit: Yes Status: Acute Code(s): K21.9 - GASTRO-ESOPHAGEAL REFLUX DISEASE WITHOUT ESOPHAGITIS SNOMED Code(s): 327599280 (2) Pulmonary embolism Current Visit: Yes Status: Acute Code(s): I26.99 - OTHER PULMONARY EMBOLISM WITHOUT ACUTE COR PULMONALE SNOMED Code(s): 89363876 (3) Hypertension Current Visit: No Status: Acute Code(s): I10 - ESSENTIAL (PRIMARY) HYPERTENSION SNOMED Code(s): 53562629 (4) Lumbar spinal stenosis Current Visit: No Status: Acute Code(s): M48.061 - SPINAL STENOSIS, LUMBAR REGION WITHOUT NEUROGENIC GIANNI SNOMED Code(s): 81339184 Plan: Continue appropriate antibiotic coagulation treatment per pulmonology. Check CBC with PT/INR in the a.m. We'll continue to follow. Colchicine started for gout flare.
--- NOTE | 2024-06-27 14:19 | P.PN ---
Subjective Progress Note Date: 06/27/24 Principal diagnosis: Shortness of breath. 53-year-old male with a history of hypertension, GERD, recent back surgery March 2024, and a prior right lower extremity DVT, who was seen in the emergency department, room 31. He came in with complaints of chest pain, shortness of breath, back pain, particularly on the right side, and was evaluated and found to have a small subsegmental pulmonary embolism on the right. Chest x-ray suggest the possibility of a [place] hump, as was also seen on the CT scan. We ordered the echo of the heart, and Dopplers of the lower extremities. He has a history of hypertension and GERD. Not a particular good historian. He is on room air. He was started on IV heparin. He previously was on Eliquis, for his right DVT, but could not afford the medication, started taking it 5 mg every other day, rather than 5 mg twice a day. White count 6.9, hemoglobin 17.1, hematocrit 51.5, platelet count 162,000. Coagulation studies were normal. Sodium 137, potassium 3.5, chlorides 103, CO2 25, BUN 13, creatinine 0.81. Alkaline phosphatase was 153. Viral studies were negative. Lower extremity Dopplers were both negative. Chest CT shows a segmental/subsegmental pulmonary embolism, in the right base, with a small patchy infiltrate in the right lower lobe, which could represent a [place] hump. The patient is seen today June 23, 2024 in follow-up in the emergency department. He is currently sitting up on a stretcher. Awake and alert in no acute distress. Feeling better today compared to yesterday. Less right sided chest discomfort. He is maintaining good O2 saturations in the 90s on room air. Dopplers were negative for DVT. He remains on a heparin drip. Procalcitonin was negative at 0.13. White count 5.2. Hemoglobin 14.8. Platelets 113. Sodium 134. Potassium 3.3. Bicarb 27. BUN 10. Creatinine 0.72. Glucose 156. He is currently on ceftriaxone and azithromycin. He will be initiated on warfarin as he cannot afford Eliquis. Progress note dated June 24, 2024. 53-year-old male admitted with a diagnosis of pulmonary embolism. The patient had a previous DVT in the right leg. The patient apparently was supposed to be on Eliquis, 5 mg twice a day, but because of the expense, was taking 5 mg every other day. The patient was seen in the emergency department, and started on IV heparin. He admits freely he cannot afford Eliquis, so in its place, we will recommend Coumadin. Will have the pharmacy dosed the patient, and monitor the PT and INR. Clinically, the patient is stable. He is on room air. He is not receiving any IV fluids, only receiving IV heparin at the current time. He is feeling much better. Current labs include a white count of 6.5, hemoglobin 15, hematocrit 45.8, and a platelet count of 136,000. The patient's INR is 1.1. Sodium 134, potassium 3.3, chlorides 100, CO2 25, BUN 9, creatinine 0.72. Albumin is 3.3. Progress note dated June 25, 2024. 53-year-old male admitted with a diagnosis of pulmonary embolism the patient has a previous history of DVT in the right leg. The patient was not taking his Eliquis as prescribed. Currently, the patient is on Coumadin, being dosed by the pharmacy. His INR was 1.1. Currently, he is on room air. He is receiving IV heparin. Current labs include a white count 8.6, hemoglobin 16, macro 48.7, and a platelet count of 160,000. Sodium 135, potassium 3.3, chloride 98, CO2 28, BUN 12, and creatinine is 0.81. Glucose is 130. Progress note dated June 26, 2024. 53-year-old male seen initially in the emergency department, with pulmonary embolism/pulmonary infarction. The patient had been on Eliquis, but was only taking 5 mg, every other day, as he could not afford it, and was trying to make it last as long as possible. The patient states that he cannot afford that drug, so we have been currently on Coumadin, being dosed by the pharmacy. He is resting comfortably in bed. His INR is 1.2. He is on room air. He is r eceiving IV heparin. He complains of gout in his foot. He was placed on colchicine by his primary care physician. We ordered a uric acid level, but is not back as yet. Progress note dated June 27, 2024. 53-year-old male seen in the emergency room initially, with a diagnosis of pulmonary embolism/pulmonary infarction. The patient was on Eliquis, but he was not taking it properly, only taking it 5 mg every other day. It was because it was too expensive for him. He continues on IV heparin. He was transition to Coumadin. His INR was 1.2. He is on room air. Yesterday, he was complaining about gout in his foot. White count is 5.9, hemoglobin 14.4, hematocrit 44.1, platelet count normal. PT is 13.2, INR 1.2, PTT is 42.1. Sodium 134, potassium 3.9, chlorides 101, CO2 28, BUN 14, creatinine 0.83. Uric acid was 8.1, and his subsequent uric acid was 7.5. Albumin 3.3. Objective - Vital Signs Vital signs: Vital Signs Temp 98.3 F 06/27/24 12:48 Pulse 72 06/27/24 12:48 Resp 18 06/27/24 12:48 BP 142/92 06/27/24 12:48 Pulse Ox 95 06/27/24 12:48 FiO2 Intake & Output 06/26/24 06/27/24 06/27/24 18:59 06:59 18:59 Intake Total 1188 250 560 Output Total 0 Balance 1188 250 560 Weight 92 kg Intake: IV 128 20 Heparin Sod,Pork in 0.45% 128 NaCl 25,000 unit In 0.45 % NaCl 1 250ml.bag @ 18 UNITS/KG/HR 17.391 mls/hr IV .[id number] [facility] Rx#: [id number] Invasive Line 1 10 Invasive Line 2 10 Intake, IV Titration 250 Amount Heparin Sod,Pork in 0.45% 250 NaCl 25,000 unit In 0.45 % NaCl 1 250ml.bag @ 18 UNITS/KG/HR 17.391 mls/hr IV .[id number] [facility] Rx#: [id number] Oral 1060 540 Output: Gastric Drainage 0 Urine 0 Stool 0 Urine/Stool Mix 0 Emesis 0 Oral Regurgitation 0 Other 0 Other: Voiding Method Toilet Toilet Toilet # Voids 2 0 # Bowel Movements 0 - Exam No acute distress, oriented 3. HEENT examination is grossly unremarkable. Mucous membranes are moist. No oral lesions. Neck supple. Full range of motion. No adenopathy thyromegaly or neck vein distention. Cardiovascular examination reveals regular rhythm rate. S1-S2 normal. No S3 or S4. No discernible murmur noted. Lungs reveal clear breath sounds. Breath sounds are equal bilaterally. No adventitious lung sounds including wheezes rhonchi or crackles. Abdomen soft bowel sounds are heard. No masses or tenderness. Extremities are intact. No cyanosis clubbing or edema. Skin is without rash or lesion. Neurologic examination is brief but nonfocal. - Labs CBC & Chem 7: 06/27/24 07:43 06/27/24 07:43 Labs: Abnormal Lab Results - Last 24 Hours (Table) 06/27/24 06/27/24 06/27/24 Range/Units 07:43 07:43 07:43 PT 13.2 H (10.0-12.5) sec INR 1.2 H (<1.2) APTT 42.1 H (22.0-30.0) sec Sodium 134 L (137-145) mmol/L Glucose 124 H (74-99) mg/dL ALT 51 H (4-49) U/L Alkaline Phosphatase 133 H (38-126) U/L Albumin 3.3 L (3.5-5.0) g/dL Assessment and Plan Assessment: Segmental/subsegmental pulmonary embolism, right lower lobe, with possible pulmonary infarction, and [place] Hump. Prior history of right lower extremity DVT, noncompliant with Eliquis therapy. History of hypertension. History of gout. History of gastroesophageal reflux disease. Previous back surgery, March 2024. Anticipated neck surgery, on July 01. Plan: Plan dated June 22, 2024. The patient is seen in the emergency department, room 31. The patient came into the hospital with complaints of shortness of breath, right lower back pain, and chest pain. He was evaluated, and found to have a pulmonary embolism, in the right lower lobe, small, segmental/subsegmental, and the possibility of pulmonary infarction, which may explain the patient's pain. He has a history of hypertension, gastroesophageal reflux disease, and back surgery in 2023, March, and is apparently scheduled to have repeat neck surgery, later this month. The patient was using Eliquis, 5 mg every other day, because he could not afford it every day. He does have a prior history of right lower extremity DVT. Dopplers on this admission were negative. Echocardiogram was ordered. Additional recommendations and suggestions are forthcoming. Prognosis is guarded. Plan dated June 24, 2024. The patient will be started on Coumadin. Pharmacy will dose. The patient continues on IV heparin. Clinically, he is asymptomatic at this time. He had a very small segmental/subsegmental pulmonary embolism involving the right lower lobe. The patient may have sustained a pulmonary infarction as well, because he came up with right back pain. CT scan suggested [place] hump. Labs, x-rays, and medications are reviewed. I recommend no additional surgery at this time for at least 3 months. He will need follow-up in the office. Prognosis is guarded. Dictation was produced using [employer] software. Please excuse any grammatical, word or spelling errors. Plan dated June 25, 2024. The patient is currently on Coumadin. It is being dosed by pharmacy. Unfortunately, the patient's INR today was still 1.1. He continues on IV heparin. Clinically he is stable. He is on room air. Labs, x-rays, and all medications are reviewed. We will continue to follow make recommendations along the way. As an outpatient, the patient should follow-up with hematology. Dictation was produced using [employer] software. Please excuse any grammatical, word or spelling errors. Plan dated June 26, 2024. The patient was placed on colchicine for acute gout. The patient will have a uric acid level checked. The patient is currently on Coumadin being dosed by the pharmacy. His INR is only 1.2. His INR will have to be between 2 and 3. The patient should follow-up with hematology after discharge. Additional recommendations and suggestions are forthcoming. All labs, x-rays, and medications are reviewed. Sodium 134, potassium 4, chlorides 100, CO2 26, BUN 12, creatinine 0.71. Glucose is 108. Uric acid levels pending. As mentioned, INR is 1.2. PTT is 43.9. He continues on IV heparin. Prognosis is guarded. Dictation was produced using [employer] software. Please excuse any grammatical, word or spelling errors. Plan dated June 27, 2024. The patient is currently on Coumadin, being dosed by pharmacy. His INR is only 1.2. He continues on IV heparin. He is on room air. He is really not having any pulmonary issues at this time. He was complaining about gout yesterday. His primary service put him on colchicine. Labs, x-rays, and medications are reviewed. Additional recommendations and suggestions are forthcoming. Prognosis is guarded. We will continue to follow the patient. Dictation was produced using [employer] dictation software. Please excuse any grammatical, word or spelling errors. Time with Patient: Less than 30
[2024-06-27] MEDS: WARFARIN 10 MG TAB PO ONE (17:21)
[2024-06-28 08:12] LABS: INR 1.3 (<1.2); Prothrombin Time 13.6 sec (10.0-12.5)
--- NOTE | 2024-06-28 12:25 | P.PN ---
Subjective This 63-year-old white male who has recurrent venous thromboembolism. Due to cost containment issues, he was not able to afford Eliquis as an outpatient. We are working on appropriate coverage but he is now being started on warfarin from therapy. He is complaining of foot pain. I do suspect gout. on, colchicine 06/27 Patient with no chest pain or dyspnea Foot pain looks controlled On Coumadin 10 mg, INR yesterday and today is 1.2 All questions answered 06/28 No shortness of breath INR is 1.3 today, continued on Coumadin His left foot pain is improved Objective - Vital Signs Vital signs: Vital Signs Temp 98.1 F 06/28/24 12:06 Pulse 77 06/28/24 12:06 Resp 16 06/28/24 12:06 BP 143/89 06/28/24 12:06 Pulse Ox 97 06/28/24 12:06 FiO2 Intake & Output 06/27/24 06/28/24 06/28/24 17:59 06:59 18:59 Intake Total 250 Output Total Balance 250 Weight Intake: IV 10 Invasive Line 1 Invasive Line 2 Invasive Line 3 10 Intake, IV Titration Amount Heparin Sod,Pork in 0.45% NaCl 25,000 unit In 0.45 % NaCl 1 250ml.bag @ 18 UNITS/KG/HR 17.391 mls/hr IV .[id number] [facility] Rx#: [id number] Oral 240 Output: Gastric Drainage Urine Stool Urine/Stool Mix Emesis Oral Regurgitation Other Other: Voiding Method Toilet # Voids 2 # Bowel Movements 1 - Exam GENERAL: The patient is alert and oriented x3, not in any acute distress. Well developed, well nourished. HEENT: Pupils are round and equally reacting to light. EOMI. No scleral icterus. No conjunctival pallor. Normocephalic, atraumatic. No pharyngeal erythema. No thyromegaly. CARDIOVASCULAR: S1 and S2 present. No murmurs, rubs, or gallops. PULMONARY: Chest is clear to auscultation, no wheezing , no crackles. ABDOMEN: Soft, nontender, nondistended, normoactive bowel sounds. No palpable organomegaly. MUSCULOSKELETAL: No joint swelling or deformity. EXTREMITIES: No cyanosis, clubbing, or pedal edema. NEUROLOGICAL: Gross neurological examination did not reveal any focal deficits. SKIN: No rashes. no petechiae. - Labs CBC & Chem 7: 06/27/24 07:43 06/27/24 07:43 Labs: Abnormal Lab Results - Last 24 Hours (Table) 06/28/24 06/28/24 Range/Units 07:42 07:42 PT 13.6 H (10.0-12.5) sec INR 1.3 H (<1.2) APTT 49.2 H (22.0-30.0) sec Microbiology - Last 24 Hours (Table) 06/22/24 10:23 Blood Culture - Final Blood Assessment and Plan Assessment: Assessment and Plan (1) GERD (gastroesophageal reflux disease) Current Visit: Yes Status: Acute Code(s): K21.9 - GASTRO-ESOPHAGEAL REFLUX DISEASE WITHOUT ESOPHAGITIS SNOMED Code(s): 425197252 (2) Pulmonary embolism Current Visit: Yes Status: Acute Code(s): I26.99 - OTHER PULMONARY EMBOLISM WITHOUT ACUTE COR PULMONALE SNOMED Code(s): 12799072 (3) Hypertension Current Visit: No Status: Acute Code(s): I10 - ESSENTIAL (PRIMARY) HYPERTENSION SNOMED Code(s): 47354900 (4) Lumbar spinal stenosis Current Visit: No Status: Acute Code(s): M48.061 - SPINAL STENOSIS, LUMBAR REGION WITHOUT NEUROGENIC GIANNI SNOMED Code(s): 34301818 Plan: Continue appropriate antibiotic coagulation treatment per pulmonology. Check CBC with PT/INR in the a.m. We'll continue to follow. Colchicine started for gout flare.
--- NOTE | 2024-06-28 13:48 | P.PN ---
Subjective Progress Note Date: 06/28/24 Principal diagnosis: Shortness of breath. 53-year-old male with a history of hypertension, GERD, recent back surgery March 2024, and a prior right lower extremity DVT, who was seen in the emergency department, room 31. He came in with complaints of chest pain, shortness of breath, back pain, particularly on the right side, and was evaluated and found to have a small subsegmental pulmonary embolism on the right. Chest x-ray suggest the possibility of a [place] hump, as was also seen on the CT scan. We ordered the echo of the heart, and Dopplers of the lower extremities. He has a history of hypertension and GERD. Not a particular good historian. He is on room air. He was started on IV heparin. He previously was on Eliquis, for his right DVT, but could not afford the medication, started taking it 5 mg every other day, rather than 5 mg twice a day. White count 6.9, hemoglobin 17.1, hematocrit 51.5, platelet count 162,000. Coagulation studies were normal. Sodium 137, potassium 3.5, chlorides 103, CO2 25, BUN 13, creatinine 0.81. Alkaline phosphatase was 153. Viral studies were negative. Lower extremity Dopplers were both negative. Chest CT shows a segmental/subsegmental pulmonary embolism, in the right base, with a small patchy infiltrate in the right lower lobe, which could represent a [place] hump. The patient is seen today June 23, 2024 in follow-up in the emergency department. He is currently sitting up on a stretcher. Awake and alert in no acute distress. Feeling better today compared to yesterday. Less right sided chest discomfort. He is maintaining good O2 saturations in the 90s on room air. Dopplers were negative for DVT. He remains on a heparin drip. Procalcitonin was negative at 0.13. White count 5.2. Hemoglobin 14.8. Platelets 113. Sodium 134. Potassium 3.3. Bicarb 27. BUN 10. Creatinine 0.72. Glucose 156. He is currently on ceftriaxone and azithromycin. He will be initiated on warfarin as he cannot afford Eliquis. Progress note dated June 24, 2024. 53-year-old male admitted with a diagnosis of pulmonary embolism. The patient had a previous DVT in the right leg. The patient apparently was supposed to be on Eliquis, 5 mg twice a day, but because of the expense, was taking 5 mg every other day. The patient was seen in the emergency department, and started on IV heparin. He admits freely he cannot afford Eliquis, so in its place, we will recommend Coumadin. Will have the pharmacy dosed the patient, and monitor the PT and INR. Clinically, the patient is stable. He is on room air. He is not receiving any IV fluids, only receiving IV heparin at the current time. He is feeling much better. Current labs include a white count of 6.5, hemoglobin 15, hematocrit 45.8, and a platelet count of 136,000. The patient's INR is 1.1. Sodium 134, potassium 3.3, chlorides 100, CO2 25, BUN 9, creatinine 0.72. Albumin is 3.3. Progress note dated June 25, 2024. 53-year-old male admitted with a diagnosis of pulmonary embolism the patient has a previous history of DVT in the right leg. The patient was not taking his Eliquis as prescribed. Currently, the patient is on Coumadin, being dosed by the pharmacy. His INR was 1.1. Currently, he is on room air. He is receiving IV heparin. Current labs include a white count 8.6, hemoglobin 16, macro 48.7, and a platelet count of 160,000. Sodium 135, potassium 3.3, chloride 98, CO2 28, BUN 12, and creatinine is 0.81. Glucose is 130. Progress note dated June 26, 2024. 53-year-old male seen initially in the emergency department, with pulmonary embolism/pulmonary infarction. The patient had been on Eliquis, but was only taking 5 mg, every other day, as he could not afford it, and was trying to make it last as long as possible. The patient states that he cannot afford that drug, so we have been currently on Coumadin, being dosed by the pharmacy. He is resting comfortably in bed. His INR is 1.2. He is on room air. He is r eceiving IV heparin. He complains of gout in his foot. He was placed on colchicine by his primary care physician. We ordered a uric acid level, but is not back as yet. Progress note dated June 27, 2024. 53-year-old male seen in the emergency room initially, with a diagnosis of pulmonary embolism/pulmonary infarction. The patient was on Eliquis, but he was not taking it properly, only taking it 5 mg every other day. It was because it was too expensive for him. He continues on IV heparin. He was transition to Coumadin. His INR was 1.2. He is on room air. Yesterday, he was complaining about gout in his foot. White count is 5.9, hemoglobin 14.4, hematocrit 44.1, platelet count normal. PT is 13.2, INR 1.2, PTT is 42.1. Sodium 134, potassium 3.9, chlorides 101, CO2 28, BUN 14, creatinine 0.83. Uric acid was 8.1, and his subsequent uric acid was 7.5. Albumin 3.3. Progress note dated June 28, 2024. 53-year-old male seen today in room 374. The patient was initially seen in the emergency department, for shortness of breath and chest pain, and was found to have a pulmonary embolism. The patient was on Eliquis, but was not taking it properly. Because of the expense he was only taking 5 mg every other day. Currently, he is on IV heparin. His INR is 1.3. Because she can no longer afford Eliquis, the patient was started on Coumadin. Pharmacy is dosing. He is on room air. He is resting comfortably. He denies any shortness of breath, or chest pain. No new labs today other than a PT of 13.6, INR 1.3, and PTT of 49.2. Objective - Vital Signs Vital signs: Vital Signs Temp 98.1 F 06/28/24 12:06 Pulse 77 06/28/24 12:06 Resp 16 06/28/24 12:06 BP 143/89 06/28/24 12:06 Pulse Ox 97 06/28/24 12:06 FiO2 Intake & Output 06/27/24 06/28/24 06/28/24 17:59 06:59 18:59 Intake Total 250 Output Total Balance 250 Weight Intake: IV 10 Invasive Line 1 Invasive Line 2 Invasive Line 3 10 Intake, IV Titration Amount Heparin Sod,Pork in 0.45% NaCl 25,000 unit In 0.45 % NaCl 1 250ml.bag @ 18 UNITS/KG/HR 17.391 mls/hr IV .[id number] [facility] Rx#: [id number] Oral 240 Output: Gastric Drainage Urine Stool Urine/Stool Mix Emesis Oral Regurgitation Other Other: Voiding Method Toilet # Voids 2 # Bowel Movements 1 - Exam No acute distress, oriented 3. HEENT examination is grossly unremarkable. Mucous membranes are moist. No oral lesions. Neck supple. Full range of motion. No adenopathy thyromegaly or neck vein distention. Cardiovascular examination reveals regular rhythm rate. S1-S2 normal. No S3 or S4. No discernible murmur noted. Lungs reveal clear breath sounds. Breath sounds are equal bilaterally. No adventitious lung sounds including wheezes rhonchi or crackles. Abdomen soft bowel sounds are heard. No masses or tenderness. Extremities are intact. No cyanosis clubbing or edema. Skin is without rash or lesion. Neurologic examination is brief but nonfocal. - Labs CBC & Chem 7: 06/27/24 07:43 06/27/24 07:43 Labs: Abnormal Lab Results - Last 24 Hours (Table) 06/28/24 06/28/24 Range/Units 07:42 07:42 PT 13.6 H (10.0-12.5) sec INR 1.3 H (<1.2) APTT 49.2 H (22.0-30.0) sec Microbiology - Last 24 Hours (Table) 06/22/24 10:23 Blood Culture - Final Blood Assessment and Plan Assessment: Segmental/subsegmental pulmonary embolism, right lower lobe, with possible pulmonary infarction, and [place] Hump. Prior history of right lower extremity DVT, noncompliant with Eliquis therapy. History of hypertension. History of gout. History of gastroesophageal reflux disease. Previous back surgery, March 2024. Anticipated neck surgery, on July 01. Plan: Plan dated June 22, 2024. The patient is seen in the emergency department, room 31. The patient came into the hospital with complaints of shortness of breath, right lower back pain, and chest pain. He was evaluated, and found to have a pulmonary embolism, in the right lower lobe, small, segmental/subsegmental, and the possibility of pulmonary infarction, which may explain the patient's pain. He has a history of hypertension, gastroesophageal reflux disease, and back surgery in March, and is apparently scheduled to have repeat neck surgery, later this month. The patient was using Eliquis, 5 mg every other day, because he could not afford it every day. He does have a prior history of right lower extremity DVT. Dopplers on this admission were negative. Echocardiogram was ordered. Additional recommendations and suggestions are forthcoming. Prognosis is guarded. Plan dated June 24, 2024. The patient will be started on Coumadin. Pharmacy will dose. The patient continues on IV heparin. Clinically, he is asymptomatic at this time. He had a very small segmental/subsegmental pulmonary embolism involving the right lower lobe. The patient may have sustained a pulmonary infarction as well, because he came up with right back pain. CT scan suggested Lucas erwin. Labs, x-rays, and medications are reviewed. I recommend no additional surgery at this time for at least 3 months. He will need follow-up in the office. Prognosis is guarded. Dictation was produced using [employer] software. Please excuse any grammatical, word or spelling errors. Plan dated June 25, 2024. The patient is currently on Coumadin. It is being dosed by pharmacy. Unfortunately, the patient's INR today was still 1.1. He continues on IV heparin. Clinically he is stable. He is on room air. Labs, x-rays, and all medications are reviewed. We will continue to follow make recommendations along the way. As an outpatient, the patient should follow-up with hematology. Dictation was produced using [employer] software. Please excuse any grammatical, word or spelling errors. Plan dated June 26, 2024. The patient was placed on colchicine for acute gout. The patient will have a uric acid level checked. The patient is currently on Coumadin being dosed by the pharmacy. His INR is only 1.2. His INR will have to be between 2 and 3. The patient should follow-up with hematology after discharge. Additional recommendations and suggestions are forthcoming. All labs, x-rays, and medications are reviewed. Sodium 134, potassium 4, chlorides 100, CO2 26, BUN 12, creatinine 0.71. Glucose is 108. Uric acid levels pending. As mentioned, INR is 1.2. PTT is 43.9. He continues on IV heparin. Prognosis is guarded. Dictation was produced using [employer] software. Please excuse any g rammatical, word or spelling errors. Plan dated June 27, 2024. The patient is currently on Coumadin, being dosed by pharmacy. His INR is only 1.2. He continues on IV heparin. He is on room air. He is really not having any pulmonary issues at this time. He was complaining about gout yesterday. His primary service put him on colchicine. Labs, x-rays, and medications are reviewed. Additional recommendations and suggestions are forthcoming. Prognosis is guarded. We will continue to follow the patient. Dictation was produced using [employer] software. Please excuse any grammatical, word or spelling errors. Plan dated June 28, 2024. The patient's INR today is 1.3. He is being dosed with Coumadin, by pharmacy. He continues on IV heparin. He is not having any respiratory issues. No chest pain or chest discomfort. The patient was previously on Eliquis, but could not afford it, so was only taking 5 mg every other day. We will continue to follow make recommendations. Prognosis is guarded. All labs, x-rays, and medications are reviewed. Dictation was produced using [employer] software. Please excuse any grammatical, word or spelling errors. Time with Patient: Less than 30
[2024-06-28] MEDS: WARFARIN 2.5 MG TAB PO ONE (17:10)
[2024-06-28] MEDS: WARFARIN 10 MG TAB PO ONE (17:10)
[2024-06-29 08:21] LABS: INR 1.4 (<1.2); Partial Thromboplastin Time 54.6 sec (22.0-30.0); Prothrombin Time 14.5 sec (10.0-12.5)
--- NOTE | 2024-06-29 08:36 | P.PN ---
Subjective Progress Note Date: 06/29/24 This is a 53-year-old male who presented to the emergency department with complaints of chest pain, shortness of breath and back pain who was found to have a pulmonary embolism. Patient has a history of hypertension, GERD, recent back surgery in March 2024, and a history of a DVT. Patient has been on Eliquis, however he does not have insurance and has been trying to make his Eliquis doses last. He is reportedly taking it every other day. Patient seen this morning laying in bed resting comfortably. He reports his pain is improved. He reportedly is supposed to undergo a neck surgery in a few weeks. 06/25/2024 Patient seen this morning lying in bed resting comfortably. He started Coumadin yesterday, INR is not back yet today at time of dictation. Patient reports some left foot and toe pain, thinks he may be having a gout attack. He does report a prior history of gout. 06/29/2024 Patient seen and examined lying in bed this morning resting comfortably. Still awaiting INR to be therapeutic. INR yesterday was 1.3. Objective - Vital Signs Vital signs: Vital Signs Temp 98.3 F 06/29/24 03:59 Pulse 70 06/29/24 03:59 Resp 16 06/29/24 03:59 BP 128/92 06/29/24 03:59 Pulse Ox 94 L 06/29/24 03:59 FiO2 Intake & Output 06/28/24 06/29/24 06/29/24 18:59 06:59 18:59 Intake Total 730 225.57 356 Output Total 0 Balance 730 225.57 356 Weight 89.3 kg Intake: IV 10 Invasive Line 3 10 Intake, IV Titration 225.57 Amount Heparin Sod,Pork in 0.45% 225.57 NaCl 25,000 unit In 0.45 % NaCl 1 250ml.bag @ 18 UNITS/KG/HR 17.391 mls/hr IV .[id number] [facility] Rx#: [id number] Oral 720 356 Output: Stool 0 Other: Voiding Method Toilet Toilet # Voids 2 0 # Bowel Movements 1 - Constitutional General appearance: Present: cooperative, no acute distress - EENT Eyes: Present: PERRLA - Neck Neck: Present: normal ROM. Absent: lymphadenopathy, rigidity - Respiratory Respiratory: bilateral: diminished - Cardiovascular Heart sounds: normal: S1, S2 - Gastrointestinal General gastrointestinal: Present: soft. Absent: tenderness - Integumentary Integumentary: Present: normal, normal turgor - Psychiatric Psychiatric: Present: A&O x's 3 - Labs CBC & Chem 7: 06/27/24 07:43 06/27/24 07:43 Labs: Abnormal Lab Results - Last 24 Hours (Table) 06/29/24 Range/Units 07:11 PT 14.5 H (10.0-12.5) sec INR 1.4 H (<1.2) APTT 54.6 H (22.0-30.0) sec Assessment and Plan (1) GERD (gastroesophageal reflux disease) Current Visit: Yes Status: Acute Code(s): K21.9 - GASTRO-ESOPHAGEAL REFLUX DISEASE WITHOUT ESOPHAGITIS SNOMED Code(s): 144641718 (2) History of DVT (deep vein thrombosis) Current Visit: Yes Status: Acute Code(s): Z86.718 - PERSONAL HISTORY OF OTHER VENOUS THROMBOSIS AND EMBOLISM SNOMED Code(s): 378718136 (3) Pulmonary embolism Current Visit: Yes Status: Acute Code(s): I26.99 - OTHER PULMONARY EMBOLISM WITHOUT ACUTE COR PULMONALE SNOMED Code(s): 97000560 (4) Hypertension Current Visit: No Status: Acute Code(s): I10 - ESSENTIAL (PRIMARY) HYPERTENSION SNOMED Code(s): 44761378 (5) Lumbar spinal stenosis Current Visit: No Status: Acute Code(s): M48.061 - SPINAL STENOSIS, LUMBAR REGION WITHOUT NEUROGENIC GIANNI SNOMED Code(s): 80197067 (6) History of gout Current Visit: Yes Status: Acute Code(s): Z87.39 - PERSONAL HISTORY OF DISEASES OF THE MS SYS AND CONN TISS SNOMED Code(s): 647861871 Plan: Appreciate pulmonary recommendations. Check INR in the morning. Patient seen and evaluated by nurse practitioner, physician in agreement with plan.
[2024-06-29 12:29] VITALS: BMI 25.9
--- NOTE | 2024-06-29 16:05 | P.PN ---
Subjective Progress Note Date: 06/29/24 On 06/29/2024, the patient is being treated for recurrent pulm embolism. He does have a previous history of pulm embolism and the patient was off anticoagulants due to financial reasons. He is unable to afford Eliquis and the patient was started on anticoagulation with warfarin. His current PT/INR showed a PT level of 14.5 with an INR of 1.4. PTT is at 54.6. Doppler of the lower extremities were negative. Echocardiogram showed no evidence of any pulmonary hypertension. He has a preserved LV function and this echocardiogram was done on 06/23/2024. His ejection fraction is around 55 to 60%. No valvular abnormalities. The patient is calm and comfortable. Tolerating the anticoagulation. He does have gouty pain in his left foot and the patient was started on colchicine. Objective - Vital Signs Vital signs: Vital Signs Temp 98.3 F 06/29/24 08:55 Pulse 71 06/29/24 11:01 Resp 16 06/29/24 11:01 BP 142/80 06/29/24 11:01 Pulse Ox 97 06/29/24 11:01 FiO2 Intake & Output 06/28/24 06/29/24 06/29/24 18:59 06:59 18:59 Intake Total 730 225.57 776 Output Total 0 200 Balance 730 225.57 576 Weight 89.3 kg 89.3 kg Intake: IV 10 Invasive Line 3 10 Intake, IV Titration 225.57 Amount Heparin Sod,Pork in 0.45% 225.57 NaCl 25,000 unit In 0.45 % NaCl 1 250ml.bag @ 18 UNITS/KG/HR 17.391 mls/hr IV .[id number] [facility] Rx#: [id number] Oral 720 776 Output: Urine 200 Stool 0 Other: Voiding Method Toilet Toilet Toilet # Voids 2 0 2 # Bowel Movements 1 - Exam The patient appeared well nourished and normally developed. Vital signs as documented. Head exam is unremarkable. No scleral icterus or corneal arcus noted. Neck is without jugular venous distension, thyromegaly, or carotid bruits. Carotid upstrokes are brisk bilaterally. Lungs are clear to auscultation and percussion. Cardiac exam reveals the PMI to be normally sized and situated. Rhythm is regular. First and second heart sounds normal. No murmurs, rubs or gallops. Abdominal exam reveals normal bowel sounds, no masses, no organomegaly and no aortic enlargement. Extremities are nonedematous and both femoral and pedal pulses are normal. Examination of the skin revealed no evidence of significant rashes, suspicious appearing nevi or other concerning lesions. Neurologically, the patient is awake and alert and the patient does not have any focal neurological deficit. Cranial nerves are essentially intact. - Labs CBC & Chem 7: 06/27/24 07:43 06/27/24 07:43 Labs: Abnormal Lab Results - Last 24 Hours (Table) 06/29/24 Range/Units 07:11 PT 14.5 H (10.0-12.5) sec INR 1.4 H (<1.2) APTT 54.6 H (22.0-30.0) sec Assessment and Plan Plan: Acute recurrent pulmonary embolism. The patient has a segmental/subsegmental pulmonary embolism, right lower lobe, with possible pulmonary infarction, and [place] Hump. No significant hemodynamic instability. Doppler of the lower extremities are negative. No evidence of any strain pattern of pulm hypertension. Prior history of right lower extremity DVT, noncompliant with Eliquis therapy. History of hypertension. History of gout. History of gastroesophageal reflux disease. Previous back surgery, March 2024. Anticipated neck surgery, on July 01. Plan: The patient is currently on room air oxygen Continue IV heparin Continue anticoagulation with warfarin, pharmacy to dose and the patient's INR is at 1.4 Doppler of the lower extremities are negative Colchicine for gout Increase mobility Will continue to follow
[2024-06-29] MEDS: WARFARIN 7.5 MG TAB PO ONE (17:18)
[2024-06-30 07:30] LABS: INR 1.5 (<1.2); Partial Thromboplastin Time 63.6 sec (22.0-30.0); Prothrombin Time 16.1 sec (10.0-12.5)
--- NOTE | 2024-06-30 08:34 | P.PN ---
Subjective Progress Note Date: 06/30/24 This is a 53-year-old male who presented to the emergency department with complaints of chest pain, shortness of breath and back pain who was found to have a pulmonary embolism. Patient has a history of hypertension, GERD, recent back surgery in March 2024, and a history of a DVT. Patient has been on Eliquis, however he does not have insurance and has been trying to make his Eliquis doses last. He is reportedly taking it every other day. Patient seen this morning laying in bed resting comfortably. He reports his pain is improved. He reportedly is supposed to undergo a neck surgery in a few weeks. 06/25/2024 Patient seen this morning lying in bed resting comfortably. He started Coumadin yesterday, INR is not back yet today at time of dictation. Patient reports some left foot and toe pain, thinks he may be having a gout attack. He does report a prior history of gout. 06/29/2024 Patient seen and examined lying in bed this morning resting comfortably. Still awaiting INR to be therapeutic. INR yesterday was 1.3. 06/30/2024 Patient seen and examined laying in bed this morning resting comfortably. INR yesterday was 1.4 and this morning INR is 1.5. Objective - Vital Signs Vital signs: Vital Signs Temp 98.2 F 06/30/24 03:28 Pulse 65 06/30/24 07:29 Resp 16 06/30/24 07:29 BP 131/88 06/30/24 07:29 Pulse Ox 98 06/30/24 07:29 FiO2 Intake & Output 06/29/24 06/30/24 06/30/24 18:59 06:59 18:59 Intake Total 1746 197.921 Output Total 200 0 Balance 1546 197.921 Weight 89.3 kg 89.3 kg Intake: Intake, IV Titration 250 197.921 Amount Heparin Sod,Pork in 0.45% 250 197.921 NaCl 25,000 unit In 0.45 % NaCl 1 250ml.bag @ 18 UNITS/KG/HR 17.391 mls/hr IV .[id number] [facility] Rx#: [id number] Oral 1496 Output: Urine 200 Stool 0 Other: Voiding Method Toilet Toilet # Voids 2 6 - Constitutional General appearance: Present: cooperative, no acute distress - EENT Eyes: Present: PERRLA - Neck Neck: Present: normal ROM. Absent: lymphadenopathy, rigidity - Respiratory Respiratory: bilateral: diminished - Cardiovascular Heart sounds: normal: S1, S2 - Gastrointestinal General gastrointestinal: Present: soft. Absent: tenderness - Integumentary Integumentary: Present: normal, normal turgor - Psychiatric Psychiatric: Present: A&O x's 3 - Labs CBC & Chem 7: 06/27/24 07:43 06/27/24 07:43 Labs: Abnormal Lab Results - Last 24 Hours (Table) 06/30/24 Range/Units 06:44 PT 16.1 H (10.0-12.5) sec INR 1.5 H (<1.2) APTT 63.6 H (22.0-30.0) sec Assessment and Plan (1) GERD (gastroesophageal reflux disease) Current Visit: Yes Status: Acute Code(s): K21.9 - GASTRO-ESOPHAGEAL REFLUX DISEASE WITHOUT ESOPHAGITIS SNOMED Code(s): 006953350 (2) History of DVT (deep vein thrombosis) Current Visit: Yes Status: Acute Code(s): Z86.718 - PERSONAL HISTORY OF OTHER VENOUS THROMBOSIS AND EMBOLISM SNOMED Code(s): 082929548 (3) Pulmonary embolism Current Visit: Yes Status: Acute Code(s): I26.99 - OTHER PULMONARY EMBOLISM WITHOUT ACUTE COR PULMONALE SNOMED Code(s): 88517426 (4) Hypertension Current Visit: No Status: Acute Code(s): I10 - ESSENTIAL (PRIMARY) HYPERTENSION SNOMED Code(s): 83176637 (5) Lumbar spinal stenosis Current Visit: No Status: Acute Code(s): M48.061 - SPINAL STENOSIS, LUMBAR REGION WITHOUT NEUROGENIC GIANNI SNOMED Code(s): 55212868 (6) History of gout Current Visit: Yes Status: Acute Code(s): Z87.39 - PERSONAL HISTORY OF DISEASES OF THE MS SYS AND CONN TISS SNOMED Code(s): 146181577 Plan: Appreciate pulmonary recommendations. Check INR in the morning. Patient seen and evaluated by nurse practitioner, physician in agreement with plan.
--- NOTE | 2024-06-30 16:59 | P.PN ---
Subjective Progress Note Date: 06/30/24 On 06/29/2024, the patient is being treated for recurrent pulm embolism. He does have a previous history of pulm embolism and the patient was off anticoagulants due to financial reasons. He is unable to afford Eliquis and the patient was started on anticoagulation with warfarin. His current PT/INR showed a PT level of 14.5 with an INR of 1.4. PTT is at 54.6. Doppler of the lower extremities were negative. Echocardiogram showed no evidence of any pulmonary hypertension. He has a preserved LV function and this echocardiogram was done on 06/23/2024. His ejection fraction is around 55 to 60%. No valvular abnormalities. The patient is calm and comfortable. Tolerating the anticoagulation. He does have gouty pain in his left foot and the patient was started on colchicine. Today's evaluation of 06/30/2024, the patient denies having any specific complaints. The patient is calm and comfortable. INR is at 1.5 the patient remains on IV heparin. The patient receiving warfarin pharmacy to dose, 50 mg to be given to him today. No hemoptysis. No pleurisy. No chest pain. No shortness of breath. No other complaints otherwise. The patient remains on room air oxygen. Objective - Vital Signs Vital signs: Vital Signs Temp 98.2 F 06/30/24 03:28 Pulse 65 06/30/24 07:29 Resp 16 06/30/24 07:29 BP 131/88 06/30/24 07:29 Pulse Ox 98 06/30/24 07:29 FiO2 Intake & Output 06/29/24 06/30/24 06/30/24 18:59 06:59 18:59 Intake Total 1746 197.921 180 Output Total 200 0 Balance 1546 197.921 180 Weight 89.3 kg 89.3 kg Intake: Intake, IV Titration 250 197.921 Amount Heparin Sod,Pork in 0.45% 250 197.921 NaCl 25,000 unit In 0.45 % NaCl 1 250ml.bag @ 18 UNITS/KG/HR 17.391 mls/hr IV .[id number] [facility] Rx#: [id number] Oral 1496 180 Output: Urine 200 Stool 0 Other: Voiding Method Toilet Toilet # Voids 2 6 - Exam The patient appeared well nourished and normally developed. Vital signs as documented. Head exam is unremarkable. No scleral icterus or corneal arcus noted. Neck is without jugular venous distension, thyromegaly, or carotid bruits. Carotid upstrokes are brisk bilaterally. Lungs are clear to auscultation and percussion. Cardiac exam reveals the PMI to be normally sized and situated. Rhythm is regular. First and second heart sounds normal. No murmurs, rubs or gallops. Abdominal exam reveals normal bowel sounds, no masses, no organomegaly and no aortic enlargement. Extremities are nonedematous and both femoral and pedal pulses are normal. Examination of the skin revealed no evidence of significant rashes, suspicious appearing nevi or other concerning lesions. Neurologically, the patient is awake and alert and the patient does not have any focal neurological deficit. Cranial nerves are essentially intact. - Labs CBC & Chem 7: 06/27/24 07:43 06/27/24 07:43 Labs: Abnormal Lab Results - Last 24 Hours (Table) 06/30/24 Range/Units 06:44 PT 16.1 H (10.0-12.5) sec INR 1.5 H (<1.2) APTT 63.6 H (22.0-30.0) sec Assessment and Plan Plan: Acute recurrent pulmonary embolism. The patient has a segmental/subsegmental pulmonary embolism, right lower lobe, with possible pulmonary infarction, and [place]. No significant hemodynamic instability. Doppler of the lower extremities are negative. No evidence of any strain pattern of pulm hypertension. The patient remains clinically stable, awaiting full anticoagulation with warfarin. Prior history of right lower extremity DVT, noncompliant with Eliquis therapy. History of hypertension. History of gout. History of gastroesophageal reflux disease. Previous back surgery, March 2024. Anticipated neck surgery, on July 01. Plan: The patient is currently on room air oxygen Continue IV heparin Continue anticoagulation with warfarin, pharmacy to dose and the patient's INR is at 1.4 from 1.5 Doppler of the lower extremities are negative Colchicine for gout Increase mobility Will continue to follow
[2024-06-30] MEDS: WARFARIN 7.5 MG TAB PO ONE (17:03)
[2024-07-01 06:39] LABS: HCT 48.1 % (39.0-53.0); HGB 15.3 gm/dL (13.0-17.5); MCH 30.2 pg (25.0-35.0); MCHC 31.8 g/dL (31.0-37.0); Mean Platelet Volume 8.2; Platelet Count 223 k/uL (150-450); RBC 5.06 m/uL (4.30-5.90); RDW 13.9 % (11.5-15.5); WBC 6.3 k/uL (3.8-10.6)
[2024-07-01 06:51] LABS: INR 2.1 (<1.2); Partial Thromboplastin Time 77.6 sec (22.0-30.0); Prothrombin Time 21.3 sec (10.0-12.5)
[2024-07-01 07:55] LABS: ALT 88 U/L (4-49); AST 88 U/L (17-59); African American GFR (CKD) >90 (>60 ml/min/1.73 sqM); Albumin 3.8 g/dL (3.5-5.0); Alkaline Phosphatase 144 U/L (38-126); Anion Gap 10 mmol/L; Blood Urea Nitrogen 16 mg/dL (9-20); Carbon Dioxide 25 mmol/L (22-30); Chloride 102 mmol/L (98-107); Glucose 119 mg/dL (74-99); Non-African American GFR(CKD) >90 (>60 ml/min/1.73 sqM); Potassium 4.6 mmol/L (3.5-5.1); Sodium 137 mmol/L (137-145); Total Bilirubin 0.5 mg/dL (0.2-1.3); Total Protein 7.3 g/dL (6.3-8.2)
--- NOTE | 2024-07-01 08:48 | P.DS ---
Providers Date of admission: 06/22/24 10:09 Attending physician: Boni Monet Consults: 06/22/24 09:37 Consult Physician Routine Consulting Provider: Mitchell Birmingham Reason/Comments: PE Do you want consulting provider notified?: Already Contacted Primary care physician: Boni Monet - Discharge Diagnosis(es) (1) GERD (gastroesophageal reflux disease) Current Visit: Yes Status: Acute (2) Pulmonary embolism Current Visit: Yes Status: Acute (3) Hypertension Current Visit: No Status: Acute (4) Lumbar spinal stenosis Current Visit: No Status: Acute Hospital Course: This is history and physical a 53-year-old white male who is essentially admitted and treated for recurrent venous thromboembolism. The patient due to cost constraints was started on warfarin. He was discharged on 7.5 mg of warfarin and had a gout flareup while he was here. He will restarted on Colcrys. He will follow-up with me in the a.m. for PT/INR testing. The patient is tolerating diet respiratory status is stable and we will discharge in stable condition Patient Condition at Discharge: Stable Plan - Discharge Summary New Discharge Prescriptions: New Colchicine [Colcrys] 0.6 mg PO BID #60 each Warfarin [Coumadin] 7.5 mg PO ONCE@1800 #30 tab Continue Bisoprolol-Hctz 2.5-6.25 mg [Ziac 2.5-6.25 MG] 1 tab PO DAILY Omeprazole Magnesium [PriLOSEC OTC] 20 mg PO DAILY PRN PRN Reason: Heartburn Multivitamins, Thera [Multivitamin (formulary)] 1 tab PO Q3D Discharge Medication List Bisoprolol-Hctz 2.5-6.25 mg [Ziac 2.5-6.25 MG] 1 tab PO DAILY 05/18/23 [History] Omeprazole Magnesium [PriLOSEC OTC] 20 mg PO DAILY PRN 05/18/23 [History] Multivitamins, Thera [Multivitamin (formulary)] 1 tab PO Q3D 08/09/23 [History] Colchicine [Colcrys] 0.6 mg PO BID #60 each 07/01/24 [Rx] Warfarin [Coumadin] 7.5 mg PO ONCE@1800 #30 tab 07/01/24 [Rx] Follow up Appointment(s)/Referral(s): Neva Luque MD [STAFF PHYSICIAN] - 2 Weeks (hematology ) Boni Monet MD [Primary Care Provider] - 1-2 days Mitchell Birmingham DO [Doctor of Osteopathic Medicine] - 2 Weeks Discharge/Stand Alone Forms: Who Do I Call?, Community Resources
[2024-07-01 12:19] VITALS: BP 145/84; PULSE 65; RESP 18; TEMP 98.5
[2024-07-01] MEDS ORDERED: WARFARIN 7.5 MG TAB PO ONE (18:00)
--- NOTE | 2024-07-01 19:16 | P.PN ---
Subjective Progress Note Date: 07/01/24 On 06/29/2024, the patient is being treated for recurrent pulm embolism. He does have a previous history of pulm embolism and the patient was off anticoagulants due to financial reasons. He is unable to afford Eliquis and the patient was started on anticoagulation with warfarin. His current PT/INR showed a PT level of 14.5 with an INR of 1.4. PTT is at 54.6. Doppler of the lower extremities were negative. Echocardiogram showed no evidence of any pulmonary hypertension. He has a preserved LV function and this echocardiogram was done on 06/23/2024. His ejection fraction is around 55 to 60%. No valvular abnormalities. The patient is calm and comfortable. Tolerating the anticoagulation. He does have gouty pain in his left foot and the patient was started on colchicine. Today's evaluation of 06/30/2024, the patient denies having any specific complaints. The patient is calm and comfortable. INR is at 1.5 the patient remains on IV heparin. The patient receiving warfarin pharmacy to dose, 50 mg to be given to him today. No hemoptysis. No pleurisy. No chest pain. No shortness of breath. No other complaints otherwise. The patient remains on room air oxygen. On today's evaluation of 07/01/2024, the patient's INR is at 2.1. The patient is fully anticoagulated. IV heparin will be discontinued and the patient will be discharged home on warfarin at a dose of 7.5 mg p.o. daily. No significant foot pain. The patient remains on colchicine. No other significant events overnight . The patient is currently on room air oxygen. No bleeding complications. The white cell count is at 6.3 with hemoglobin 15.3 and a platelet count of 223. INR is at 2.1. BUN 16 with a creatinine of 0.8. Sodium levels at 137 and a potassium level is at 4.6. Objective - Vital Signs Vital signs: Vital Signs Temp 98.0 F 07/01/24 08:17 Pulse 61 07/01/24 08:17 Resp 16 07/01/24 08:17 BP 144/78 07/01/24 08:17 Pulse Ox 99 07/01/24 08:17 FiO2 Intake & Output 06/30/24 07/01/24 07/01/24 18:59 06:59 18:59 Intake Total 765.023 226.665 180 Output Total 0 Balance 765.023 226.665 180 Weight 89.7 kg Intake: Intake, IV Titration 225.023 226.665 Amount Heparin Sod,Pork in 0.45% 225.023 226.665 NaCl 25,000 unit In 0.45 % NaCl 1 250ml.bag @ 18 UNITS/KG/HR 17.391 mls/hr IV .[id number] [facility] Rx#: [id number] Oral 540 180 Output: Stool 0 Other: Voiding Method Toilet # Voids 1 2 - Exam The patient appeared well nourished and normally developed. Vital signs as docum ented. Head exam is unremarkable. No scleral icterus or corneal arcus noted. Neck is without jugular venous distension, thyromegaly, or carotid bruits. Carotid upstrokes are brisk bilaterally. Lungs are clear to auscultation and percussion. Cardiac exam reveals the PMI to be normally sized and situated. Rhythm is regular. First and second heart sounds normal. No murmurs, rubs or gallops. Abdominal exam reveals normal bowel sounds, no masses, no organomegaly and no aortic enlargement. Extremities are nonedematous and both femoral and pedal pulses are normal. Examination of the skin revealed no evidence of significant rashes, suspicious appearing nevi or other concerning lesions. Neurologically, the patient is awake and alert and the patient does not have any focal neurological deficit. Cranial nerves are essentially intact. - Labs CBC & Chem 7: 07/01/24 06:15 07/01/24 06:15 Labs: Abnormal Lab Results - Last 24 Hours (Table) 07/01/24 07/01/24 Range/Units 06:15 06:15 PT 21.3 H (10.0-12.5) sec INR 2.1 H (<1.2) APTT 77.6 H (22.0-30.0) sec Glucose 119 H (74-99) mg/dL AST 88 H (17-59) U/L ALT 88 H (4-49) U/L Alkaline Phosphatase 144 H (38-126) U/L Assessment and Plan Plan: Acute recurrent pulmonary embolism. The patient has a segmental/subsegmental pulmonary embolism, right lower lobe, with possible pulmonary infarction, and [place]. No significant hemodynamic instability. Doppler of the lower extremities are negative. No evidence of any strain pattern of pulm hypertension. The patient remains clinically stable, fully anticoagulated with an INR of 2.1 Prior history of right lower extremity DVT, noncompliant with Eliquis therapy. Essentially due to cost of the medication. History of hypertension. History of gout. History of gastroesophageal reflux disease. Previous back surgery, March 2024. Anticipated neck surgery, on July 01. Plan: The patient is currently on room air oxygen Discontinue IV heparin as the patient's INR is therapeutic at 2.1. The patient to be discharged home on a warfarin dose of 7.5 mg p.o. daily with a outpatient monitoring of the PT/INR Doppler of the lower extremities are negative Colchicine for gout Increase mobility Will discharge patient home today.
== END 2024-07-01 14:39 | disposition home or self-care (01) | DRG 176 ==
LOC: EC 07:20 → 3SCARD 10:09
PROVIDERS: ADMIT Family Medicine; ATTEND Family Medicine
DX: I26.93 Single subsegmental thrombotic pulmonary embolism without acute cor pulmonale (principal); E66.9 Obesity, unspecified; I10 Essential (primary) hypertension; F41.9 Anxiety disorder, unspecified; K21.00 Gastro-esophageal reflux disease with esophagitis, without bleeding; K21.9 Gastro-esophageal reflux disease without esophagitis; M10.9 Gout, unspecified; M48.061 Spinal stenosis, lumbar region without neurogenic claudication; G89.29 Other chronic pain; T45.516A Underdosing of anticoagulants, initial encounter; R09.02 Hypoxemia; Z59.71 Insufficient health insurance coverage; Z79.01 Long term (current) use of anticoagulants; Z86.711 Personal history of pulmonary embolism; Z86.718 Personal history of other venous thrombosis and embolism; Z87.891 Personal history of nicotine dependence; Z91.120 Patient's intentional underdosing of medication regimen due to financial hardship; Z20.822 Contact with and (suspected) exposure to COVID-19; Z71.3 Dietary counseling and surveillance; Z28.21 Immunization not carried out because of patient refusal; Z88.8 Allergy status to other drugs, medicaments and biological substances
CPT/HCPCS: 36415; 71046; 71275; 80053; 83605; 83735; 84145; 84484; 84550; 85025; 85027; 85610; 85730; 87040; 87449; 87636; 93306; 93970; 96365; 96366; 96367; 96368; 96375; 96376; 99291